=== PATIENT | female | born 1965 | race Caucasian/White ===

== ENCOUNTER 2016-02-29 18:03 | Emergency (ER) | payer BC, OTHER ==
[~2016-02-29] VITALS: Ht 157.5 cm; Wt 91.1 kg
[~2016-02-29 18:03] MED LIST: CARI350T27 PO; HYDR-5688 PO; KLN1X PO
[2016-02-29 18:17] VITALS: Ht 157.5 cm; Wt 91.1 kg
[2016-02-29] MEDS ORDERED: ONDANSETRON INJ 2 MG/ML 2 ML VIAL IV STA (19:45)
[2016-02-29] MEDS ORDERED: SODIUM CHLORIDE 0.9% 1000ML 1,000 ML IV STA (19:45)
[2016-02-29] MEDS ORDERED: KETOROLAC TROMETHAMINE 30 MG/ML VIAL IV STA (19:45)
[2016-02-29] MEDS ORDERED: HYDROmorphone INJ 0.5 MG/0.5 ML SYR IV STA ×2 (20:04→21:24)
[2016-02-29 20:30] LABS: BASO % 0.1 %; BASO ABS # 0.01 K/uL (0-0.2); COMPLETE YES; EOS % 3.1 %; HEMATOCRIT 35.4 % (37-47); IG% 0.1 %; LYMPH % 25.8 %; LYMPH ABS # 1.76 K/uL (1.2-3.4); MEAN CELL VOLUME 92.7 fL (80-100); MEAN CORPUSCULAR HEMOGLOBIN 32.2 pg (25-34); MEAN CORPUSCULAR HGB CONC 34.7 g/dl (32-36); MEAN PLATELET VOLUME 8.7 fL (7.4-10.4); MONO % 4.4 %; NEUT % 66.5 %; PLATELET COUNT 310 K/uL (130-400); RED BLOOD COUNT 3.82 M/uL (4.2-5.4); WHITE BLOOD COUNT 6.83 K/uL (4.8-10.8)
[2016-02-29 20:34] LABS: URINE APPEARANCE CLEAR (CLEAR); URINE BILIRUBIN NEG (NEG); URINE COLOR YELLOW; URINE EPITHELIAL CELL AUTO 20-30 /lpf (0-5); URINE NITRITE NEG (NEG); URINE PH 5.5 (4.5-7.5); URINE SPECIFIC GRAVITY 1.017 (1.000-1.030); UROBILINOGEN NEG (NEG); ZZUR CULT IF INDIC CLEAN CATCH NO
[2016-02-29 20:44] LABS: MANUAL MICROSCOPIC REQUIRED? NO; REVIEW REQ? NO
[2016-02-29 20:50] LABS: BUN/CREATININE RATIO 16.5 (10-20); CREATININE 1.2 mg/dl (0.60-1.20); POTASSIUM 3.8 mmol/L (3.5-5.1)
--- NOTE | 2016-02-29 21:17 | DIAGNOSTIC IMAGING REPORT ---
CT OF THE ABDOMEN AND PELVIS WITHOUT CONTRAST, STONE PROTOCOL CLINICAL HISTORY: Costovertebral angle tenderness. History of kidney stones. COMPARISON STUDY: CT of the abdomen and pelvis April 14, 2015 and renal ultrasound May 14, 2015. TECHNIQUE: Helical axial images of the abdomen and pelvis were obtained without IV or oral contrast according to renal stone protocol. FINDINGS: Lung bases are clear. There is a small hiatal hernia. A 4 mm left renal calculus is noted as well as a 2 mm right renal calculus. There are no ureteral calculi. There is no hydronephrosis. There is no perinephric infiltration. Evaluation of the remainder of the abdomen and pelvis is suboptimal on this unenhanced exam. The liver, spleen, adrenal glands and pancreas are normal. There is no evidence for a bowel obstruction. The appendix is partially obscured but visualized portions are normal. IMPRESSION: 1. Bilateral nephrolithiasis. No ureteral calculi or hydronephrosis. 2. No acute process within the abdomen or pelvis on unenhanced exam. Electronically signed by: Anjel Meza M.D. 02/29/2016 9:16 PM Dictated Date/Time: 02/29/2016 9:06 PM
--- NOTE | 2016-02-29 22:34 | DIAGNOSTIC IMAGING REPORT ---
HEAD CT NONCONTRAST CT DOSE: 691.05 mGy.cm HISTORY: Headache TECHNIQUE: Multiaxial CT images of the head were performed without the use of intravenous contrast. Automated exposure control was utilized for this study. Comparison: Head CT 12/08/2015. Findings: The paranasal sinuses and mastoid air cells are clear. The calvarium and skull base are intact. The ventricles and sulci are within normal limits. There is no mass, hematoma, midline shift, or acute infarct. Impression: No acute intracranial abnormality. Electronically signed by: Dwain Gaspar M.D. 02/29/2016 10:33 PM Dictated Date/Time: 02/29/2016 10:29 PM
--- NOTE | 2016-03-01 00:01 | Medical Consult ---
Consultation Date of Consultation: Feb 29, 2016. Attending Physician: Reason for Consultation: Migraine History of Present Illness 50 y/o F w/Hx HTN, hypothyroid and chronic HAs - combination of cervical and migranous. Pt states that she has approximately 2 headaches weekly. Today she developed a DALLAS that was not responding to her meds and presented to the ER as a result. She states she has an upset stomach but has not had vomited and has been able to tolerate her medications. She describes her pain as tracking from the back of her neck over her head to behind her eye, throbbing in nature and leading to difficulty focusing her vision on the R. She had accompanying b/l back lower back pain without dysuria or hematuria. She has not had a fever or vision loss. A CTH in the ER was WNL. She responded to IV narcotics and as she is tolerating PO can likely be D/Cd with an oral equivalent. Past Medical/Surgical History Medical Problems: (1) Closed head injury Status: Acute (2) Dysuria Status: Acute (3) Flank pain Status: Acute (4) Flank pain Status: Acute (5) Headache Status: Acute (6) Headache Status: Acute (7) Headache Status: Acute Family History Diabetes mellitus Heart disease Hypertension Social History Smoking Status: Never Smoker Drug Use: none Marital Status: Housing Status: lives with family Occupation Status: employed Allergies Coded Allergies: Paroxetine (Verified Allergy, Intermediate, nauseous, 11/28/15) Butorphanol (Verified Allergy, Unknown, nauseous, 11/28/15) Cortisone (Verified Allergy, Unknown, HIVES,facial swelling, 11/28/15) Sulfa Drugs (Verified Allergy, Unknown, 11/28/15) Morphine (Verified Adverse Reaction, Mild, nauesous, 11/28/15) Iodine (Verified Adverse Reaction, Unknown, itch, 11/28/15) Review of Systems Constitutional: No chills, No fever, No sweats Eyes: + eye pain, + worsening of vision ENT: No hearing loss, No nasal symptoms, No unusual epistaxis Respiratory: No cough, No sputum, No wheezing Cardiovascular: No PND, No chest pain, No orthopnea Abdomen: + nausea, + pain, No vomiting Musculoskeletal: No joint pain, No muscle pain Genitourinary - Female: No dysuria, No urinary frequency Neurologic: No memory loss, No paralysis, No weakness Psychiatric: No depression symptoms Endocrine: No excessive thirst, No fatigue Hematologic / Lymphatic: No abnormal bleeding/bruising Integumentary: No rash Allergic / Immunologic: No environmental allergies, No pet sensitivities, No seasonal allergies Physical Exam Date Time Temp Pulse Resp B/P Pulse Ox O2 Delivery O2 Flow Rate FiO2 02/29/16 23:03 86 18 138/85 95 Room Air 02/29/16 21:07 87 18 144/80 97 Room Air 02/29/16 18:17 37.4 111 18 151/87 96 Room Air General Appearance: WD/WN, no apparent distress Head: normocephalic, atraumatic Eyes: normal inspection, PERRL, EOMI ENT: normal ENT inspection, pharynx normal Neck: supple, no JVD Respiratory/Chest: chest non-tender, lungs clear, normal breath sounds, no respiratory distress, no accessory muscle use Cardiovascular: regular rate, rhythm, no edema, no gallop, no JVD, no murmur, normal peripheral pulses Abdomen/GI: normal bowel sounds, non tender, soft Back: normal inspection, no CVA tenderness, no muscle spasm, normal range of motion Extremities/Musculoskelatal: normal inspection, no calf tenderness, normal capillary refill, no pedal edema, normal range of motion 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, no motor/sensory deficits, alert, normal mood/affect, normal reflexes, oriented x 3 Skin: normal color, warm/dry, no rash Laboratory Results Last 24 Hours Test 02/29/16 20:00 02/29/16 20:10 Urine Color YELLOW Urine Appearance CLEAR Urine pH 5.5 Urine Specific [place] 1.017 Urine Protein NEG Urine Glucose (UA) NEG Urine Ketones TRACE Urine Occult Blood NEG Urine Nitrite NEG Urine Bilirubin NEG Urine Urobilinogen NEG Urine Leukocyte Esterase TRACE Urine WBC (Auto) 1-5 /hpf Urine RBC (Auto) 0-4 /hpf Urine Hyaline Casts (Auto) 1-5 /lpf Urine Epithelial Cells (Auto) 20-30 /lpf Urine Bacteria (Auto) NEG White Blood Count 6.83 K/uL Red Blood Count 3.82 M/uL Hemoglobin 12.3 g/dL Hematocrit 35.4 % Mean Corpuscular Volume 92.7 fL Mean Corpuscular Hemoglobin 32.2 pg Mean Corpuscular Hemoglobin Concent 34.7 g/dl Platelet Count 310 K/uL Mean Platelet Volume 8.7 fL Neutrophils (%) (Auto) 66.5 % Lymphocytes (%) (Auto) 25.8 % Monocytes (%) (Auto) 4.4 % Eosinophils (%) (Auto) 3.1 % Basophils (%) (Auto) 0.1 % Neutrophils # (Auto) 4.54 K/uL Lymphocytes # (Auto) 1.76 K/uL Monocytes # (Auto) 0.30 K/uL Eosinophils # (Auto) 0.21 K/uL Basophils # (Auto) 0.01 K/uL RDW Standard Deviation 43.7 fL RDW Coefficient of Variation 12.8 % Immature Granulocyte % (Auto) 0.1 % Immature Granulocyte # (Auto) 0.01 K/uL Sodium Level 141 mmol/L Potassium Level 3.8 mmol/L Chloride Level 104 mmol/L Carbon Dioxide Level 25 mmol/L Anion Gap 12.0 mmol/L Blood Urea Nitrogen 20 mg/dl Creatinine 1.20 mg/dl Est Creatinine Clear Calc Drug Dose 58.9 ml/min Estimated GFR () 61.0 Estimated GFR (Non- 52.7 BUN/Creatinine Ratio 16.5 Random Glucose 87 mg/dl Calcium Level 9.0 mg/dl Magnesium Level 2.2 mg/dl Total Bilirubin 0.4 mg/dl Aspartate Amino Transf (AST/SGOT) 12 U/L Alanine Aminotransferase (ALT/SGPT) 16 U/L Alkaline Phosphatase 119 U/L Total Protein 8.0 gm/dl Albumin 4.0 gm/dl Globulin 4.0 gm/dl Albumin/Globulin Ratio 1.0 Assessment & Plan 50 y/o F w/Hx HTN, hypothyroid and chronic HAs - combination of cervical and migranous. Pt states that she has approximately 2 headaches weekly. Today she developed a DALLAS that was not responding to her meds and presented to the ER as a result. She states she has an upset stomach but has not had vomited and has been able to tolerate her medications. She describes her pain as tracking from the back of her neck over her head to behind her eye, throbbing in nature and leading to difficulty focusing her vision on the R. She had accompanying b/l lower back pain without dysuria or hematuria. She has not had a fever or vision loss. She responded to IV narcotics and as she is tolerating PO can likely be D /Cd with an oral equivalent. 1) DALLAS - Pt responded to Dilaudid - discussed with ER attending and we will recommend a taper for home - she does not tolerate steroids - she will continue her propranolol and SL Zofran and has been told to make an appt with her neurologist at the earliest possible time. 2) Back ache - no obstruction on CT - no pyelo/hydro - pain is acute on chronic - f/u with primary and neurologist 3) Hypothyroid - cont Synthroid 4) HTN - takes Propranolol to double as migraine prophylaxis Total time for this consult including review of labs, records, imaging - discussion w/pt and ER attending - 28 min
[2016-03-01] MEDS ORDERED: ONDANSETRON 4MG OD TAB PO STA (00:02)
[2016-03-01] MEDS ORDERED: ONDANSETRON HOME PACK 4MG OD TAB PO STA (00:07)
[2016-03-01] MEDS ORDERED: OXYCODONE HCL IR 5 MG TAB (IMMEDIATE RELEASE) PO STA (00:07)
[2016-03-01] MEDS ORDERED: OXYCODONE IR HOME PACK PO STA (00:07)
[2016-03-01] MEDS ORDERED: ONDA4TAB10 SL (00:22)
[2016-03-01] MEDS ORDERED: OXYC1TAB3 PO (00:22)
--- NOTE | 2016-03-01 00:25 | EMERGENCY ROOM VISIT NOTE ---
History First contact with patient: 19:20 Chief Complaint: HEADACHE Stated Complaint: MIGRAINE,DIZZY,BACK PAIN History of Present Illness The patient is a 50 year old female who presents to the Emergency Room via private vehicle with complaints of "migraine, dizzy, back pain". Patient states that she usually gets migraines once a week and takes Elavil nightly for prevention. She states that yesterday around 3 PM she began with a gradual onset, headache behind the right eye rated as a 7/10. She states she took 4 mg of Zofran around 1 PM and then at 7 AM with minimal relief. There has been an associated dizziness with movement as well as lightheadedness upon standing. There was also back pain feels like kidney stones according to the patient. There is a history of kidney stones within the left kidney. Patient also states that she feels she may have infection in her mouth as she had her teeth pulled 3 weeks ago and has been experiencing drainage that is foul in nature. She denies any vomiting, urinary symptoms, abdominal pain, lower extremity weakness, bowel or bladder incontinence, numbness or tingling in her genital region, chest pain, shortness of breath, tobacco use, control use. She states her typical regimen is Zofran, Toradol and Dilaudid. The low back pain is rated as a 6/10 in the lumbar region to the sides. Review of Systems A complete 10-point Review of Systems was discussed with the patient, with pertinent positives and negatives listed in the History of Present Illness. All remaining Review of Systems questions can be considered negative unless otherwise specified. Past Medical/Surgical History Medical Problems: (1) HTN (hypertension) (2) Migraine Family History Diabetes mellitus Heart disease Hypertension Social History Smoking Status: Never Smoker Drug Use: none Marital Status: Housing Status: lives with family Occupation Status: employed Current/Historical Medications Scheduled Amitriptyline Hcl (Elavil), 75 MG PO HS Carisoprodol (Soma), 350 MG PO QID Escitalopram Oxalate (Escitalopram Oxalate), 10 MG PO DAILY Levothyroxine Sodium (Levothyroxine Sodium), 175 MCG PO DAILY Loperamide Hcl (Imodium), 2 MG PO PRN UD Ondasetron Odt (Zofran Odt), 4 MG SL Q6H Propranolol Hcl (Propranolol Hcl Er), 160 MG PO QAM Scheduled PRN Oxycodone Ir (Roxicodone Ir), 1-2 TAB PO Q4H PRN for Pain Allergies Coded Allergies: Paroxetine (Verified Allergy, Intermediate, nauseous, 11/28/15) Butorphanol (Verified Allergy, Unknown, nauseous, 11/28/15) Cortisone (Verified Allergy, Unknown, HIVES,facial swelling, 11/28/15) Sulfa Drugs (Verified Allergy, Unknown, 11/28/15) Morphine (Verified Adverse Reaction, Mild, nauesous, 11/28/15) Iodine (Verified Adverse Reaction, Unknown, itch, 11/28/15) Physical Exam Vital Signs Date Time Temp Pulse Resp B/P Pulse Ox O2 Delivery O2 Flow Rate FiO2 03/01/16 01:55 37.4 78 16 128/66 98 03/01/16 00:53 81 16 152/95 97 Room Air 02/29/16 23:03 86 18 138/85 95 Room Air 02/29/16 21:07 87 18 144/80 97 Room Air 02/29/16 18:17 37.4 111 18 151/87 96 Room Air Physical Exam VITAL SIGNS - Vital signs and nursing notes were reviewed. Patient is afebrile , hypertensive at 151/87, tachycardic at a rate of 111 bpm and is saturating well on room air at 96%. GENERAL -50-year-old female appearing her stated age who is in no acute distress. Communicates well with provider and answers questions appropriately. SKIN - Without rashes. HEAD - NC/AT. EYES - PERRL with EOMI bilaterally. Sclera anicteric. Palpebral conjunctiva pink and moist with no injection noted. EARS - No deformities of external structures noted on gross examination bilaterally. No pain elicited with palpation of the tragus bilaterally. External auditory canals without discharge or otorrhea. Tympanic membranes pearly jay without retraction or bulging. No fluid or purulent material visualized behind the TM. Handle of malleus, umbo, cone of light, pars tensa/ flaccid all easily visualized. NOSE - Midline and without cyanosis. No epistaxis or purulent drainage noted. Septum midline without deviation or septal hematoma noted. MOUTH/OROPHARYNX - Without perioral cyanosis. Buccal mucosa pink and moist and without leukoplakia. Tongue midline with equal elevation of palate bilaterally. No tonsillar hypertrophy, erythema, or exudates noted. No dentition noted. There is evidence of slight retained food in some of the cavities created by the extracted teeth. I do not appreciate any signs of infection or abscess. No Bryce angina signs or symptoms. NECK - Neck with FROM. Supple to palpation. No lymphadenopathy noted. No nuchal rigidity. LUNGS - Chest wall symmetric without accessory muscle use, intercostals retractions, or central cyanosis. Normal vesicular breath sounds CTA B/L. No wheezes, rales, or rhonchi appreciated. CARDIAC - RRR with S1/S2. No murmur, rubs, or gallops appreciated. ABDOMEN - Abdominal contour without pulsations or visible masses. BS normoactive all four quadrants. No tenderness, palpable masses, hepatosplenomegaly, or ascites noted. MUSCULOSKELETAL: There is tenderness to palpation overlying the paraspinous musculature of the lumbar spine. There is positive CVA tenderness. EXTREMITIES - No clubbing or peripheral cyanosis. No pretibial edema present. +3 /5 radial, posterior tibial, and dorsalis pedis pulses palpated throughout. +5/ 5 strength noted in UE/LE bilaterally. NEUROLOGIC - Cranial nerves II through XII grossly intact. Sensory intact to light touch throughout. Patellar reflexes +2/4. PSYCH - A&Ox3 and cooperates fully with examiner. Pt is very pleasant and interacts well with examiner. Medical Decision & Procedures ER Provider Diagnostic Interpretation: HEAD CT NONCONTRAST CT DOSE: 691.05 mGy.cm HISTORY: Headache TECHNIQUE: Multiaxial CT images of the head were performed without the use of intravenous contrast. Automated exposure control was utilized for this study. Comparison: Head CT 12/08/2015. Findings: The paranasal sinuses and mastoid air cells are clear. The calvarium and skull base are intact. The ventricles and sulci are within normal limits. There is no mass, hematoma, midline shift, or acute infarct. Impression: No acute intracranial abnormality. Electronically signed by: Dwain Gaspar M.D. 02/29/2016 10:33 PM Dictated Date/Time: 02/29/2016 10:[address] OF THE ABDOMEN AND PELVIS WITHOUT CONTRAST, STONE PROTOCOL CLINICAL HISTORY: Costovertebral angle tenderness. History of kidney stones. COMPARISON STUDY: CT of the abdomen and pelvis April 14, 2015 and renal ultrasound May 14, 2015. TECHNIQUE: Helical axial images of the abdomen and pelvis were obtained without IV or oral contrast according to renal stone protocol. FINDINGS: Lung bases are clear. There is a small hiatal hernia. A 4 mm left renal calculus is noted as well as a 2 mm right renal calculus. There are no ureteral calculi. There is no hydronephrosis. There is no perinephric infiltration. Evaluation of the remainder of the abdomen and pelvis is suboptimal on this unenhanced exam. The liver, spleen, adrenal glands and pancreas are normal. There is no evidence for a bowel obstruction. The appendix is partially obscured but visualized portions are normal. IMPRESSION: 1. Bilateral nephrolithiasis. No ureteral calculi or hydronephrosis. 2. No acute process within the abdomen or pelvis on unenhanced exam. Electronically signed by: Anjel Meza M.D. 02/29/2016 9:16 PM Dictated Date/Time: 02/29/2016 9:06 PM Laboratory Results 02/29/16 20:10 Red Blood Count 3.82, Mean Corpuscular Volume 92.7, Mean Corpuscular Hemoglobin 32.2, Mean Corpuscular Hemoglobin Concent 34.7, Mean Platelet Volume 8.7, Neutrophils (%) (Auto) 66.5, Lymphocytes (%) (Auto) 25.8, Monocytes (%) (Auto) 4.4, Eosinophils (%) (Auto) 3.1, Basophils (%) (Auto) 0.1, Neutrophils # (Auto) 4.54, Lymphocytes # (Auto) 1.76, Monocytes # (Auto) 0.30, Eosinophils # (Auto) 0.21, Basophils # (Auto) 0.01 02/29/16 20:10 Test 02/29/16 20:00 02/29/16 20:10 Urine Color YELLOW Urine Appearance CLEAR (CLEAR) Urine pH 5.5 (4.5-7.5) Urine Specific Fithian 1.017 (1.000-1.030) Urine Protein NEG (NEG) Urine Glucose (UA) NEG (NEG) Urine Ketones TRACE (NEG) Urine Occult Blood NEG (NEG) Urine Nitrite NEG (NEG) Urine Bilirubin NEG (NEG) Urine Urobilinogen NEG (NEG) Urine Leukocyte Esterase TRACE (NEG) Urine WBC (Auto) 1-5 /hpf (0-5) Urine RBC (Auto) 0-4 /hpf (0-4) Urine Hyaline Casts (Auto) 1-5 /lpf (0-5) Urine Epithelial Cells (Auto) 20-30 /lpf (0-5) Urine Bacteria (Auto) NEG (NEG) White Blood Count 6.83 K/uL (4.8-10.8) Red Blood Count 3.82 M/uL (4.2-5.4) Hemoglobin 12.3 g/dL (12.0-16.0) Hematocrit 35.4 % (37-47) Mean Corpuscular Volume 92.7 fL (80-100) Mean Corpuscular Hemoglobin 32.2 pg (25-34) Mean Corpuscular Hemoglobin Concent 34.7 g/dl (32-36) Platelet Count 310 K/uL (130-400) Mean Platelet Volume 8.7 fL (7.4-10.4) Neutrophils (%) (Auto) 66.5 % Lymphocytes (%) (Auto) 25.8 % Monocytes (%) (Auto) 4.4 % Eosinophils (%) (Auto) 3.1 % Basophils (%) (Auto) 0.1 % Neutrophils # (Auto) 4.54 K/uL (1.4-6.5) Lymphocytes # (Auto) 1.76 K/uL (1.2-3.4) Monocytes # (Auto) 0.30 K/uL (0.11-0.59) Eosinophils # (Auto) 0.21 K/uL (0-0.5) Basophils # (Auto) 0.01 K/uL (0-0.2) RDW Standard Deviation 43.7 fL (36.4-46.3) RDW Coefficient of Variation 12.8 % (11.5-14.5) Immature Granulocyte % (Auto) 0.1 % Immature Granulocyte # (Auto) 0.01 K/uL (0.00-0.02) Anion Gap 12.0 mmol/L (3-11) Est Creatinine Clear Calc Drug Dose 58.9 ml/min Estimated GFR () 61.0 Estimated GFR (Non- 52.7 BUN/Creatinine Ratio 16.5 (10-20) Calcium Level 9.0 mg/dl (8.5-10.1) Magnesium Level 2.2 mg/dl (1.8-2.4) Total Bilirubin 0.4 mg/dl (0.2-1) Aspartate Amino Transf (AST/SGOT) 12 U/L (15-37) Alanine Aminotransferase (ALT/SGPT) 16 U/L (12-78) Alkaline Phosphatase 119 U/L (45-117) Total Protein 8.0 gm/dl (6.4-8.2) Albumin 4.0 gm/dl (3.4-5.0) Globulin 4.0 gm/dl (2.5-4.0) Albumin/Globulin Ratio 1.0 (0.9-2) Medications Administered Medications (Trade) Dose Ordered Sig/Sandra Route Start Time Stop Time Status Last Admin Dose Admin Ondansetron HCl (Zofran Inj) 4 mg NOW STAT IV 02/29/16 19:45 02/29/16 19:51 DC 02/29/16 20:27 4 MG Ketorolac Tromethamine 30 mg 30 mg NOW STAT IV 02/29/16 19:45 02/29/16 19:51 DC 02/29/16 20:27 30 MG Sodium Chloride (Nss 1000ml) 1,000 ml @ 999 mls/hr Q1H1M STAT IV 02/29/16 19:45 02/29/16 20:45 DC 02/29/16 20:27 999 MLS/HR Hydromorphone HCl (Dilaudid Inj) 0.5 mg NOW STAT IV 02/29/16 20:04 02/29/16 20:05 DC 02/29/16 20:27 0.5 MG Hydromorphone HCl (Dilaudid Inj) 0.5 mg NOW STAT IV 02/29/16 21:24 02/29/16 21:25 DC 02/29/16 21:31 0.5 MG Ondansetron HCl (Zofran Odt) 4 mg NOW STAT PO 03/01/16 00:02 03/01/16 00:03 DC 03/01/16 00:15 4 MG Oxycodone HCl (Roxicodone Immediate Rel 5MG Home Pack) 1 homepack UD STAT PO 03/01/16 00:07 03/01/16 00:11 DC 03/01/16 01:55 1 HOMEPACK Ondansetron HCl (ZOFRAN ODT 4MG Home Pack) 1 homepack UD STAT PO 03/01/16 00:07 03/01/16 00:11 DC 03/01/16 01:55 1 HOMEPACK Oxycodone HCl (Roxicodone Immediate Rel Tab) 5 mg NOW STAT PO 03/01/16 00:07 03/01/16 00:11 DC 03/01/16 00:15 5 MG Prochlorperazine Edisylate (Compazine Inj) 10 mg NOW STAT IV 03/01/16 00:37 03/01/16 00:39 DC 03/01/16 00:46 10 MG Diphenhydramine HCl (Benadryl Inj) 25 mg NOW STAT IV 03/01/16 00:37 03/01/16 00:39 DC 03/01/16 00:46 25 MG Medical Decision Patient was seen and evaluated as above. After obtaining a thorough history and physical examination it was evident the patient was experiencing symptoms beyond her typical migraine to include the back pain and dizziness. IV access was established and a CBC, CMP, CT scan of the abdomen and pelvis without contrast for stone, UA clean catch culture if indicated secondary to subjective and objective examination findings. She was given Zofran via IV as well as Toradol for her pain in addition to a liter of normal saline. 0.5 mg of Dilaudid was also ordered. She was reassessed and noted to be feeling slightly better but was still experiencing pain therefore 0.5 more milligrams of Dilaudid was ordered. In addition magnesium was ordered as the patient noted that this was typically abnormal for her. In review of the patient's lab work CBC revealed no leukocytosis but slight anemia and the CMP revealed a slightly higher BUN and borderline abnormal creatinine with low AST and elevated alkaline phosphatase. These were discussed with the patient and she was instructed to follow-up regarding these. Urine revealed trace ketones, trace leukocyte esterase and likely evidence of a contaminated sample with 20-30 epithelial cells. Without the patient being febrile, and no evidence of contaminated urine, no leukocytosis, or findings on CT scan I do believe that pyelonephritis is less likely in this case and believe that the CVA tenderness may be secondary musculoskeletal pain in the muscles in the lumbar spine. Because the patient did not have great relief with the morphine I did feel that admission may be warranted. A CT of the head was ordered as the patient's headache had increased with results as above which was within normal limits. CT of the abdomen was also ordered with results as above which revealed renal calculi but no acute process. I discussed this with the patient who verbalized she would like this therefore spoke with the hospitalist, Dr. Avila, who personally evaluated the patient. I then spoke with him and the decision was then made to send the patient home. I talked with the patient about this and she was a bit confused as to the plan was as spoke with her about benefits versus risk stay in the hospital. It was decided that she could go home and I was able to provide her a medication as well as antinausea medication. A trial of by mouth pain meds were tried here and failed. 12.5 mg of Phenergan was ordered but then I talked with the patient who stated she was experiencing worsening of her headache after that subsided therefore 10 mg of Compazine and 25 mg of Benadryl was ordered with great relief of her pain. The 5 mg of OxyIR and 4 mg of Zofran ODT were the trial meds. When she was reassessed and noted be feeling much better she was given a home pack for Zofran and OxyIR after verifying no red flags in the system for drug monitoring. She was calling her to come pick her up to drive her home. She is to follow up with her family doctor regarding today's visit and have repeat labs. She verbalizes understanding. She had questions answered prior to discharge and was discharged home in good condition. I believe the patient's pain is likely secondary to her typical migraines with potential superimposed muscle skeletal back pain. I again do not suspect pyelonephritis as there is no leukocytosis, evidence of urinary infection, no fever or any other to suggest. She is to follow up with family doctor in case visit. She had questions answered prior to discharge and was discharged home in good condition. In the evaluation and treatment of this patient, the following differential diagnoses were considered: Migraine Headache, Intracranial Hemorrhage, Subdural Hematoma, Subarachnoid Hemorrhage, Cerebral Aneurysm, Temporal/Giant Cell Arteritis, Tension Headache, Meningitis, Encephalitis, pyelonephritis, muscle skeletal strain, among others or Hydrocephalus. [place] Drug Monitoring Program Search Results: patient reviewed within database, no issues identified Impression Primary Impression: Headache Additional Impressions: Low back pain Anemia Departure Information Dispostion Home / Self-Care Condition GOOD Prescriptions Ondasetron Odt (ZOFRAN ODT) 4 Mg Tab 4 MG SL Q6H for Nausea, #15 TAB Prov: Bamat, Errol W., PA-C 03/01/16 Oxycodone Ir (Roxicodone Ir) 5 Mg Tab 1-2 TAB PO Q4H Y for Pain, #15 TAB For Initial Treatment Prov: Errol Kebede PA-C 03/01/16 Referrals Sangeeta Tejeda M.D. (PCP) Patient Instructions My [facility] Additional Instructions You have been treated in the Emergency Department for a Headache and Back Pain.You have received pain medicine in the emergency department which impairs your ability to operate a vehicle. It is illegal for you to drive after receiving these medicines. Your BUN and Creatinine were both elevated here today. The Creatinine was at our high limit of normal (1.20) please have these repeated with your family doctor. You were also slightly anemia and your ALK PHOS was also elevated. These are non emergent but should be follow up by your family doctor as soon as possible. You have been prescribed Oxy IR to be used for pain control. This is a narcotic medication. You cannot drive or consume alcohol while on this medicine. This medicine should only be used for pain that cannot be controlled with over-the- counter pain medicines. Please consider taking this with a stool softener. You've been prescribed Zofran for her nausea. Please be careful as this can cause an abnormality with the left rhythm of your heart and taken with your lexapro. Please continue your prescribed medications and only take the zofran as needed. For pain control, you can use the following [id number] medicines (if >12 yo): - Regular strength (325mg/tab) Tylenol (acetaminophen) 2 tabs every 4-6 hours as needed. Do not exceed 12 tablets in a 24 hour period. Avoid taking more than 4 grams (4000 mg) of Tylenol per day. This includes any other sources of acetaminophen you may take on a regular basis. - Regular strength (200 mg/tab) Advil (ibuprofen) 1-2 tabs every 4-6 hours as needed. Do not exceed a dose of 3200 mg per day. You should relax in a quiet, dark place for the rest of the day. Avoid any possible triggers including: cigarette smoke, caffeine, nicotine, chocolate, wine, beer, loud noises or music, or bright lights. You should schedule a follow-up appointment with your Primary Care Provider for further evaluation and treatment of your Headache and back pain. Return to the Emergency Department if your current symptoms worsen despite treatment course outlined above, or if you develop any of the following symptoms : intractable pain despite aforementioned treatment course, visual disturbances , loss of vision, unilateral weakness or facial drooping, slurring of speech, loss of coordination, or loss of consciousness. Please return to emergency department with any new/concerning symptoms. Problem Qualifiers Primary Impression: Headache Headache type: unspecified Headache chronicity pattern: acute headache Intractability: not intractable Qualified Codes: R51 - Headache Additional Impressions: Low back pain Chronicity: acute Back pain laterality: bilateral Sciatica presence: without sciatica Qualified Codes: M54.5 - Low back pain
[2016-03-01] MEDS ORDERED: PROMETHAZINE HCL INJ 12.5 MG in SODIUM CHLORIDE 0.9% 50ML 50 ML IV STA (00:30)
[2016-03-01] MEDS ORDERED: DiphenhydrAMINE HCL 50 MG/ML VIAL IV STA (00:37)
[2016-03-01] MEDS ORDERED: PROCHLORPERAZINE 5 MG/ML 2 ML VIAL IV STA (00:37)
[2016-03-01 01:55] VITALS: BP 128/66; PULSE 78; TEMP 37.4; O2SAT 98
[2016-05-03] MEDS ORDERED: LXP10 PO (16:26)
== END 2016-03-01 01:56 | disposition home or self-care (01) ==
LOC: C.EDB 18:04
DX: R51 Headache (principal); M54.5 Low back pain; D64.9 Anemia, unspecified; I10 Essential (primary) hypertension; Z79.899 Other long term (current) drug therapy

== ENCOUNTER 2016-03-23 18:01 | Emergency (ER) | payer BC, OTHER ==
[~2016-03-23] VITALS: Ht 157.5 cm; Wt 92.4 kg
[~2016-03-23 18:01] MED LIST changes: -HYDR-5688 PO; -KLN1X PO; +ONDA4TAB10 SL; +OXYC1TAB3 PO
[2016-03-23 18:04] VITALS: TEMP 36.9; Ht 157.5 cm; Wt 92.4 kg
[2016-03-23] MEDS ORDERED: SODIUM CHLORIDE 0.9% 1000ML 1,000 ML IV STA (18:18)
[2016-03-23] MEDS ORDERED: KETOROLAC TROMETHAMINE 30 MG/ML VIAL IV STA (18:18)
[2016-03-23] MEDS ORDERED: DiphenhydrAMINE HCL 50 MG/ML VIAL IV STA (18:18)
[2016-03-23] MEDS ORDERED: HYDROmorphone INJ 0.5 MG/0.5 ML SYR IV STA (18:18)
[2016-03-23] MEDS ORDERED: PROCHLORPERAZINE 5 MG/ML 2 ML VIAL IV STA (18:18)
--- NOTE | 2016-03-23 18:23 | EMERGENCY ROOM VISIT NOTE ---
History Report prepared by Paula: Luca Roberts Under the Supervision of: Dr. Rachael Thomas M.D. First contact with patient: 18:10 Chief Complaint: HEADACHE Stated Complaint: MIGRAINE History of Present Illness The patient is a 50 year old female who presents to the Emergency Room with complaints of a worsening migraine headache that started this morning. She says this is a classic migraine for her and the pain is up there with her worst headache ever, with a rating of 8 out of 10 in severity. The patient says the pain is behind her left eye, and she notes that her stomach is very nauseous. She states that she felt feverish the past couple days but she did not take her temperature. The patient denies any vomiting or visual changes. She says that Toradol, Dilaudid, and Zofran typically work for her. The patient notes that she had a tooth pulled on her left side recently and she does not know if it perhaps triggered her migraine today. Source of History: patient Onset: This morning Position: head Symptom Intensity: 8 out of 10 in severity Quality: other (classic migraine) Timing: worsening Associated Symptoms: + nausea, No vomiting Note: Associated symptoms: Denies visual changes. Review of Systems See HPI for pertinent positives & negatives. A total of 10 systems reviewed and were otherwise negative. Past Medical & Surgical Medical Problems: (1) HTN (hypertension) (2) Migraine Family History Diabetes mellitus Heart disease Hypertension Social History Smoking Status: Never Smoker Drug Use: none Marital Status: Housing Status: lives with family Occupation Status: employed Current/Historical Medications Scheduled Amitriptyline Hcl (Elavil), 75 MG PO HS Carisoprodol (Soma), 350 MG PO QID Escitalopram Oxalate (Escitalopram Oxalate), 10 MG PO DAILY Levothyroxine Sodium (Levothyroxine Sodium), 175 MCG PO DAILY Loperamide Hcl (Imodium), 2 MG PO PRN UD Ondasetron Odt (Zofran Odt), 4 MG SL Q6H Propranolol Hcl (Propranolol Hcl Er), 160 MG PO QAM Allergies Coded Allergies: Paroxetine (Verified Allergy, Intermediate, nauseous, 03/23/16) Butorphanol (Verified Allergy, Unknown, nauseous, 03/23/16) Cortisone (Verified Allergy, Unknown, HIVES,facial swelling, 03/23/16) Sulfa Drugs (Verified Allergy, Unknown, 03/23/16) Morphine (Verified Adverse Reaction, Mild, nauesous, 03/23/16) Iodine (Verified Adverse Reaction, Unknown, itch, 03/23/16) Physical Exam Vital Signs Date Time Temp Pulse Resp B/P Pulse Ox O2 Delivery O2 Flow Rate FiO2 03/23/16 19:28 80 20 152/94 97 Room Air 03/23/16 18:58 86 16 133/77 97 Room Air 03/23/16 18:04 36.9 90 18 121/78 98 Room Air Physical Exam Vital signs reviewed. General: Well-appearing 50 year old female, in no significant distress. HEENT: No scleral icterus, PERRLA, neck supple. Atraumatic. Cardiovascular: Regular rate and rhythm, no extra sounds. Pulmonary: Clear to auscultation bilaterally, normal work of breathing. Abdomen: Soft, nontender, nondistended, positive bowel sounds. Musculoskeletal: Atraumatic, no peripheral edema. Neurologic: Patient awake alert and oriented x 3, full strength in all 4 extremities. Cranial nerves 2 through 12 grossly intact. No meningeal signs. Skin: Warm, dry, no rash Medical Decision & Procedures Laboratory Results 03/23/16 18:40 Red Blood Count 3.58, Mean Corpuscular Volume 93.3, Mean Corpuscular Hemoglobin 31.8, Mean Corpuscular Hemoglobin Concent 34.1, Mean Platelet Volume 9.0, Neutrophils (%) (Auto) 61.5, Lymphocytes (%) (Auto) 28.9, Monocytes (%) (Auto) 6.3, Eosinophils (%) (Auto) 2.9, Basophils (%) (Auto) 0.3, Neutrophils # (Auto) 4.20, Lymphocytes # (Auto) 1.98, Monocytes # (Auto) 0.43, Eosinophils # (Auto) 0.20, Basophils # (Auto) 0.02 03/23/16 18:40 Test 03/23/16 18:40 White Blood Count 6.84 K/uL (4.8-10.8) Red Blood Count 3.58 M/uL (4.2-5.4) Hemoglobin 11.4 g/dL (12.0-16.0) Hematocrit 33.4 % (37-47) Mean Corpuscular Volume 93.3 fL (80-100) Mean Corpuscular Hemoglobin 31.8 pg (25-34) Mean Corpuscular Hemoglobin Concent 34.1 g/dl (32-36) Platelet Count 274 K/uL (130-400) Mean Platelet Volume 9.0 fL (7.4-10.4) Neutrophils (%) (Auto) 61.5 % Lymphocytes (%) (Auto) 28.9 % Monocytes (%) (Auto) 6.3 % Eosinophils (%) (Auto) 2.9 % Basophils (%) (Auto) 0.3 % Neutrophils # (Auto) 4.20 K/uL (1.4-6.5) Lymphocytes # (Auto) 1.98 K/uL (1.2-3.4) Monocytes # (Auto) 0.43 K/uL (0.11-0.59) Eosinophils # (Auto) 0.20 K/uL (0-0.5) Basophils # (Auto) 0.02 K/uL (0-0.2) RDW Standard Deviation 43.0 fL (36.4-46.3) RDW Coefficient of Variation 12.6 % (11.5-14.5) Immature Granulocyte % (Auto) 0.1 % Immature Granulocyte # (Auto) 0.01 K/uL (0.00-0.02) Anion Gap 10.0 mmol/L (3-11) Est Creatinine Clear Calc Drug Dose 75.0 ml/min Estimated GFR () 80.9 Estimated GFR (Non- 69.8 BUN/Creatinine Ratio 18.8 (10-20) Calcium Level 8.6 mg/dl (8.5-10.1) Total Bilirubin 0.3 mg/dl (0.2-1) Direct Bilirubin < 0.1 mg/dl (0-0.2) Aspartate Amino Transf (AST/SGOT) 17 U/L (15-37) Alanine Aminotransferase (ALT/SGPT) 20 U/L (12-78) Alkaline Phosphatase 125 U/L (45-117) Total Protein 7.7 gm/dl (6.4-8.2) Albumin 3.9 gm/dl (3.4-5.0) Laboratory results per my review. Medications Administered Medications (Trade) Dose Ordered Sig/Sandra Route Start Time Stop Time Status Last Admin Dose Admin Prochlorperazine Edisylate (Compazine Inj) 10 mg NOW STAT IV 03/23/16 18:18 03/23/16 18:21 DC 03/23/16 18:52 10 MG Diphenhydramine HCl (Benadryl Inj) 25 mg NOW STAT IV 03/23/16 18:18 03/23/16 18:21 DC 03/23/16 18:46 25 MG Hydromorphone HCl 0.5 mg 0.5 mg NOW STAT IV 03/23/16 18:18 03/23/16 18:21 DC 03/23/16 18:46 0.5 MG Sodium Chloride (Nss 1000ml) 1,000 ml @ 999 mls/hr Q1H1M STAT IV 03/23/16 18:18 03/23/16 19:18 DC 03/23/16 18:45 999 MLS/HR Ketorolac Tromethamine (Toradol Inj) 30 mg NOW STAT IV 03/23/16 18:18 03/23/16 18:21 DC 03/23/16 18:54 30 MG ED Course 1812: Past medical records reviewed. The patient was evaluated in room C6 . A complete history and physical examination was performed. 1817: Ordered Toradol Inj 30 mg IV, NSS 1000 ml @ 999 mls/hr IV, Dilaudid Inj 0.5 mg IV, Benadryl Inj 25 mg IV, Compazine Inj 10 mg IV. 1924: I reevaluated the patient and she is resting comfortably. The patient verbally expressed understanding and agreement of the treatment plan. The patient will be discharged. Medical Decision Differential diagnoses include: Intracranial hemorrhage, intracranial mass, migraine headache, tension headache, sinusitis, meningitis This pt was evaluated and appeared to be in no distress. IV access was obtained and lab work was drawn. 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 She was medicated with IV compazine, benadryl, dilaudid and toradol. She was hydrated with NSS. Pt was feeling much improved on my reevaluation and was d/c to care of her . She will f/u with neurology this week for reevaluation. She will return to the ED for worsening of symptoms or any medical concerns. Impression Primary Impression: Migraine headache Scribe Attestation The scribe's documentation has been prepared under my direction and personally reviewed by me in its entirety. I confirm that the note above accurately reflects all work, treatment, procedures, and medical decision making performed by me. Departure Information Dispostion Home / Self-Care Referrals Sangeeta Tejeda M.D. (PCP) Forms HOME CARE DOCUMENTATION FORM, IMPORTANT VISIT INFORMATION Patient Instructions My [facility] Additional Instructions Diagnosis: Migraine headache Drink plenty of clear fluids. Follow-up with your physician this week for reevaluation if symptoms persist. Return to the ER for worsening of symptoms or any medical concerns. Problem Qualifiers Primary Impression: Migraine headache Migraine type: without aura Status migrainosus presence: without status migrainosus Intractability: intractable Qualified Codes: G43.019 - Migraine without aura, intractable, without status migrainosus
[2016-03-23 18:57] LABS: BASO % 0.3 %; BASO ABS # 0.02 K/uL (0-0.2); COMPLETE YES; EOS % 2.9 %; HEMATOCRIT 33.4 % (37-47); IG% 0.1 %; LYMPH % 28.9 %; LYMPH ABS # 1.98 K/uL (1.2-3.4); MEAN CELL VOLUME 93.3 fL (80-100); MEAN CORPUSCULAR HEMOGLOBIN 31.8 pg (25-34); MEAN CORPUSCULAR HGB CONC 34.1 g/dl (32-36); MONO % 6.3 %; NEUT % 61.5 %; PLATELET COUNT 274 K/uL (130-400); RED BLOOD COUNT 3.58 M/uL (4.2-5.4); WHITE BLOOD COUNT 6.84 K/uL (4.8-10.8)
[2016-03-23 19:06] LABS: ALT/SGPT 20 U/L (12-78); BLOOD UREA NITROGEN 18 mg/dl (7-18); BUN/CREATININE RATIO 18.8 (10-20); CALCIUM 8.6 mg/dl (8.5-10.1); CARBON DIOXIDE 23 mmol/L (21-32); CHLORIDE 108 mmol/L (98-107); CREATININE 0.95 mg/dl (0.60-1.20); GLUCOSE 88 mg/dl (70-99); POTASSIUM 3.9 mmol/L (3.5-5.1); SODIUM 141 mmol/L (136-145)
[2016-03-23 19:09] LABS: ALKALINE PHOSPHATASE 125 U/L (45-117); AST/SGOT 17 U/L (15-37)
[2016-03-23 19:28] VITALS: BP 152/94; PULSE 80; O2SAT 97
[2016-05-03] MEDS ORDERED: LXP10 PO (16:26)
== END 2016-03-23 19:48 | disposition home or self-care (01) ==
LOC: C.EDB 18:01 → C.EDC 19:48
DX: G43.019 Migraine without aura, intractable, without status migrainosus (principal); I10 Essential (primary) hypertension; Z79.899 Other long term (current) drug therapy

== ENCOUNTER 2016-04-20 17:47 | Emergency (ER) | payer BC, OTHER ==
[~2016-04-20] VITALS: Ht 157.5 cm; Wt 94.1 kg
[~2016-04-20 17:47] MED LIST changes: -OXYC1TAB3 PO
[2016-04-20 17:52] VITALS: TEMP 36.8; Ht 157.5 cm; Wt 94.1 kg
[2016-04-20] MEDS ORDERED: HYDROmorphone INJ 0.5 MG/0.5 ML SYR IV STA (18:00)
[2016-04-20] MEDS ORDERED: KETOROLAC TROMETHAMINE 30 MG/ML VIAL IV STA (18:00)
[2016-04-20] MEDS ORDERED: SODIUM CHLORIDE 0.9% 1000ML 1,000 ML IV STA (18:00)
[2016-04-20] MEDS ORDERED: ONDANSETRON INJ 2 MG/ML 2 ML VIAL IV STA (18:00)
--- NOTE | 2016-04-20 18:07 | EMERGENCY ROOM VISIT NOTE ---
History First contact with patient: 17:54 Chief Complaint: HEADACHE Stated Complaint: MIGRAINE History of Present Illness The patient is a 50 year old female who presents to the Emergency Room with complaints of migraine. The patient states her migraine started approximately 6 PM last night. She also states she feels nauseous. The patient has a long- standing history of migraines. She states this feels very typical of her headaches. She had recent imaging of her brain which was normal. She has seen many neurologists. She tried Soma with no relief. She rates her discomfort an 8/10. She denies any fevers, chills, earache, sore throat, cough. She denies any numbness, tingling, weakness. Review of Systems A 10 system review of systems was completed with positives and pertinent negatives listed in the HPI. Past Medical/Surgical History Medical Problems: (1) HTN (hypertension) (2) Migraine Family History Diabetes mellitus Heart disease Hypertension Social History Smoking Status: Never Smoker Drug Use: none Marital Status: Housing Status: lives with family Occupation Status: employed Current/Historical Medications Scheduled Amitriptyline Hcl (Elavil), 75 MG PO HS Carisoprodol (Carisoprodol), 1 CAP PO QID Escitalopram Oxalate (Escitalopram Oxalate), 10 MG PO DAILY Levothyroxine Sodium (Levothyroxine Sodium), 175 MCG PO DAILY Loperamide Hcl (Imodium), 2 MG PO PRN UD Ondasetron Odt (Zofran Odt), 4 MG SL Q6H Propranolol Hcl (Propranolol Hcl Er), 160 MG PO QAM Allergies Coded Allergies: Paroxetine (Verified Allergy, Intermediate, nauseous, 04/20/16) Butorphanol (Verified Allergy, Unknown, nauseous, 04/20/16) Cortisone (Verified Allergy, Unknown, HIVES,facial swelling, 04/20/16) Sulfa Drugs (Verified Allergy, Unknown, 04/20/16) Morphine (Verified Adverse Reaction, Mild, nauesous, 04/20/16) Iodine (Verified Adverse Reaction, Unknown, itch, 04/20/16) Physical Exam Vital Signs Date Time Temp Pulse Resp B/P Pulse Ox O2 Delivery O2 Flow Rate FiO2 04/20/16 20:05 71 18 143/75 98 04/20/16 19:23 73 18 159/92 100 Room Air 04/20/16 17:52 36.8 89 18 158/91 94 Room Air Physical Exam VITALS: Vitals are noted on the nurse's note and reviewed by myself. Vital signs stable. The patient is afebrile. GENERAL: This is a 50-year-old female, in no acute distress, nondiaphoretic, well-developed well-nourished. SKIN: The skin was without rashes, erythema, edema, or bruising. There is no tenting of the skin. Capillary reflex less than 2 seconds. HEAD: Normocephalic atraumatic. EARS: The external ears are normal in appearance. EYES: Pupils equal round and reactive to light and accommodation. Conjunctivae without injection, sclerae without icterus. Extraocular movements intact. NOSE: Patent, turbinates without inflammation or discharge. MOUTH: Mucous membranes moist. Tonsils are not enlarged. Pharynx without erythema or exudate. Uvula midline. Airway patent. Tongue does not deviate. NECK: Supple without nuchal rigidity. No lymphadenopathy. No thyromegaly. Cervical spine is nontender. No JVD. HEART: Regular rate and rhythm without murmurs gallops or rubs. LUNGS: Clear to auscultation bilaterally without wheezes, rales or rhonchi. No retractions or accessory muscle use. MUSCULOSKELETAL: No muscle atrophy, erythema, or edema noted. Full range of motion in all extremities. Normal gait. Strength 5/5 throughout. NEURO: Patient was alert and oriented to person place and time. No focal neurological deficits. Medical Decision & Procedures Medications Administered Medications (Trade) Dose Ordered Sig/Sandra Route Start Time Stop Time Status Last Admin Dose Admin Sodium Chloride (Nss 1000ml) 1,000 ml @ 999 mls/hr Q1H1M STAT IV 04/20/16 18:00 04/20/16 19:00 DC 04/20/16 18:33 999 MLS/HR Ketorolac Tromethamine (Toradol Inj) 30 mg NOW STAT IV 04/20/16 18:00 04/20/16 18:02 DC 04/20/16 18:34 30 MG Ondansetron HCl (Zofran Inj) 4 mg NOW STAT IV 04/20/16 18:00 04/20/16 18:02 DC 04/20/16 18:34 4 MG Hydromorphone HCl (Dilaudid Inj) 0.5 mg NOW STAT IV 04/20/16 18:00 04/20/16 18:02 DC 04/20/16 18:34 0.5 MG Diphenhydramine HCl (Benadryl Inj) 25 mg NOW STAT IV 04/20/16 19:15 04/20/16 19:16 DC 04/20/16 19:23 25 MG Prochlorperazine Edisylate (Compazine Inj) 10 mg NOW STAT IV 04/20/16 19:15 04/20/16 19:16 DC 04/20/16 19:23 10 MG ED Course The patient was seen and examined. Previous reviewed. The patient does not have a fever and is nontoxic in appearance. The patient was hydrated with normal saline She was initially given 30 mg IV Toradol, 4 mg IV Zofran and 0.5 mg IV Dilaudid with moderate improvement in her symptoms She was then given 25 mg IV Benadryl and 10 mg IV Compazine with significant improvement in her symptoms The patient has a long-standing history of migraines and she states this feels very typical of her headaches. She has a neurologist. She is on chronic medications. She has had recent normal imaging. She states this is no different than her typical headache. She does not have a fever and is nontoxic in appearance. She was treated as above and felt better and was discharged home. Medical Decision The differential diagnosis includes: head or neck trauma, cerebrovascular disorders, intracranial lesions, infection,transient ischemic attack (TIA), CVA , seizure, syncope, intracranial mass, intracranial bleeding and vestibular disorders, among others Impression Primary Impression: Migraine Departure Information Dispostion Home / Self-Care Condition GOOD Referrals Sangeeta Tejeda M.D. (PCP) Patient Instructions ED Headache Migraine, My [facility] Additional Instructions Follow-up with your neurologist for further evaluation and management Return with any worsening symptoms Problem Qualifiers Primary Impression: Migraine
[2016-04-20] MEDS ORDERED: [UNRECOGNIZED DRUG - OTHER] PO (18:18)
[2016-04-20] MEDS ORDERED: PROCHLORPERAZINE 5 MG/ML 2 ML VIAL IV STA (19:15)
[2016-04-20] MEDS ORDERED: DiphenhydrAMINE HCL 50 MG/ML VIAL IV STA (19:15)
[2016-04-20 20:05] VITALS: BP 143/75; PULSE 71; O2SAT 98
[2016-05-03] MEDS ORDERED: LXP10 PO (16:26)
== END 2016-04-20 20:08 | disposition home or self-care (01) ==
LOC: C.EDB 17:48 → C.EDA 20:08
DX: G43.909 Migraine, unspecified, not intractable, without status migrainosus (principal); I10 Essential (primary) hypertension; Z79.899 Other long term (current) drug therapy; Z88.2 Allergy status to sulfonamides; Z88.5 Allergy status to narcotic agent; Z88.8 Allergy status to other drugs, medicaments and biological substances; Z91.09 Other allergy status, other than to drugs and biological substances; Z83.3 Family history of diabetes mellitus; Z82.49 Family history of ischemic heart disease and other diseases of the circulatory system

== ENCOUNTER 2016-05-03 17:34 | Emergency (ER) | payer BC, OTHER ==
[~2016-05-03] VITALS: Ht 157.5 cm; Wt 93.9 kg
[~2016-05-03 17:34] MED LIST changes: -CARI350T27 PO; +LXP10 PO; +[UNRECOGNIZED DRUG - OTHER] PO
[2016-05-03 17:47] VITALS: Ht 157.5 cm; Wt 93.9 kg
[2016-05-03] MEDS ORDERED: SODIUM CHLORIDE 0.9% 1000ML 1,000 ML IV STA (19:20)
[2016-05-03] MEDS ORDERED: PROCHLORPERAZINE 5 MG/ML 2 ML VIAL IV STA (19:20)
[2016-05-03] MEDS ORDERED: DiphenhydrAMINE HCL 50 MG/ML VIAL IV STA (19:20)
[2016-05-03] MEDS ORDERED: KETOROLAC TROMETHAMINE 30 MG/ML VIAL IV STA (19:20)
[2016-05-03] MEDS ORDERED: CARI350T PO (19:45)
[2016-05-03] MEDS ORDERED: IMD/2 PO (20:04)
[2016-05-03 20:43] VITALS: BP 138/87; PULSE 77; TEMP 36.9; O2SAT 99
[2016-05-03] MEDS ORDERED: PROP160C PO (21:35)
[2016-05-03] MEDS ORDERED: AMIT75TA2 PO (23:36)
[2016-05-03] MEDS ORDERED: LEVO175T3 PO (23:36)
--- NOTE | 2016-05-04 01:31 | EMERGENCY ROOM VISIT NOTE ---
History Report prepared by Paula: Osmel Chowdhury Under the Supervision of: Dr. Maksim Bhatti D.O. First contact with patient: 19:10 Chief Complaint: HEADACHE Stated Complaint: MIGRAINE History of Present Illness The patient is a 50 year old female who presents to the Emergency Room with complaints of a worsening left sided headache beginning this morning. She has a history of migraines and states that her current symptoms feel similar. She states that she typically has a migraines every 3 or 4 days. The patient also complains of nausea, runny nose, and a non-productive cough. She estimates that her runny nose has persisted for about a week. She notes the migraine is unchanged in anyway from her typical migraines. Headache came on gradually and progressively worsened. She declines any weakness or numbness in any extremities. Pt denies change in vision, fevers, chest pain, shortness of breath, vomiting, diarrhea, sore-throat, abnormal vaginal discharge, pain with urination, and melena. Source of History: patient Onset: This morning Position: head Timing: worsening Associated Symptoms: + cough, + nausea, No SOB, No chest pain, No diarrhea, No fevers, No melena, No numbness, No sorethroat, No vomiting, No weakness Note: The patient denies any changes in vision or abnormal vaginal discharge. She also complains of a runny nose. Review of Systems See HPI for pertinent positives & negatives. A total of 10 systems reviewed and were otherwise negative. Past Medical & Surgical Medical Problems: (1) HTN (hypertension) (2) Migraine Family History Diabetes mellitus Heart disease Hypertension Social History Smoking Status: Never Smoker Drug Use: none Marital Status: Housing Status: lives with family Occupation Status: employed Current/Historical Medications Scheduled Amitriptyline Hcl (Elavil), 75 MG PO HS Carisoprodol (Soma), 350 MG PO QID Escitalopram Oxalate (Escitalopram Oxalate), 10 MG PO DAILY Levothyroxine Sodium (Levothyroxine Sodium), 175 MCG PO DAILY Propranolol Hcl (Propranolol Hcl Er), 160 MG PO QAM Scheduled PRN Loperamide Hcl (Imodium), 2 MG PO UD PRN for Diarrhea Allergies Coded Allergies: Paroxetine (Verified Allergy, Intermediate, nauseous, 04/20/16) Butorphanol (Verified Allergy, Unknown, nauseous, 04/20/16) Cortisone (Verified Allergy, Unknown, HIVES,facial swelling, 04/20/16) Sulfa Drugs (Verified Allergy, Unknown, 04/20/16) Morphine (Verified Adverse Reaction, Mild, nauesous, 04/20/16) Iodine (Verified Adverse Reaction, Unknown, itch, 04/20/16) Physical Exam Vital Signs Date Time Temp Pulse Resp B/P Pulse Ox O2 Delivery O2 Flow Rate FiO2 05/03/16 20:43 36.9 77 18 138/87 99 05/03/16 20:04 75 19 121/73 99 Room Air 05/03/16 17:47 36.9 85 18 145/77 100 Room Air Physical Exam GENERAL: Ambulating around the room, alert, well appearing, well nourished, no distress, non-toxic EYE EXAM: normal conjunctiva, PERRL and EOM's intact OROPHARYNX: no exudate, no erythema, lips, buccal mucosa, and tongue normal and mucous membranes are moist NECK: supple, no nuchal rigidity, no adenopathy, non-tender LUNGS: Clear to auscultation. Normal chest wall mechanics HEART: no murmurs, S1 normal and S2 normal ABDOMEN: abdomen soft, non-tender, normo-active bowel sounds, no masses, no rebound or guarding. BACK: Back is symmetrical on inspection and there is no deformity, no midline tenderness, no CVA tenderness. SKIN: no rashes and no bruising UPPER EXTREMITIES: upper extremities are grossly normal. LOWER EXTREMITIES: No pitting edema. NEURO EXAM: Normal sensorium, cranial nerves II-XII intact, normal speech, no weakness of arms, no weakness of legs. No drift. Finger to nose intact. Gross sensation intact. Medical Decision & Procedures Medications Administered Medications (Trade) Dose Ordered Sig/Sandra Route Start Time Stop Time Status Last Admin Dose Admin Prochlorperazine Edisylate (Compazine Inj) 10 mg NOW STAT IV 05/03/16 19:20 05/03/16 19:22 DC 05/03/16 19:40 10 MG Diphenhydramine HCl (Benadryl Inj) 50 mg NOW STAT IV 05/03/16 19:20 05/03/16 19:22 DC 05/03/16 19:40 50 MG Ketorolac Tromethamine 30 mg 30 mg NOW STAT IV 05/03/16 19:20 05/03/16 19:22 DC 05/03/16 19:40 30 MG Sodium Chloride (Nss 1000ml) 1,000 ml @ 999 mls/hr Q1H1M STAT IV 05/03/16 19:20 05/03/16 20:20 DC 05/03/16 19:20 999 MLS/HR ED Course ED COURSE: Vital signs were reviewed and appeared normal. The patients medical record was reviewed The above diagnostic studies were performed and reviewed. ED treatments and interventions as stated above. 1911: The patient was evaluated in room A11. A complete history and physical examination was performed. 1919: Ordered Sodium Chloride 1000 ml @ 999 mls/hr IV, Toradol Inj 30 mg IV, Benadryl Inj 50 mg IV, Compazine Inj 10 mg IV. 2012: Upon reevaluation, the patient is resting comfortably. Her symptoms have improved significantly. I discussed my findings with the patient and she understands and agrees with the treatment plan. Based on the patients age, coexisting illnesses, exam and lab findings the decision to treat as an outpatient was made. I instructed her not drive or operate heavy machinery for the next 12 hours. The patient remained stable while under my care. The patient appeared well at the time of discharge. Medical Decision Differential Diagnosis includes but is not limited to headache, tension headache , cluster headache, migraine, subarachnoid hemorrhage, meningitis, mass, central venous thrombus, concussion, trauma and epidural/subdural hemorrhage. Patient is a 50-year-old female who presents the ER for a headache. She notes that this is consistent with her previous migraines. It is unchanged in anyway she performed from her typical migraine. No weakness or numbness in her arms or legs. No change in vision. No fevers. No stiff neck. On exam no signs of meningitis or encephalitis. Vitals are unremarkable. She is completely neurologically intact. She was given IV Toradol, Compazine, Benadryl and fluids. She has significant improvement of her symptoms. She was discharged to follow-up with her primary care doctor and instructed not to drive tonight. Discussed with Pt concerning signs and symptoms to watch out for. Pt was instructed to follow up with their PCP and discussed with the patient their option to return to the ED at anytime for persistent or worsening symptoms. The appropriate anticipatory guidance and out-patient management, including indications for return to the emergency department, were explained at length to the patient and understood. Impression Primary Impression: Cephalgia Scribe Attestation The scribe's documentation has been prepared under my direction and personally reviewed by me in its entirety. I confirm that the note above accurately reflects all work, treatment, procedures, and medical decision making performed by me. Departure Information Dispostion Home / Self-Care Referrals Sangeeta Tejeda M.D. (PCP) Forms HOME CARE DOCUMENTATION FORM, IMPORTANT VISIT INFORMATION Patient Instructions Headache Pain, My [facility] Additional Instructions Please follow up with your primary care doctor with in the next 24 hours. Any worsening of your symptoms, please return to the ED immediately. This includes fevers greater than 100.3, weakness or numbness in your arms or legs, passing out, worsening headache, change in vision, or any other concerning signs or symptoms from your standpoint. Please do not drink alcohol, drive, operate heavy machinery for the next 12 hours. Problem Qualifiers Primary Impression: Cephalgia Headache type: unspecified Headache chronicity pattern: acute headache Intractability: not intractable Qualified Codes: R51 - Headache
== END 2016-05-03 20:45 | disposition home or self-care (01) ==
LOC: C.EDB 17:36 → C.EDA 20:45
DX: R51 Headache (principal); I10 Essential (primary) hypertension; Z88.2 Allergy status to sulfonamides; Z88.5 Allergy status to narcotic agent; Z91.041 Radiographic dye allergy status; Z83.3 Family history of diabetes mellitus; Z82.49 Family history of ischemic heart disease and other diseases of the circulatory system

== ENCOUNTER 2016-06-07 16:17 | Emergency (ER) | payer BC, OTHER ==
[~2016-06-07] VITALS: Ht 157.5 cm; Wt 93.0 kg
[~2016-06-07 16:17] MED LIST changes: +AMIT75TA2 PO; +CARI350T PO; +IMD/2 PO; +LEVO175T3 PO; -ONDA4TAB10 SL; +PROP160C PO; -[UNRECOGNIZED DRUG - OTHER] PO
[2016-06-07 16:29] VITALS: TEMP 36.4; Ht 157.5 cm; Wt 93.0 kg
[2016-06-07] MEDS ORDERED: KETOROLAC TROMETHAMINE 30 MG/ML VIAL IV STA (16:49)
[2016-06-07] MEDS ORDERED: DiphenhydrAMINE HCL 50 MG/ML VIAL IV STA (16:49)
[2016-06-07] MEDS ORDERED: PROMETHAZINE HCL INJ 25 MG in SODIUM CHLORIDE 0.9% 50ML 50 ML IV STA (16:49)
[2016-06-07] MEDS ORDERED: SODIUM CHLORIDE 0.9% 1000ML 1,000 ML IV STA (16:49)
--- NOTE | 2016-06-07 16:51 | EMERGENCY ROOM VISIT NOTE ---
History Report prepared by Paula: Jewell Martinez Under the Supervision of: Dr. Patel Fleming M.D. First contact with patient: 16:34 Chief Complaint: HEADACHE Stated Complaint: MIGRAINE AND RASH ON NECK History of Present Illness The patient is a 50 year old female who presents to the Emergency Room with complaints of a persistent headache starting 3 days ago. She has a history of migraines, but her current headache is present in the right back side of her head unlike her migraines which present behind her eyes. She took soma at 1100 this morning to no significant relief. She reports nausea. She also has a rash which mahmood on the sides of her neck and her left arm. She applied cortisone to the rash to no relief. She also took Benadryl last night which did not help. She denies any changes in detergents or new backpacks or purses. She does not wear necklaces. She denies any history of diabetes. She notes that she has an allergy to compazine which causes her terrible dreams and IM medications do not work for her. Source of History: patient Onset: 3 days ago Position: head Quality: ache Timing: other (persistent) Associated Symptoms: + nausea, + rash Review of Systems See HPI for pertinent positives & negatives. A total of 10 systems reviewed and were otherwise negative. Past Medical & Surgical Medical Problems: (1) HTN (hypertension) (2) Migraine Family History Diabetes mellitus Heart disease Hypertension Social History Smoking Status: Never Smoker Drug Use: none Marital Status: Housing Status: lives with family Occupation Status: employed Current/Historical Medications Scheduled Amitriptyline Hcl (Elavil), 75 MG PO HS Carisoprodol (Soma), 350 MG PO QID Escitalopram Oxalate (Lexapro), 20 MG PO QAM Levothyroxine Sodium (Levothyroxine Sodium), 175 MCG PO DAILY Propranolol Hcl (Propranolol Hcl Er), 160 MG PO QAM Scheduled PRN Clonazepam (Klonopin), 1 MG PO BID PRN for Anxiety/Agitation Loperamide Hcl (Imodium), 2 MG PO UD PRN for Diarrhea Allergies Coded Allergies: Paroxetine (Verified Allergy, Intermediate, nauseous, 06/07/16) Butorphanol (Verified Allergy, Unknown, nauseous, 06/07/16) Cortisone (Verified Allergy, Unknown, HIVES,facial swelling, 06/07/16) Sulfa Drugs (Verified Allergy, Unknown, 06/07/16) Morphine (Verified Adverse Reaction, Mild, nauesous, 06/07/16) Iodine (Verified Adverse Reaction, Unknown, itch, 06/07/16) Physical Exam Vital Signs Date Time Temp Pulse Resp B/P Pulse Ox O2 Delivery O2 Flow Rate FiO2 06/07/16 19:22 88 18 154/88 100 06/07/16 18:27 81 18 149/82 98 Room Air 06/07/16 16:29 36.4 87 16 152/86 95 Room Air Physical Exam GENERAL: Patient is well appearing and in mild distress. HEAD: No acute trauma, normocephalic atraumatic ENT: Mucous membranes moist, no nasal congestion. EYES: Equal/Reactive Bilaterally, No scleral icterus, Normal ROM NECK: No nuchal rigidity, no meningismus, trachea is midline, full ROM LUNGS: No dyspnea. Clear to auscultation and equal bilaterally. No wheeze, no rhonchi. HEART: Regular rate and rhythm. No murmurs, rubs, gallops appreciated. ABDOMEN: Soft, nontender, bowel sounds positive, no masses appreciated, no peritonitis. BACK: No midline tenderness, no CVA tenderness EXTREMITIES: Normal motion all extremities, no cyanosis, no edema. NEUROLOGIC: Awake, Alert, Oriented, no acute motor or sensory deficits, no focal weakness, cranial nerves grossly intact. SKIN: Dry skin bilateral base of neck, no jaundice, no diaphoresis. Medical Decision & Procedures Medications Administered Medications (Trade) Dose Ordered Sig/Sandra Route Start Time Stop Time Status Last Admin Dose Admin Sodium Chloride (Nss 1000ml) 1,000 ml @ 999 mls/hr Q1H1M STAT IV 06/07/16 16:49 06/07/16 17:49 DC 06/07/16 17:00 999 MLS/HR Ketorolac Tromethamine (Toradol Inj) 30 mg NOW STAT IV 06/07/16 16:49 06/07/16 16:50 DC 06/07/16 17:00 30 MG Diphenhydramine HCl 50 mg 50 mg NOW STAT IV 06/07/16 16:49 06/07/16 16:50 DC 06/07/16 16:59 50 MG Promethazine HCl/ Sodium Chloride (Phenergan Inj/ Nss 50ml) 51 ml @ 204 mls/hr NOW STAT IV 06/07/16 16:49 06/07/16 17:03 DC 06/07/16 17:07 204 MLS/HR Lorazepam (Ativan Inj) 1 mg NOW STAT IV 06/07/16 18:03 06/07/16 18:04 DC 06/07/16 18:25 1 MG Fentanyl Citrate (Fentanyl Inj) 50 mcg NOW STAT IV 06/07/16 18:40 06/07/16 18:41 DC 06/07/16 18:55 50 MCG ECG Indication: palpitations Rate (beats per minute): 84 Rhythm: normal sinus Findings: no acute ischemic change, no ectopy ED Course 163: The patient was evaluated in room A3. A complete history and physical exam was performed. 164: Promethazine HCl 25 mg/Sodium Chloride 51 ml @ 204 mls/hr IV, Benadryl Inj 50 mg IV, Toradol Inj 30 mg IV, NSS 1000 ml @ 999 mls/hr IV. 180: I reevaluated the patient. Her headache is improving. She is now having heart palpitations and feel anxious. 180: Lorazepam 1 mg IV. 1837: I reevaluated the patient. She is frustrated that I will not give her Dilaudid. 1839: Fentanyl Inj 50 mcg IV. 1909: I reevaluated the patient. I discussed results and discharge instructions : she verbalized understanding and agreement. The patient is ready for discharge. 1912: I have asked case management to talk to pain management for the patient and talk to her PCP. Medical Decision Differential: Headache, Migraine, Cluster Headache, Seizure, Meningitis, Sinusitis, CO exposure, ICH/SAH, Infectious, Tumor, Sinus Thrombosis, Arterial Dissection, amongst other pathologies entertained. 50 yr old female with headache consistent with her typical migraine though this is more stress type headache for her. Ongoing x 3 days. No evidence meningitis and no symptoms of dissection. She was given above though still stating headache thus given small dose fentanyl. I do not feel that continuing Dilaudid IV every time she arrives is advisable in this patient given how aggressively she is requesting it. I do want to treat her pain but I do not feel long acting narcotics are the solution, and even the small dose of fentanyl I am not feeling is advisable per Neurology guidelines. She admits she has left practice of at least 7 neurologists and does not have one. She states her PCP says she should come to ED for treatment with pain medications. She refuses compazine which seems to have worked last time. She has nonspecific dermatitis of lower lateral neck and left elbow without any clear findings and is not cellulitis, zoster, etc. Advised PCP follow up about all of this. Requests Case management contact PCP to discuss pain control management. Impression Primary Impression: Headache Additional Impression: Dermatitis Scribe Attestation The scribe's documentation has been prepared under my direction and personally reviewed by me in its entirety. I confirm that the note above accurately reflects all work, treatment, procedures, and medical decision making performed by me. Departure Information Dispostion Home / Self-Care Referrals Sangeeta Tejeda M.D. (PCP) Patient Instructions ED Headache Migraine, [facility] Problem Qualifiers Primary Impression: Headache Headache type: unspecified Headache chronicity pattern: acute headache Intractability: not intractable Qualified Codes: R51 - Headache
[2016-06-07] MEDS ORDERED: CLON1TAB3 PO (17:08)
[2016-06-07] MEDS ORDERED: ESCI1TAB10 PO (17:08)
[2016-06-07] MEDS ORDERED: LORAZEPAM 2 MG/ML 1 ML VIAL IV STA (18:03)
[2016-06-07] MEDS ORDERED: FENTANYL CITRATE INJ 50 MCG/1 ML 2 ML VIAL IV STA (18:40)
[2016-06-07 19:22] VITALS: BP 154/88; PULSE 88; O2SAT 100
== END 2016-06-07 19:23 | disposition home or self-care (01) ==
LOC: C.EDB 16:18 → C.EDA 19:23
DX: R51 Headache (principal); L30.9 Dermatitis, unspecified; I10 Essential (primary) hypertension; Z83.3 Family history of diabetes mellitus; Z82.49 Family history of ischemic heart disease and other diseases of the circulatory system

== ENCOUNTER 2016-07-18 12:08 | Emergency (ER) | payer BC ==
[~2016-07-18] VITALS: Ht 157.5 cm; Wt 94.9 kg
[~2016-07-18 12:08] MED LIST changes: +CLON1TAB3 PO; +ESCI1TAB10 PO; -LXP10 PO
[2016-07-18 12:12] VITALS: TEMP 37; Ht 157.5 cm; Wt 94.9 kg
[2016-07-18] MEDS ORDERED: DiphenhydrAMINE HCL 50 MG/ML VIAL IV STA (12:33)
[2016-07-18] MEDS ORDERED: KETOROLAC TROMETHAMINE 30 MG/ML VIAL IV STA (12:33)
[2016-07-18] MEDS ORDERED: SODIUM CHLORIDE 0.9% 1000ML 2,000 ML IV STA (12:33)
[2016-07-18] MEDS ORDERED: PROCHLORPERAZINE 5 MG/ML 2 ML VIAL IV STA (12:33)
[2016-07-18 14:30] VITALS: BP 150/82; PULSE 93; O2SAT 100
--- NOTE | 2016-07-18 20:03 | EMERGENCY ROOM VISIT NOTE ---
History Report prepared by Paula: Daisy Reynolds Under the Supervision of: Dr. Maksim Bhatti D.O. First contact with patient: 12:18 Chief Complaint: HEADACHE Stated Complaint: MIGRAINE, DIZZY History of Present Illness The patient is a 50 year old female who presents to the Emergency Room with complaints of a constant headache that started 2 days ago. The headache starts behind her right eye and radiates around her head. The patient states that the headache has been unchanged since it started 2 days ago. The patient has a history of migraines and the headache that she is experiencing currently is mostly consistent with her typical migraines. She states that her migraines are typically behind one or both of her eyes and does not radiate around her head. The patient is also experiencing lightheadedness that is more severe with this headache than it usually is with her migraines. She states that the room is not spinning. She is also experiencing nausea. The patient is also experiencing ringing in her ears that is louder whenever she has a migraine. She states that the ringing is unchanged from what she experiences normally. The patient denies fevers greater than 100.4, ear pain, neck stiffness, vomiting, weakness or numbness of her arms or legs. The patient adds that they recommended seeing pain management when she was seen in the ED last time for a migraine. The patient adds that her left eye is twitching, but denies any changes in vision. Source of History: patient Onset: 2 days ago Position: head Quality: other (headache) Timing: constant Associated Symptoms: + nausea, No fevers, No vomiting, No weakness, No numbness Note: lightheadedness, twitching of left eye, no visual changes, no ear pain, no neck stiffness Review of Systems See HPI for pertinent positives & negatives. A total of 10 systems reviewed and were otherwise negative. Past Medical & Surgical Medical Problems: (1) HTN (hypertension) (2) Migraine Family History Diabetes mellitus Heart disease Hypertension Social History Smoking Status: Never Smoker Drug Use: none Marital Status: Housing Status: lives with family Occupation Status: employed Current/Historical Medications Scheduled Amitriptyline Hcl (Elavil), 75 MG PO HS Carisoprodol (Soma), 350 MG PO QID Escitalopram Oxalate (Lexapro), 20 MG PO QAM Levothyroxine Sodium (Levothyroxine Sodium), 175 MCG PO DAILY Propranolol Hcl (Propranolol Hcl Er), 160 MG PO QAM Scheduled PRN Clonazepam (Klonopin), 1 MG PO BID PRN for Anxiety/Agitation Loperamide Hcl (Imodium), 2 MG PO UD PRN for Diarrhea Allergies Coded Allergies: Paroxetine (Verified Allergy, Intermediate, nauseous, 07/18/16) Butorphanol (Verified Allergy, Unknown, nauseous, 07/18/16) Cortisone (Verified Allergy, Unknown, HIVES,facial swelling, 07/18/16) Sulfa Drugs (Verified Allergy, Unknown, 07/18/16) Morphine (Verified Adverse Reaction, Mild, nauesous, 07/18/16) Iodine (Verified Adverse Reaction, Unknown, itch, 07/18/16) Physical Exam Vital Signs Date Time Temp Pulse Resp B/P (MAP) Pulse Ox O2 Delivery O2 Flow Rate FiO2 07/18/16 14:30 93 18 150/82 100 07/18/16 13:11 95 20 160/86 98 Room Air 07/18/16 12:12 37.0 96 20 164/86 96 Room Air Physical Exam GENERAL: alert, sitting up in bed, well appearing, well nourished, no distress, non-toxic EYE EXAM: normal conjunctiva, PERRL and EOM's intact OROPHARYNX: no exudate, no erythema, lips, buccal mucosa, and tongue normal and mucous membranes are moist NECK: supple, no nuchal rigidity, no adenopathy, non-tender LUNGS: Clear to auscultation. Normal chest wall mechanics HEART: no murmurs, S1 normal and S2 normal ABDOMEN: abdomen soft, non-tender, normo-active bowel sounds, no masses, no rebound or guarding. BACK: Back is symmetrical on inspection and there is no deformity, no midline tenderness, no CVA tenderness. SKIN: no rashes and no bruising UPPER EXTREMITIES: upper extremities are grossly normal. LOWER EXTREMITIES: No pitting edema. NEURO EXAM: Normal sensorium, cranial nerves II-XII intact, normal speech, no weakness of arms, no weakness of legs. No drift. Finger to nose intact. Gross sensation intact. Rapid alternating movements of the upper extremities intact bilaterally. Medical Decision & Procedures Medications Administered Medications (Trade) Dose Ordered Sig/Sandra Route Start Time Stop Time Status Last Admin Dose Admin Sodium Chloride 2,000 ml @ 999 mls/hr Q2H1M STAT IV 07/18/16 12:33 07/18/16 14:33 DC 07/18/16 13:03 999 MLS/HR Diphenhydramine HCl (Benadryl Inj) 50 mg NOW STAT IV 07/18/16 12:33 07/18/16 12:34 DC 07/18/16 13:03 50 MG Ketorolac Tromethamine (Toradol Inj) 30 mg NOW STAT IV 07/18/16 12:33 07/18/16 12:34 DC 07/18/16 13:03 30 MG Prochlorperazine Edisylate (Compazine Inj) 10 mg NOW STAT IV 07/18/16 12:33 07/18/16 12:34 DC 07/18/16 13:03 10 MG ED Course ED COURSE: Vital signs were reviewed and showed hypertension. The patients medical record was reviewed The above diagnostic studies were performed and reviewed. ED treatments and interventions as stated above. 1225: The patient was evaluated in room C3. A complete history and physical examination was performed. 1233: Ordered Compazine Inj 10 mg IV, Toradol Inj 30 mg IV, Benadryl Inj 50 mg IV, Sodium Chloride 2000 ml @ 999 mls/hr IV 1358: Upon reevaluation, the patient is doing well. She ambulated without experiencing any lightheadedness. I discussed my findings with the patient and she understands and agrees with the treatment plan. Based on the patients age, coexisting illnesses, exam and lab findings the decision to treat as an outpatient was made. The patient remained stable while under my care. The patient appeared well at the time of discharge. Medical Decision Differential Diagnosis includes but is not limited to headache, tension headache , cluster headache, migraine, subarachnoid hemorrhage, meningitis, mass, central venous thrombus, concussion, trauma and epidural/subdural hemorrhage. Medication Reconciliation: I attest that I have personally reviewed the patient' s current medication list. Blood pressure screening: Patient was found to have an elevated blood pressure and was referred to their primary doctor for recheck and further treatment. Patient is a 50-year-old female who presents the ER for a headache which started Monday and came on gradually. No fevers. No signs of meningitis or encephalitis on exam. It is behind her right eye. She does have nausea. She notes that she does feel lightheaded. This is very consistent with her previous headaches/migraines. Her neurologic exam is completely intact. She is given IV fluids, Benadryl, Toradol and Compazine. She had significant improvement of her symptoms per she is discharged follow-up with her primary care doctor. Discussed with Pt concerning signs and symptoms to watch out for. Pt was instructed to follow up with their PCP and discussed with the patient their option to return to the ED at anytime for persistent or worsening symptoms. The appropriate anticipatory guidance and out-patient management, including indications for return to the emergency department, were explained at length to the patient and understood. Impression Primary Impression: Cephalgia Scribe Attestation The scribe's documentation has been prepared under my direction and personally reviewed by me in its entirety. I confirm that the note above accurately reflects all work, treatment, procedures, and medical decision making performed by me. Departure Information Dispostion Home / Self-Care Referrals Sangeeta Tejeda M.D. (PCP) Forms HOME CARE DOCUMENTATION FORM, IMPORTANT VISIT INFORMATION Patient Instructions Headache Pain, [facility] Additional Instructions Please follow up with your primary care doctor with in the next 24 hours. Any worsening of your symptoms, please return to the ED immediately. This includes any weakness or numbness in arms legs, change in vision, worsening headache, fevers, stiff neck, or any other concerning signs or symptoms from your standpoint. Please do not drive, work, operate heavy machinery for the next 12 hours. Problem Qualifiers Primary Impression: Cephalgia Headache type: unspecified Headache chronicity pattern: acute headache Intractability: not intractable Qualified Codes: R51 - Headache
== END 2016-07-18 14:30 | disposition home or self-care (01) ==
LOC: C.EDB 12:10 → C.EDC 14:30
DX: R51 Headache (principal); I10 Essential (primary) hypertension; Z83.3 Family history of diabetes mellitus; Z82.49 Family history of ischemic heart disease and other diseases of the circulatory system

== ENCOUNTER 2016-12-26 13:02 | Emergency (ER) | payer BC ==
[~2016-12-26] VITALS: Ht 157.5 cm; Wt 88.5 kg
[2016-12-26 13:05] VITALS: Ht 157.5 cm; Wt 88.5 kg
[2016-12-26] MEDS ORDERED: KETOROLAC TROMETHAMINE 30 MG/ML VIAL IV STA (13:19)
[2016-12-26] MEDS ORDERED: DiphenhydrAMINE HCL 50 MG/ML VIAL IV STA (13:19)
[2016-12-26] MEDS ORDERED: PROCHLORPERAZINE 5 MG/ML 2 ML VIAL IV STA (13:19)
[2016-12-26 13:45] LABS: BASO % 0.2 %; BASO ABS # 0.01 K/uL (0-0.2); COMPLETE YES; EOS % 1.5 %; HEMATOCRIT 37.6 % (37-47); IG% 0.2 %; LYMPH % 33.7 %; LYMPH ABS # 1.81 K/uL (1.2-3.4); MEAN CELL VOLUME 91.7 fL (80-100); MEAN CORPUSCULAR HEMOGLOBIN 32.4 pg (25-34); MEAN CORPUSCULAR HGB CONC 35.4 g/dl (32-36); MEAN PLATELET VOLUME 9.1 fL (7.4-10.4); NEUT % 56.4 %; PLATELET COUNT 292 K/uL (130-400); WHITE BLOOD COUNT 5.37 K/uL (4.8-10.8)
--- NOTE | 2016-12-26 13:53 | EMERGENCY ROOM VISIT NOTE ---
History First contact with patient: 13:08 Chief Complaint: HEADACHE Stated Complaint: MIGRAINE, FEELS LIKE GOING TO PASS OUT History of Present Illness The patient is a 51 year old female who presents to the Emergency Room with complaints of a migraine headache. The patient states that she has a history of migraines. She has had a headache which started 3 days ago. Headache is located behind her eyes and radiates into the back of her head and neck. She states she has had dizziness since yesterday which she describes as the room spinning. She has been nauseous but denies any vomiting. She reports the fingers of both of her hands have been tingling. She states that the headache is similar to her typical migraines except for the dizziness and the tingling in her fingers. She rates her discomfort a 10/10. She took Fioricet and Flexeril without relief. She currently does not have a neurologist and sees pain management for her migraines. She denies any recent illness, fevers, blurred vision, slurred speech, numbness/weakness or confusion. Review of Systems A complete 10 point review of systems was reviewed with the patient with pertinent positives and negatives as per history of present illness. All else were negative. Past Medical/Surgical History Medical Problems: (1) HTN (hypertension) (2) Migraine Family History Diabetes mellitus Heart disease Hypertension Social History Smoking Status: Never Smoker Drug Use: none Marital Status: Housing Status: lives with family Occupation Status: employed Current/Historical Medications Scheduled Amitriptyline Hcl (Elavil), 75 MG PO HS Cyclobenzaprine Hcl (Flexeril), 5 MG PO BID Diclofenac Sod (Voltaren), 50 MG PO BID Escitalopram Oxalate (Lexapro), 20 MG PO QAM Levothyroxine Sodium (Levothyroxine Sodium), 175 MCG PO DAILY Propranolol Hcl (Propranolol Hcl Er), 160 MG PO QAM Scheduled PRN Acetamin/Butalbital/Caffeine (Fioricet), 1 TAB PO DIRECTED PRN for Headache Physical Exam Vital Signs Date Time Temp Pulse Resp B/P (MAP) Pulse Ox O2 Delivery O2 Flow Rate FiO2 12/26/16 15:46 74 16 137/79 100 12/26/16 14:10 68 12/26/16 14:08 36.5 68 16 162/94 96 Room Air 12/26/16 13:05 Room Air Physical Exam VITALS: Vitals are noted on the nurse's note and reviewed by myself. Vital signs stable. GENERAL: This is a 51-year-old female, in no acute distress, nondiaphoretic, well-developed well-nourished. HEAD: Normocephalic atraumatic. EARS: External auditory canals clear, tympanic membranes pearly jay without erythema or effusion bilaterally. EYES: Pupils equal round and reactive to light and accommodation. Extraocular movements intact. MOUTH: Mucous membranes moist. NECK: Supple without nuchal rigidity. No lymphadenopathy. No meningismus. HEART: Regular rate and rhythm without murmurs gallops or rubs. LUNGS: Clear to auscultation bilaterally without wheezes, rales or rhonchi. MUSCULOSKELETAL: Full range of motion throughout. Strength 5/5 throughout. NEURO: Patient was alert and oriented to person place and time. Normal sensation to light and sharp touch. No focal neurological deficits. Negative Romberg and pronator drift. Normal finger to nose testing. Medical Decision & Procedures ER Provider Diagnostic Interpretation: CT HEAD WITHOUT CONTRAST (CT) FINDINGS: No intra or extra-axial mass lesions are visualized. There is no CT evidence of acute cortical infarction. There is no evidence of midline shift. There is no acute hemorrhage. No calvarial fractures are visualized. There are minimal white matter hypodensities likely on a small vessel basis. There is no evidence of pathologic ventricular dilatation. There is no evidence of acute sinusitis IMPRESSION: No acute intracranial findings Laboratory Results 12/26/16 13:35 Red Blood Count 4.10, Mean Corpuscular Volume 91.7, Mean Corpuscular Hemoglobin 32.4, Mean Corpuscular Hemoglobin Concent 35.4, Mean Platelet Volume 9.1, Neutrophils (%) (Auto) 56.4, Lymphocytes (%) (Auto) 33.7, Monocytes (%) (Auto) 8.0, Eosinophils (%) (Auto) 1.5, Basophils (%) (Auto) 0.2, Neutrophils # (Auto) 3.03, Lymphocytes # (Auto) 1.81, Monocytes # (Auto) 0.43, Eosinophils # (Auto) 0.08, Basophils # (Auto) 0.01 12/26/16 13:35 Test 12/26/16 13:35 White Blood Count 5.37 K/uL (4.8-10.8) Red Blood Count 4.10 M/uL (4.2-5.4) Hemoglobin 13.3 g/dL (12.0-16.0) Hematocrit 37.6 % (37-47) Mean Corpuscular Volume 91.7 fL (80-100) Mean Corpuscular Hemoglobin 32.4 pg (25-34) Mean Corpuscular Hemoglobin Concent 35.4 g/dl (32-36) Platelet Count 292 K/uL (130-400) Mean Platelet Volume 9.1 fL (7.4-10.4) Neutrophils (%) (Auto) 56.4 % Lymphocytes (%) (Auto) 33.7 % Monocytes (%) (Auto) 8.0 % Eosinophils (%) (Auto) 1.5 % Basophils (%) (Auto) 0.2 % Neutrophils # (Auto) 3.03 K/uL (1.4-6.5) Lymphocytes # (Auto) 1.81 K/uL (1.2-3.4) Monocytes # (Auto) 0.43 K/uL (0.11-0.59) Eosinophils # (Auto) 0.08 K/uL (0-0.5) Basophils # (Auto) 0.01 K/uL (0-0.2) RDW Standard Deviation 40.9 fL (36.4-46.3) RDW Coefficient of Variation 12.1 % (11.5-14.5) Immature Granulocyte % (Auto) 0.2 % Immature Granulocyte # (Auto) 0.01 K/uL (0.00-0.02) Anion Gap 10.0 mmol/L (3-11) Est Creatinine Clear Calc Drug Dose 82.9 ml/min Estimated GFR () 94.6 Estimated GFR (Non- 81.6 BUN/Creatinine Ratio 12.2 (10-20) Calcium Level 9.8 mg/dl (8.5-10.1) Magnesium Level 2.3 mg/dl (1.8-2.4) Total Bilirubin 0.4 mg/dl (0.2-1) Aspartate Amino Transf (AST/SGOT) 28 U/L (15-37) Alanine Aminotransferase (ALT/SGPT) 31 U/L (12-78) Alkaline Phosphatase 162 U/L (45-117) Troponin I < 0.015 ng/ml (0-0.045) Total Protein 8.5 gm/dl (6.4-8.2) Albumin 4.2 gm/dl (3.4-5.0) Globulin 4.3 gm/dl (2.5-4.0) Albumin/Globulin Ratio 1.0 (0.9-2) Thyroid Stimulating Hormone (TSH) 2.890 uIu/ml (0.300-4.500) Medications Administered Medications (Trade) Dose Ordered Sig/Sandra Route Start Time Stop Time Status Last Admin Dose Admin Prochlorperazine Edisylate (Compazine Inj) 10 mg NOW STAT IV 12/26/16 13:19 12/26/16 13:21 DC 12/26/16 13:33 10 MG Diphenhydramine HCl (Benadryl Inj) 25 mg NOW STAT IV 12/26/16 13:19 12/26/16 13:21 DC 12/26/16 13:33 25 MG Ketorolac Tromethamine (Toradol Inj) 30 mg NOW STAT IV 12/26/16 13:19 12/26/16 13:21 DC 12/26/16 13:34 30 MG Lorazepam (Ativan Inj) 1 mg NOW STAT IV 12/26/16 14:25 12/26/16 14:27 DC 12/26/16 14:31 1 MG ED Course The patient was evaluated as above. Labs were drawn and IV access was obtained. Patient was medicated with Toradol, Compazine and Benadryl. Patient was reevaluated and reported some relief. She still has some residual headache and dizziness. Patient was treated with 1 mg Ativan IV. Patient was reevaluated and was sleeping when I entered the room. She states she feels much better and is ready for discharge. Discharge instructions were reviewed with the patient. The patient verbalized understanding of my assessment and treatment plan and was discharged home in good condition. Medical Decision The differential diagnosis includes acute intracranial bleed, meningitis, encephalitis, mass or mass effect, sinusitis, infection, tumor, headache, temporal arteritis and carbon monoxide exposure, and migraine. The patient is a 51-year-old female who presents today complaining of migraine headache. The above workup was performed as the patient stated that this was different in nature from her previous headaches. CT was unremarkable. Labs were unremarkable. Patient had resolution of her symptoms with the above treatment. I favor this is likely an atypical migraine. Neurological exam was intact. Patient was encouraged to follow-up with her primary care provider and to find a neurologist to follow up with regarding her migraines. The patient's case was reviewed with Dr. Jones, ED attending physician, who agreed with my assessment and treatment plan. Based on the patient's presentation and work up, I feel the patient is stable for outpatient treatment. The patient was educated to return to the emergency department for any worsening of their current condition or new/concerning symptoms. She will follow up with her PCP. Medication Reconcilliation Current Medication List: was personally reviewed by me Blood Pressure Screening Patient's blood pressure: Normal blood pressure Impression Primary Impression: Atypical migraine Departure Information Dispostion Home / Self-Care Condition GOOD Referrals Sangeeta Tejeda M.D. (PCP) Patient Instructions My [facility] Additional Instructions You have been treated in the Emergency Department for a Headache. You have received pain medicine in the emergency department which impairs your ability to operate a vehicle. It is illegal for you to drive after receiving these medicines. Continue your typical headache medications at home as needed. You should relax in a quiet, dark place for the rest of the day. Avoid any possible triggers including: cigarette smoke, caffeine, nicotine, chocolate, wine, beer, loud noises or music, or bright lights. You should schedule a follow-up appointment in 2-3 days with your Primary Care Provider or established Neurologist for further evaluation and treatment of your Headache. Return to the Emergency Department if your current symptoms worsen despite treatment course outlined above, or if you develop any of the following symptoms : intractable pain despite aforementioned treatment course, visual disturbances , loss of vision, unilateral weakness or facial drooping, slurring of speech, loss of coordination, or loss of consciousness.
[2016-12-26 14:02] LABS: ALT/SGPT 31 U/L (12-78); BLOOD UREA NITROGEN 10 mg/dl (7-18); BUN/CREATININE RATIO 12.2 (10-20); CALCIUM 9.8 mg/dl (8.5-10.1); CARBON DIOXIDE 26 mmol/L (21-32); CHLORIDE 102 mmol/L (98-107); CREATININE 0.83 mg/dl (0.60-1.20); GLUCOSE 93 mg/dl (70-99); MAGNESIUM 2.3 mg/dl (1.8-2.4); POTASSIUM 4.4 mmol/L (3.5-5.1); SODIUM 138 mmol/L (136-145)
--- NOTE | 2016-12-26 14:03 | DIAGNOSTIC IMAGING REPORT ---
CT HEAD WITHOUT CONTRAST (CT) CLINICAL HISTORY: headache, new onset dizziness COMPARISON STUDY: 02/29/2016 TECHNIQUE: Axial CT of the brain is performed from the vertex to the skull base. IV contrast was not administered for this examination. A dose lowering technique was utilized adhering to the principles of ALARA. CT DOSE: 638.56 mGycm FINDINGS: No intra or extra-axial mass lesions are visualized. There is no CT evidence of acute cortical infarction. There is no evidence of midline shift. There is no acute hemorrhage. No calvarial fractures are visualized. There are minimal white matter hypodensities likely on a small vessel basis. There is no evidence of pathologic ventricular dilatation. There is no evidence of acute sinusitis IMPRESSION: No acute intracranial findings Electronically signed by: Brenton Prieto M.D. 12/26/2016 2:02 PM Dictated Date/Time: 12/26/2016 2:01 PM
[2016-12-26 14:08] VITALS: TEMP 36.5
[2016-12-26 14:13] LABS: ALKALINE PHOSPHATASE 162 U/L (45-117); AST/SGOT 28 U/L (15-37)
[2016-12-26] MEDS ORDERED: LORAZEPAM 2 MG/ML 1 ML VIAL IV STA (14:25)
[2016-12-26] MEDS ORDERED: VLT/50 PO (14:54)
[2016-12-26] MEDS ORDERED: CYCL5TAB PO (14:54)
[2016-12-26] MEDS ORDERED: FRCT/ PO (14:55)
[2016-12-26 15:46] VITALS: BP 137/79; PULSE 74; O2SAT 100
== END 2016-12-26 15:47 | disposition home or self-care (01) ==
LOC: C.EDB 13:03 → C.EDC 15:47
DX: G43.809 Other migraine, not intractable, without status migrainosus (principal); I10 Essential (primary) hypertension; Z83.3 Family history of diabetes mellitus; Z82.49 Family history of ischemic heart disease and other diseases of the circulatory system; Z79.899 Other long term (current) drug therapy

== ENCOUNTER 2017-03-08 19:23 | Emergency (ER) | payer BC ==
[~2017-03-08] VITALS: Ht 157.5 cm; Wt 88.7 kg
[~2017-03-08 19:23] MED LIST changes: -AMIT75TA2 PO; -CARI350T PO; -CLON1TAB3 PO; +CYCL5TAB PO; +FRCT/ PO; -IMD/2 PO; -LEVO175T3 PO; -PROP160C PO; +VLT/50 PO
[2017-03-08 19:34] VITALS: TEMP 36.9; Ht 157.5 cm; Wt 88.7 kg
[2017-03-08] MEDS ORDERED: DiphenhydrAMINE HCL 50 MG/ML VIAL IV STA (21:26)
[2017-03-08] MEDS ORDERED: METOCLOPRAMIDE HCL INJ 5 MG/ML 2 ML VIAL IV STA (21:26)
[2017-03-08] MEDS ORDERED: KETOROLAC TROMETHAMINE 30 MG/ML VIAL IV STA (21:26)
[2017-03-08] MEDS ORDERED: ACETAMINOPHEN 500 MG TAB PO STA (21:26)
[2017-03-08 21:30] VITALS: O2SAT 100
[2017-03-08] MEDS ORDERED: DIPH25CA65 PO (21:31)
[2017-03-08] MEDS ORDERED: ZNF/4 PO (21:31)
[2017-03-08] MEDS ORDERED: BUTA1CAP18 PO (21:31)
[2017-03-08] MEDS ORDERED: RBX500 PO (21:31)
[2017-03-08] MEDS ORDERED: ATV/1 PO (21:31)
[2017-03-08] MEDS ORDERED: PROC1TAB5 PO (21:31)
--- NOTE | 2017-03-08 21:33 | EMERGENCY ROOM VISIT NOTE ---
History Report prepared by Paula: May Dutton Under the Supervision of: Dr. Baljeet Aparicio M.D. First contact with patient: 20:42 Chief Complaint: CHEST PAIN Stated Complaint: CHEST PAIN, DIZZINESS, MIGRAINE Nursing Triage Summary: atient with migraine for three days but also has chest pain with dizziness. states she aways has migraines and that her chest has been hurting since 1300 today discribed as a tightening that goes under the left breast and up into the jaw. she denies vomiting but nausea has been to the migraine. Patient states she has dizziness also that is worse with standing or lying flat it gets worse. in a sitting position it is best// she states she has some rining in the ears as well when standing History of Present Illness The patient is a 51 year old white female with a past medical history of migraines and HTN who presents to the ED with a cc of a constant headache for the past 3 days. The patient has a history of migraine headaches and states that this feels like her typical migraine. She tried taking her usual medications without any relief of her symptoms. She rates her current pain as a 7/10 in severity. Her pain is located on the left side of her head and into her left eye. She describes her pain as stabbing. She does note that she hit her head a couple of days ago on a cupboard. She denies LOC. The patient also started experiencing left sided chest pains earlier this afternoon. Her pain radiates into her left arm and into her right shoulder. She describes this pain as an ache. Pt denies any modifying factors. Positive nausea, hot flashes, and dizziness worse with changing positions. Negative shortness of breath, breast tenderness or discharge. No hx of blood clots. She denies any family history of NE under the age of 55. Pt denies recent prolonged travel. Pt does not take any blood thinners or oral contraceptives. Source of History: patient Onset: 3 days ago Position: head Symptom Intensity: 7/10 Quality: ache, stabbing Timing: constant Associated Symptoms: + chest pain, + nausea, No SOB Note: Pt notes hot flashes and dizziness worse with changing positions. Denies breast tenderness or discharge. Review of Systems See HPI for pertinent positives and negatives. A total of ten systems were reviewed and were otherwise negative. Past Medical & Surgical Medical Problems: (1) HTN (hypertension) (2) Migraine Family History Diabetes mellitus Heart disease Hypertension Social History Smoking Status: Never Smoker Smokeless Tobacco Use: No Alcohol Use: none Drug Use: none Marital Status: Housing Status: lives with family Occupation Status: employed Current/Historical Medications Scheduled Amitriptyline Hcl (Elavil), 75 MG PO HS Diclofenac Sod (Voltaren), 50 MG PO TID Escitalopram Oxalate (Lexapro), 20 MG PO QAM Levothyroxine Sodium (Levothyroxine Sodium), 175 MCG PO DAILY Lorazepam (Ativan), 1 MG PO UD Propranolol Hcl (Propranolol Hcl Er), 160 MG PO QAM Tizanidine (Tizanidine HCl), 4 MG PO TID Scheduled PRN Acetamin/Butalbital/Caffeine (Fioricet), 1 TAB PO DIRECTED PRN for Headache Veaxkorocw-Yusemzjsxcuxi-Fpnzb (Fioricet/Codeine), 1 CAP PO Q6 PRN for Migraine Diphenhydramine Hcl (Benadryl Allergy), 1-2 CAP PO Q6 PRN for Headache Methocarbamol (Methocarbamol), 500 MG PO BID PRN for DALLAS/NECK PAIN Prochlorperazine Maleate (Compazine), 10 MG PO Q6H PRN for Nausea or Vomiting Allergies Coded Allergies: Paroxetine (Verified Allergy, Intermediate, nauseous, 12/26/16) Butorphanol (Verified Allergy, Unknown, nauseous, 12/26/16) Cortisone (Verified Allergy, Unknown, HIVES,facial swelling, 12/26/16) Sulfa Drugs (Verified Allergy, Unknown, 12/26/16) Morphine (Verified Adverse Reaction, Mild, nauesous, 12/26/16) Iodine (Verified Adverse Reaction, Unknown, itch, 12/26/16) Physical Exam Vital Signs Date Time Temp Pulse Resp B/P (MAP) Pulse Ox O2 Delivery O2 Flow Rate FiO2 03/09/17 00:02 79 20 155/90 100 03/08/17 21:30 82 03/08/17 21:30 100 Room Air 03/08/17 21:14 79 20 167/99 100 Room Air 03/08/17 19:42 100 Room Air 03/08/17 19:34 36.9 85 20 184/96 100 Room Air Physical Exam GENERAL: Awake, alert, well-appearing, NAD HENT: Normocephalic, atraumatic. EYES: Normal conjunctiva. Sclera non-icteric. NECK: Supple. No nuchal rigidity. FROM. RESPIRATORY: CTAB, no rhonchi, wheezing, crackles CARDIAC: RRR, no MRG ABDOMEN: Soft, NTND, BS+ MSK: No reproducible chest wall TTP, no LE edema NEURO: CN 2-12 intact, 5/5 upper and lower extremity strength, no dysmetria, no drift, good finger to nose, no sensory deficits. SKIN: No rash or jaundice noted. Medical Decision & Procedures ER Provider Diagnostic Interpretation: Radiology results as stated below per my review and radiologist interpretation: SINGLE VIEW CHEST CLINICAL HISTORY: Atypical chest pain. FINDINGS: An AP, portable, upright chest radiograph is compared to study dated 05/26/2015 and correlated with chest CT dated 04/02/2014. The heart is top normal for projection. The mediastinal contour is within normal limits. The lungs and pleural spaces are clear. No pneumothorax is seen. The bony thorax is grossly intact. IMPRESSION: No active disease in the chest. Electronically signed by: Eran Kim M.D. 03/08/2017 9:51 PM Dictated Date/Time: 03/08/2017 9:50 PM Laboratory Results 03/08/17 21:38 Red Blood Count 3.90, Mean Corpuscular Volume 95.1, Mean Corpuscular Hemoglobin 32.8, Mean Corpuscular Hemoglobin Concent 34.5, Mean Platelet Volume 8.9, Neutrophils (%) (Auto) 50.2, Lymphocytes (%) (Auto) 40.8, Monocytes (%) (Auto) 5.9, Eosinophils (%) (Auto) 2.5, Basophils (%) (Auto) 0.3, Neutrophils # (Auto) 3.07, Lymphocytes # (Auto) 2.49, Monocytes # (Auto) 0.36, Eosinophils # (Auto) 0.15, Basophils # (Auto) 0.02 03/08/17 21:38 Test 03/08/17 00:00 03/08/17 21:38 Urine Color YELLOW Urine Appearance CLEAR (CLEAR) Urine pH 5.0 (4.5-7.5) Urine Specific Grass Range 1.020 (1.000-1.030) Urine Protein NEG (NEG) Urine Glucose (UA) NEG (NEG) Urine Ketones NEG (NEG) Urine Occult Blood NEG (NEG) Urine Nitrite NEG (NEG) Urine Bilirubin NEG (NEG) Urine Urobilinogen NEG (NEG) Urine Leukocyte Esterase MODERATE (NEG) Urine WBC (Auto) 10-30 /hpf (0-5) Urine RBC (Auto) 0-4 /hpf (0-4) Urine Hyaline Casts (Auto) 1-5 /lpf (0-5) Urine Epithelial Cells (Auto) >30 /lpf (0-5) Urine Bacteria (Auto) NEG (NEG) Urine Test NEG (NEG) White Blood Count 6.11 K/uL (4.8-10.8) Red Blood Count 3.90 M/uL (4.2-5.4) Hemoglobin 12.8 g/dL (12.0-16.0) Hematocrit 37.1 % (37-47) Mean Corpuscular Volume 95.1 fL (80-100) Mean Corpuscular Hemoglobin 32.8 pg (25-34) Mean Corpuscular Hemoglobin Concent 34.5 g/dl (32-36) Platelet Count 287 K/uL (130-400) Mean Platelet Volume 8.9 fL (7.4-10.4) Neutrophils (%) (Auto) 50.2 % Lymphocytes (%) (Auto) 40.8 % Monocytes (%) (Auto) 5.9 % Eosinophils (%) (Auto) 2.5 % Basophils (%) (Auto) 0.3 % Neutrophils # (Auto) 3.07 K/uL (1.4-6.5) Lymphocytes # (Auto) 2.49 K/uL (1.2-3.4) Monocytes # (Auto) 0.36 K/uL (0.11-0.59) Eosinophils # (Auto) 0.15 K/uL (0-0.5) Basophils # (Auto) 0.02 K/uL (0-0.2) RDW Standard Deviation 43.9 fL (36.4-46.3) RDW Coefficient of Variation 12.8 % (11.5-14.5) Immature Granulocyte % (Auto) 0.3 % Immature Granulocyte # (Auto) 0.02 K/uL (0.00-0.02) Prothrombin Time 9.9 SECONDS (9.0-12.0) Prothromb Time International Ratio 0.9 (0.9-1.1) Activated Partial Thromboplast Time 26.4 SECONDS (21.0-31.0) Partial Thromboplastin Ratio 1.0 Anion Gap 7.0 mmol/L (3-11) Est Creatinine Clear Calc Drug Dose 69.6 ml/min Estimated GFR () 76.5 Estimated GFR (Non- 66.0 BUN/Creatinine Ratio 16.3 (10-20) Calcium Level 9.6 mg/dl (8.5-10.1) Troponin I < 0.015 ng/ml (0-0.045) Laboratory results reviewed by me. Medications Administered Medications (Trade) Dose Ordered Sig/Sandra Route Start Time Stop Time Status Last Admin Dose Admin Metoclopramide HCl (Reglan Inj) 10 mg NOW STAT IV 03/08/17 21:26 03/08/17 21:28 DC 03/08/17 22:00 10 MG Ketorolac Tromethamine (Toradol Inj) 30 mg NOW STAT IV 03/08/17 21:26 03/08/17 21:28 DC 03/08/17 21:59 30 MG Acetaminophen (Tylenol Tab) 1,000 mg NOW STAT PO 03/08/17 21:26 03/08/17 21:28 DC 03/08/17 21:59 1,000 MG Diphenhydramine HCl (Benadryl Inj) 50 mg NOW STAT IV 03/08/17 21:26 03/08/17 21:28 DC 03/08/17 22:00 50 MG Sodium Chloride 250 ml @ 999 mls/hr Q16M STAT IV 03/08/17 22:29 03/08/17 22:44 DC 03/08/17 22:29 999 MLS/HR ECG Indication: chest pain Rate (beats per minute): 85 Rhythm: normal sinus Findings: T-wave inversion (AVL), other (normal intervals; normal axis) Change: Patient's electrocardiogram interpreted by me. ED Course 2116: The patient was evaluated in room B5. A complete history and physical exam was performed. 2226: Upon reevaluation the patient is still feeling slightly dizzy. 2: I reassessed the patient at this time. She is feeling better and resting comfortably. I discussed the results and treatment plan with the patient. I answered all pertaining questions that she had. She expressed understanding and verbalized agreement. The patient will be discharged home. Medical Decision Differential diagnosis: Etiologies such as migraine headache, meningitis, sinusitis, CO exposure, ICH, SAH, infection, tumor, headache, sinus thrombosis, arterial dissection, cardiac ischemia, aortic dissection, pulmonary embolism, pneumonia, pneumothorax, musculoskeletal, infections, pericarditis, myocarditis, esophageal rupture, gastrointestinal, as well as others were entertained. The patient is a 51 year old white female with a past medical history of migraines and HTN who presents to the ED with a cc of a constant headache for the past 3 days. Patient seen and evaluated at bedside. Patient w/ complaints of DALLAS described as typical migraine. Non-focal neuro exam. Patient w/ some L sided chest discomfort that did not radiate to arm but was associated w/ L arm pain. Not reproducible. Blood work, EKG and medications for migraine. Patient upon reassessment DALLAS resolved. Feels slightly dizzy, lightheaded. Given IVF. EKG non- ischemic and trop neg. CXR clear. Patient HEART score < 4, less likely ACS. No CT brain given normal neuro exam and typical migraine. PERC 1 given age and WELLs of 0, less likely PE. Patient feeling well and able to go home. Do not believe she needs further care in the hospital and can be safely d/c'ed to home. Patient informed of all findings. Agreeable w/ plan of care. Patient given f/u, d/c, and return instructions and d/c'ed to home. Medication Reconcilliation Current Medication List: was personally reviewed by me Blood Pressure Screening Patient's blood pressure: Elevated blood pressure Blood pressure disposition: Referred to PCP Impression Primary Impression: Migraine Additional Impression: Chest pain Scribe Attestation The scribe's documentation has been prepared under my direction and personally reviewed by me in its entirety. I confirm that the note above accurately reflects all work, treatment, procedures, and medical decision making performed by me. Departure Information Dispostion Home / Self-Care Referrals Sangeeta Tejeda M.D. (PCP) Patient Instructions Chest Pain - [facility], ED Headache Migraine, My [facility] Additional Instructions Please return to the emergency department if you have worsening or recurrent symptoms not amenable to at-home treatment. Please call for a follow-up appointment with her primary care physician. Please take your medications as prescribed. If you have other concerns and/or complaints please feel free to also call your primary care physician's office or return the ED for further evaluation, management, and treatment. You may take 600 mg Ibuprofen every 6 hours as needed for pain with food for no more than 2 consecutive days. You may take tylenol 1000 mg every 6 hours as needed for pain. You may take motrin and tylenol separately or at the same time. Take your medications as prescribed. You have been examined and treated today on an emergency basis only. This is not a substitute for, or an effort to provide, complete comprehensive medical care. It is impossible to recognize and treat all injuries or illnesses in a single emergency department visit. It is therefore important that you follow up closely with [facility], your PCP, and/or your specialist(s). Call as soon as possible for an appointment. Thank you for your time and consideration. I look forward to speaking with you again soon. Please don't hesitate to call us if you have any questions. Problem Qualifiers Primary Impression: Migraine Migraine type: unspecified Status migrainosus presence: without status migrainosus Intractability: not intractable Qualified Codes: G43.909 - Migraine, unspecified, not intractable, without status migrainosus Additional Impression: Chest pain Chest pain type: unspecified Qualified Codes: R07.9 - Chest pain, unspecified
[2017-03-08] MEDS ORDERED: PROP160C PO (21:35)
--- NOTE | 2017-03-08 21:53 | DIAGNOSTIC IMAGING REPORT ---
SINGLE VIEW CHEST CLINICAL HISTORY: Atypical chest pain. FINDINGS: An AP, portable, upright chest radiograph is compared to study dated 05/26/2015 and correlated with chest CT dated 04/02/2014. The heart is top normal for projection. The mediastinal contour is within normal limits. The lungs and pleural spaces are clear. No pneumothorax is seen. The bony thorax is grossly intact. IMPRESSION: No active disease in the chest. Electronically signed by: Eran Kim M.D. 03/08/2017 9:51 PM Dictated Date/Time: 03/08/2017 9:50 PM
[2017-03-08 22:05] LABS: BASO % 0.3 %; BASO ABS # 0.02 K/uL (0-0.2); EOS % 2.5 %; EOS ABS # 0.15 K/uL (0-0.5); HEMATOCRIT 37.1 % (37-47); HEMOGLOBIN 12.8 g/dL (12.0-16.0); IG# 0.02 K/uL (0.00-0.02); LYMPH % 40.8 %; LYMPH ABS # 2.49 K/uL (1.2-3.4); MEAN CELL VOLUME 95.1 fL (80-100); MEAN CORPUSCULAR HEMOGLOBIN 32.8 pg (25-34); MEAN CORPUSCULAR HGB CONC 34.5 g/dl (32-36); MEAN PLATELET VOLUME 8.9 fL (7.4-10.4); MONO % 5.9 %; MONO ABS # 0.36 K/uL (0.11-0.59); NEUT % 50.2 %; NEUT ABS # 3.07 K/uL (1.4-6.5); PLATELET COUNT 287 K/uL (130-400); RED CELL DISTRIBUTION WIDTH CV 12.8 % (11.5-14.5); RED CELL DISTRIBUTION WIDTH SD 43.9 fL (36.4-46.3); WHITE BLOOD COUNT 6.11 K/uL (4.8-10.8)
[2017-03-08 22:24] LABS: INR 0.9 (0.9-1.1); PTT PATIENT 26.4 SECONDS (21.0-31.0)
[2017-03-08 22:27] LABS: CALCIUM 9.6 mg/dl (8.5-10.1); CREATININE 0.99 mg/dl (0.60-1.20); POTASSIUM 3.6 mmol/L (3.5-5.1)
[2017-03-08] MEDS ORDERED: SODIUM CHLORIDE 0.9% 250ML 250 ML IV STA (22:29)
[2017-03-08] MEDS ORDERED: LEVO175T3 PO (23:36)
[2017-03-08] MEDS ORDERED: AMIT75TA2 PO (23:36)
[2017-03-09 00:02] VITALS: BP 155/90; PULSE 79; O2SAT 100
== END 2017-03-09 00:03 | disposition home or self-care (01) ==
LOC: C.EDB 19:24
DX: G43.909 Migraine, unspecified, not intractable, without status migrainosus (principal); R07.9 Chest pain, unspecified; I10 Essential (primary) hypertension; Z83.3 Family history of diabetes mellitus; Z82.49 Family history of ischemic heart disease and other diseases of the circulatory system

== ENCOUNTER 2017-06-05 11:51 | Emergency (ER) | payer BC ==
[~2017-06-05] VITALS: Ht 157.5 cm; Wt 98.1 kg
[~2017-06-05 11:51] MED LIST changes: +AMIT75TA2 PO; +ATV/1 PO; +BUTA1CAP18 PO; -CYCL5TAB PO; +DIPH25CA65 PO; +LEVO175T3 PO; +PROC1TAB5 PO; +PROP160C PO; +RBX500 PO; +ZNF/4 PO
[2017-06-05 11:56] VITALS: TEMP 37.2; Ht 157.5 cm; Wt 98.1 kg
[2017-06-05] MEDS ORDERED: PROP1TAB PO (12:08)
[2017-06-05] MEDS ORDERED: INDSR/60 PO (12:09)
[2017-06-05] MEDS ORDERED: SODIUM CHLORIDE 0.9% 1000ML 1,000 ML IV STA (12:29)
[2017-06-05] MEDS ORDERED: DiphenhydrAMINE HCL 50 MG/ML VIAL IV STA (12:29)
[2017-06-05] MEDS ORDERED: PROCHLORPERAZINE 5 MG/ML 2 ML VIAL IV STA (12:29)
[2017-06-05 12:40] LABS: BASO % 0.2 %; BASO ABS # 0.01 K/uL (0-0.2); EOS % 2.2 %; EOS ABS # 0.11 K/uL (0-0.5); HEMATOCRIT 34.3 % (37-47); HEMOGLOBIN 12.1 g/dL (12.0-16.0); IG# 0.01 K/uL (0.00-0.02); LYMPH % 22.7 %; LYMPH ABS # 1.16 K/uL (1.2-3.4); MEAN CORPUSCULAR HEMOGLOBIN 32.1 pg (25-34); MEAN CORPUSCULAR HGB CONC 35.3 g/dl (32-36); MEAN PLATELET VOLUME 8.6 fL (7.4-10.4); MONO % 5.5 %; MONO ABS # 0.28 K/uL (0.11-0.59); NEUT % 69.2 %; NEUT ABS # 3.54 K/uL (1.4-6.5); PLATELET COUNT 274 K/uL (130-400); RED CELL DISTRIBUTION WIDTH CV 11.6 % (11.5-14.5); RED CELL DISTRIBUTION WIDTH SD 38.5 fL (36.4-46.3); WHITE BLOOD COUNT 5.11 K/uL (4.8-10.8)
[2017-06-05 12:45] LABS: PTT PATIENT 25.8 SECONDS (21.0-31.0)
[2017-06-05 12:46] LABS: CREATININE 0.84 mg/dl (0.60-1.20); POTASSIUM 3.6 mmol/L (3.5-5.1)
[2017-06-05 13:31] VITALS: PULSE 81; O2SAT 99
[2017-06-05] MEDS ORDERED: BUTALBITAL/ACETAMIN/CAFFEINE TAB PO STA (13:36)
[2017-06-05] MEDS ORDERED: KETOROLAC TROMETHAMINE 30 MG/ML VIAL IV STA (13:36)
[2017-06-05 14:19] VITALS: BP 167/83
--- NOTE | 2017-06-05 14:34 | EMERGENCY ROOM VISIT NOTE ---
History Report prepared by Paula: Rachid Vyas Under the Supervision of: Dr. Arden Marcus M.D. First contact with patient: 12:16 Chief Complaint: HYPERTENSION Stated Complaint: HYPERTENSION/HEADACHE History of Present Illness The patient is a 51 year old female who presents to the Emergency Room with complaints of constant hypertension starting this morning. The patient states that she was at the pain clinic this morning for her frequent migraines, and they noticed that her blood pressure was high. She additionally notes that she has a headache this morning which feels like her normal migraines. The patient states that she usually feels her heart pounding in her head, and today she is feeling that as well, however, today she feels like her face feels numb on both sides. She denies numbness anywhere else. The patient additionally denies any chest pain, shortness of breath, vomiting, diarrhea, fever, difficulty walking, trouble with her vision, difficulty swallowing, or weakness on one side of her body. She notes that she has been feeling palpitations and extra heart beats this morning, and she states that she is having some ringing in her ears which she also gets with her migraines, but is louder than usual. The patient states that she usually takes Fioricet and a muscle relaxer for the pain, though she did not take them this morning. She states that she took her blood pressure medication, her thyroid medication, and Lexapro this morning. Source of History: patient Onset: this morning Position: other (global) Quality: other (hypertension) Timing: constant Associated Symptoms: + numbness, No fevers, No chest pain, No SOB, No vomiting, No diarrhea Review of Systems See HPI for pertinent positives & negatives. A total of 10 systems reviewed and were otherwise negative. Past Medical & Surgical Medical Problems: (1) HTN (hypertension) (2) Migraine Family History Diabetes mellitus Heart disease Hypertension Social History Smoking Status: Never Smoker Alcohol Use: none Drug Use: none Marital Status: Housing Status: lives with family Occupation Status: employed Current/Historical Medications Scheduled Amitriptyline Hcl (Elavil), 75 MG PO HS Escitalopram Oxalate (Lexapro), 20 MG PO QAM Levothyroxine Sodium (Levothyroxine Sodium), 175 MCG PO DAILY Lorazepam (Ativan), 1 MG PO UD Propranolol Hcl (Propranolol Hcl Er), 160 MG PO QAM Propranolol Hcl (Propranolol ER), 60 MG PO QAM Scheduled PRN Zilgaxgolr-Ubuavysntbwhl-Ildfu (Fioricet/Codeine), 1 CAP PO Q6 PRN for Migraine Diphenhydramine Hcl (Benadryl Allergy), 1-2 CAP PO Q6 PRN for Headache Prochlorperazine Maleate (Compazine), 10 MG PO Q6H PRN for Nausea or Vomiting Allergies Coded Allergies: Paroxetine (Verified Allergy, Intermediate, nauseous, 06/05/17) Butorphanol (Verified Allergy, Unknown, nauseous, 06/05/17) Cortisone (Verified Allergy, Unknown, HIVES,facial swelling, 06/05/17) Sulfa Drugs (Verified Allergy, Unknown, 06/05/17) Morphine (Verified Adverse Reaction, Mild, nauesous, 06/05/17) Iodine (Verified Adverse Reaction, Unknown, itch, 06/05/17) Physical Exam Vital Signs Date Time Temp Pulse Resp B/P (MAP) Pulse Ox O2 Delivery O2 Flow Rate FiO2 06/05/17 14:19 167/83 06/05/17 13:31 81 17 167/92 99 Room Air 06/05/17 12:39 77 16 192/105 98 Room Air 06/05/17 11:58 91 06/05/17 11:56 37.2 90 20 190/104 99 Room Air Physical Exam Constitutional: Vital signs reviewed. Eyes: Pupils are equal round reactive to light. Conjunctiva are noninjected. No papilledema. ENT: Pharynx is clear without erythema or exudate. Mucous membranes are moist. Neck supple without meningeal signs. Respiratory: Clear to auscultation bilaterally. Breath sounds are equal bilaterally. Cardiovascular: Regular rate and rhythm. No rubs or gallops. GI: Soft, nondistended and nontender. Bowel sounds are present. Musculoskeletal: No peripheral edema. No lower extremity tenderness. Integumentary: No cyanosis. Neurological: The patient is awake and alert. Cranial nerves II-XII are intact. Motor is 5 out of 5 all extremities. Sensation is intact to light touch all extremities. Normal speech. No pronator drift. Psychiatric: Normal affect. Medical Decision & Procedures Laboratory Results 06/05/17 11:30 Red Blood Count 3.77, Mean Corpuscular Volume 91.0, Mean Corpuscular Hemoglobin 32.1, Mean Corpuscular Hemoglobin Concent 35.3, Mean Platelet Volume 8.6, Neutrophils (%) (Auto) 69.2, Lymphocytes (%) (Auto) 22.7, Monocytes (%) (Auto) 5.5, Eosinophils (%) (Auto) 2.2, Basophils (%) (Auto) 0.2, Neutrophils # (Auto) 3.54, Lymphocytes # (Auto) 1.16, Monocytes # (Auto) 0.28, Eosinophils # (Auto) 0.11, Basophils # (Auto) 0.01 06/05/17 11:30 Test 06/05/17 11:30 06/05/17 12:37 White Blood Count 5.11 K/uL (4.8-10.8) Red Blood Count 3.77 M/uL (4.2-5.4) Hemoglobin 12.1 g/dL (12.0-16.0) Hematocrit 34.3 % (37-47) Mean Corpuscular Volume 91.0 fL (80-100) Mean Corpuscular Hemoglobin 32.1 pg (25-34) Mean Corpuscular Hemoglobin Concent 35.3 g/dl (32-36) Platelet Count 274 K/uL (130-400) Mean Platelet Volume 8.6 fL (7.4-10.4) Neutrophils (%) (Auto) 69.2 % Lymphocytes (%) (Auto) 22.7 % Monocytes (%) (Auto) 5.5 % Eosinophils (%) (Auto) 2.2 % Basophils (%) (Auto) 0.2 % Neutrophils # (Auto) 3.54 K/uL (1.4-6.5) Lymphocytes # (Auto) 1.16 K/uL (1.2-3.4) Monocytes # (Auto) 0.28 K/uL (0.11-0.59) Eosinophils # (Auto) 0.11 K/uL (0-0.5) Basophils # (Auto) 0.01 K/uL (0-0.2) RDW Standard Deviation 38.5 fL (36.4-46.3) RDW Coefficient of Variation 11.6 % (11.5-14.5) Immature Granulocyte % (Auto) 0.2 % Immature Granulocyte # (Auto) 0.01 K/uL (0.00-0.02) Prothrombin Time 10.1 SECONDS (9.0-12.0) Prothromb Time International Ratio 1.0 (0.9-1.1) Activated Partial Thromboplast Time 25.8 SECONDS (21.0-31.0) Partial Thromboplastin Ratio 1.0 Anion Gap 7.0 mmol/L (3-11) Est Creatinine Clear Calc Drug Dose 86.7 ml/min Estimated GFR () 93.3 Estimated GFR (Non- 80.5 BUN/Creatinine Ratio 16.5 (10-20) Calcium Level 9.0 mg/dl (8.5-10.1) Thyroid Stimulating Hormone (TSH) 0.934 uIu/ml (0.300-4.500) Free Thyroxine 1.39 ng/dl (0.80-1.60) Bedside Troponin I < 0.030 ng/ml (0-0.045) Laboratory results as reviewed by me. Medications Administered Medications (Trade) Dose Ordered Sig/Sandra Route Start Time Stop Time Status Last Admin Dose Admin Sodium Chloride 1,000 ml @ 999 mls/hr Q1H1M STAT IV 06/05/17 12:29 06/05/17 13:29 DC 06/05/17 12:39 999 MLS/HR Prochlorperazine Edisylate (Compazine Inj) 10 mg NOW STAT IV 06/05/17 12:29 06/05/17 12:31 DC 06/05/17 12:38 10 MG Diphenhydramine HCl (Benadryl Inj) 50 mg NOW STAT IV 06/05/17 12:29 06/05/17 12:31 DC 06/05/17 12:38 50 MG Acetaminophen/ Butalbital/ Caffeine (Fioricet Tab) 1 tab NOW STAT PO 06/05/17 13:36 06/05/17 13:37 DC 06/05/17 13:58 1 TAB Ketorolac Tromethamine (Toradol Inj) 10 mg NOW STAT IV 06/05/17 13:36 06/05/17 13:37 DC 06/05/17 13:59 10 MG ECG Per My Interpretation Indication: other (high blood pressure) Rate (beats per minute): 86 Rhythm: normal sinus Findings: other (No ST elevation. No PVC.) ED Course 1216: The patient was evaluated in room A10. A complete history and physical exam was performed. 1229: Benadryl 50mg IV, Compazine 10mg IV, Sodium Chloride 1000 ml @ 999 mls/hr IV 1333: The patient states that she still has a headache, and her blood pressure was 167/92 1336: Toradol 10mg IV, Fioricet 1 Tab PO 1409: I reevaluated the patient, and she feels better and is ready to to go home. She has an appointment in a week or two to see a doctor. She will be discharged home. Medical Decision This is a 51-year-old female presents with a headache and high blood pressure. Differential diagnosis includes migraine headache, tension headache, intracranial hemorrhage, medication noncompliance, metabolic derangement. I did perform a limited focused review of portions of the patient's old chart on the electronic medical record. The patient has been here frequently for migraines. She was last seen here for a migraine in February. She had a normal head CT in December. Her blood pressures have been traditionally high when she visits. I did evaluate the patient as noted above. Patient is presenting with a headache today. She was at the pain clinic to follow-up. She normally is given Fioricet for headaches. She states the headache today feels like her prior migraines but she does have an additional symptom which she describes as numbness to both cheeks. On my examination she is neurologically intact. She has no sensory or motor deficit. She has no papilledema to suggest increased intracranial pressure. Her blood pressure is elevated, but this may be a consequence of her migraine. She has been compliant with her medications. IV access was established. The patient was placed on a continuous secured entrance monitor. I did order and personally review the patient's 12-lead EKG as described above. I did order and review the patient's blood work as noted in the electronic medical record. Troponin, electrolytes and thyroid function tests are unremarkable. I did treat patient with IV normal saline, Compazine IV and Benadryl IV. I did reassess the patient. She still has headaches I did give her Toradol IV and Fioricet orally. On reassessment her blood pressure is improved and she feels better. I did have the ED pharmacist talked her about her high blood pressure medications. She stated that the patient, if necessary , could increase her propanolol. I did recommend that she keep a diary of her blood pressures and follow-up with her primary care physician to see if this is necessary. She was discharged in good condition. Medication Reconcilliation Current Medication List: was personally reviewed by me Blood Pressure Screening Patient's blood pressure: Elevated blood pressure Blood pressure disposition: Referred to PCP Impression Primary Impression: Acute headache Additional Impressions: Poorly-controlled hypertension Palpitations Scribe Attestation The scribe's documentation has been prepared under my direct and personally reviewed by me in its entirety. I confirm that the note above accurately reflects all work, treatment, procedures, and medical decision making performed by me. Departure Information Dispostion Home / Self-Care Referrals Sangeeta Tejeda M.D. (PCP) Forms HOME CARE DOCUMENTATION FORM, IMPORTANT VISIT INFORMATION, WORK / SCHOOL INSTRUCTIONS Patient Instructions ED Hypertension Conf Out Of Control, Headaches Migraine and Tension, My [facility] Additional Instructions You have been examined and treated today on an emergency basis only. This is not a substitute for, or an effort to provide, complete comprehensive medical care. It is impossible to recognize and treat all injuries or illnesses in a single emergency department visit. It is therefore important that you follow up closely with your physician. Call as soon as possible for an appointment. Return for worsening symptoms or if you develop fever, numbness or weakness on one side of your body, difficulties with your speech or walking, or any other concerning symptoms. Problem Qualifiers Primary Impression: Acute headache Headache type: unspecified Intractability: not intractable Qualified Codes : R51 - Headache
== END 2017-06-05 14:21 | disposition home or self-care (01) ==
LOC: C.EDA 11:51 → EDBD 11:51 → C.EDA 14:21
DX: R51 Headache (principal); I10 Essential (primary) hypertension; R00.2 Palpitations; Z88.5 Allergy status to narcotic agent; Z88.8 Allergy status to other drugs, medicaments and biological substances; Z88.2 Allergy status to sulfonamides

== ENCOUNTER 2018-02-09 13:10 | Inpatient (IN) ==
[2018-02-09] MEDS ORDERED: ONDANSETRON INJ 2 MG/ML 2 ML VIAL IV STA (13:36)
[2018-02-09] MEDS ORDERED: KETOROLAC TROMETHAMINE 15 MG/ML VIAL IV STA (13:36)
--- NOTE | 2018-02-09 13:41 | Emergency Department Note ---
History of Present Illness General Chief complaint: Flank Pain Stated complaint: FLANK PAIN Source: patient Mode of arrival: ambulatory Limitations: no limitations History of Present Illness This patient is a 52-year-old female who presents to the emergency department complaining of left flank pain. The patient reports that her pain started suddenly this morning when she woke up, approximately 8 hours prior to arrival. She reports the pain is in her left flank and radiates slightly into her abdomen. She has felt chills today but has not taken her temperature. She took a Fioricet with codeine early this morning with no relief. She has been nauseous but has not vomited. She reports that her urine is cloudy and has a foul odor, but denies any other urinary symptoms. She does report a history of kidney stones as well as an episode of pyelonephritis a few months ago. She does not have a urologist. She rates her overall discomfort an 8/10 and states the pain is sharp. She denies recent changes in bowel movements. Home Medications Home Medications Medication Instructions Recorded Confirmed Type amitriptyline 75 mg PO HS 12/13/17 02/09/18 History [id number] 1 cap PO Q6H PRN 12/13/17 02/09/18 History cyclobenzaprine 5 - 10 mg PO Q12H PRN 12/13/17 02/09/18 History escitalopram oxalate 20 mg PO QAM 12/13/17 02/09/18 History levothyroxine 175 mcg PO QAM 12/13/17 02/09/18 History losartan 50 mg PO HS 12/13/17 02/09/18 History propranolol 160 mg PO QAM 12/13/17 02/09/18 History diclofenac sodium 50 mg PO TID PRN 02/09/18 02/09/18 History tizanidine 4 mg PO TID 02/09/18 02/09/18 History Allergies Allergy/AdvReac Type Severity Reaction Status Date / Time paroxetine Allergy Intermediate nauseous Verified 02/09/18 14:00 butorphanol Allergy Unknown nauseous Verified 02/09/18 14:00 cortisone Allergy Unknown HIVES,facial Verified 02/09/18 14:00 swelling Sulfa (Sulfonamide Allergy Unknown Unknown Verified 02/09/18 14:00 Antibiotics) morphine AdvReac Mild nauesous Verified 02/09/18 14:00 iodine AdvReac Unknown itch Verified 02/09/18 14:00 Past Med/Surg History Medical History UTI (urinary tract infection) Obesity (BMI 30-39.9) Left nephrolithiasis Benign essential HTN History of kidney stones Injury of right lower arm (Acute) Hip injury (Acute) Head injury (Acute) Fall (Acute) Migraine (Acute) HTN (hypertension) (Chronic) Acute kidney injury (Acute 04/03/14) Acute pyelonephritis (Acute 04/03/14) Atypical migraine (Acute) Cephalgia (Acute) Concussion (Acute) Contusion of multiple sites (Acute) Headache (Acute) Hypokalemia (Acute) Intractable headache (Acute) Positive D dimer (Acute) Renal insufficiency (Acute) Kidney stones Surgical History H/O lithotripsy Social History marital status: Current Living Situation: Spouse Other Information That Helps Us Care for You: No Feels Safe at Home: Yes Safety Concerns: Feels Safe At This Time Smoking Status: Never smoker Do You Dip or Chew Tobacco: No Second Hand Exposure: No Tobacco Cessation Education Requested by Patient: No Hx Alcohol Use: Yes Alcohol type: hard liquor Alcohol Intake Frequency: holidays/special occasions only Hx Substance Use: No Beliefs That Will Affect Care: None Preferred Language: Setswana Communication Ability: Effective Pollution Control Engineer Required: No Review of Systems A total of 10 systems reviewed and were otherwise negative Physical Exam Vital Signs Vital Signs - 24 hr 02/09/18 13:17 02/09/18 13:33 02/09/18 15:10 Temperature 38 C H 37.2 C Temperature Source Oral Oral Sepsis Recent Fever Within 48 Hours No Sepsis Action Taken by Nursing No Action Required Pulse Rate 84 Pulse Rate [Finger] 83 Pulse Rhythm Regular Pulse Strength Normal Respiratory Rate 20 20 Respiratory Effort / Characteristics Non-Labored Spontaneous Respiratory Depth Normal Respiratory Pattern Regular Blood Pressure 141/85 H Blood Pressure [Right Arm] 154/72 H Blood Pressure Mean 103 Blood Pressure Mean [Right Arm] 99 Blood Pressure Position Sitting Pulse Oximetry 96 99 Oxygen Delivery Method Room Air Room Air 02/09/18 17:00 02/09/18 18:19 02/09/18 18:33 Temperature 37.6 C H 36.7 C Temperature Source Oral Oral Sepsis Recent Fever Within 48 Hours Sepsis Action Taken by Nursing Pulse Rate 85 Pulse Rate [Finger] 88 105 H Pulse Rhythm Pulse Strength Respiratory Rate 20 20 18 Respiratory Effort / Characteristics Non-Labored Spontaneous Respiratory Depth Normal Respiratory Pattern Regular Blood Pressure 128/70 Blood Pressure [Right Arm] 130/88 147/81 H Blood Pressure Mean Blood Pressure Mean [Right Arm] 102 103 Blood Pressure Position Pulse Oximetry 100 99 97 Oxygen Delivery Method Room Air Room Air Room Air VITALS: Vitals are noted on the nurse's note and reviewed by myself. Vital signs stable. GENERAL: This is a 52-year-old female, in no acute distress, nondiaphoretic, well-developed well-nourished. SKIN: The skin was without rashes. EARS: External auditory canals clear, tympanic membranes pearly jay without erythema or effusion bilaterally. EYES: Pupils equal round and reactive to light and accommodation. MOUTH: Mucous membranes moist. Tonsils are not enlarged. Pharynx without erythema or exudate. NECK: Supple without nuchal rigidity. No lymphadenopathy. HEART: Regular rate and rhythm without murmurs gallops or rubs. LUNGS: Clear to auscultation bilaterally without wheezes, rales or rhonchi. ABDOMEN: Positive bowel sounds x 4. Soft, nontender to palpation. No guarding or rebound tenderness. Positive left CVA tenderness. MUSCULOSKELETAL: No tenderness of the thoracic or lumbar spine or paraspinous muscles. NEURO: Patient was alert and oriented to person place and time. Course Consultations Consultation #1: Dr. Chance - urology Consultation #2: Reina Christianson - [facility] – [place] hospitalist Administered Medications Amitriptyline HCl (Elavil) 50 mg PO HS QUENTIN Stop: 03/11/18 20:59 Last Admin: 02/09/18 20:42 Dose: 50 mg Diphenhydramine HCl (Benadryl) 25 mg IV Q6H PRN PRN Reason: Migraine Headache Stop: 03/11/18 19:00 Last Admin: 02/09/18 20:44 Dose: 25 mg Sodium Chloride (Nss 1000ml) 1,000 mls @ 125 mls/hr IV .Q8H QUENTIN Stop: 03/11/18 18:28 Last Infusion: 02/09/18 21:53 Dose: 125 mls/hr Admin: 02/09/18 20:22 Dose: 125 mls/hr Ketorolac Tromethamine (Toradol) 15 mg IV Q6H PRN PRN Reason: Pain Stop: 02/14/18 19:00 Last Admin: 02/09/18 20:43 Dose: 15 mg Losartan Potassium (Cozaar) 50 mg PO HS QUENTIN Stop: 03/11/18 20:59 Last Admin: 02/09/18 20:42 Dose: 50 mg Metoclopramide HCl (Reglan) 10 mg IV Q6H PRN PRN Reason: Migraine Headache Stop: 03/11/18 19:00 Last Admin: 02/09/18 20:43 Dose: 10 mg Tamsulosin HCl (Flomax) 0.4 mg PO HS QUENTIN Stop: 03/11/18 20:59 Last Admin: 02/09/18 20:42 Dose: 0.4 mg Discontinued Medications Hydromorphone HCl (Dilaudid) 0.5 mg IV NOW STA Stop: 02/09/18 16:43 Last Admin: 02/09/18 17:02 Dose: 0.5 mg Hydromorphone HCl (Dilaudid) 1 mg IV NOW STA Stop: 02/09/18 17:44 Last Admin: 02/09/18 17:59 Dose: 1 mg Sodium Chloride (Nss 1000ml) 1,000 mls @ 999 mls/hr IV .Q1H1M QUENTIN Stop: 02/09/18 14:45 Last Infusion: 02/09/18 15:15 Dose: 0 mls/hr Admin: 02/09/18 14:21 Dose: 999 mls/hr Ceftriaxone Sodium (Rocephin) 1,000 mg in 50 mls @ 100 mls/hr IV NOW STA Stop: 02/09/18 17:11 Last Infusion: 02/09/18 17:40 Dose: 0 mls/hr Admin: 02/09/18 17:02 Dose: 100 mls/hr Ketorolac Tromethamine (Toradol) 15 mg IV NOW STA Stop: 02/09/18 13:37 Last Admin: 02/09/18 14:21 Dose: 15 mg Ondansetron HCl (Zofran) 4 mg IV NOW STA Stop: 02/09/18 13:37 Last Admin: 02/09/18 14:21 Dose: 4 mg Medical Decision Making Differential Diagnosis Differential diagnosis includes pyelonephritis, obstructing kidney stone, UTI, musculoskeletal pain, herpes zoster, among others. Medical Records Attestation: I reviewed the patient's medical records. Home Medications Current Medication List: was personally reviewed by me Laboratory Data Attestation: I reviewed the patient's lab results. Result diagrams: 02/09/18 14:10 02/09/18 14:10 Lab Results 02/09/18 02/09/18 02/09/18 Range/Units 14:10 14:10 14:15 WBC 9.72 (4.8-10.8) K/uL RBC 3.74 L (4.2-5.4) M/uL Hgb 12.1 (12.0-16.0) g/dL Hct 34.6 L (37-47) % MCV 92.5 (80-100) fL MCH 32.4 (25-34) pg MCHC 35.0 (32-36) g/dL RDW Std Deviation 45.0 (36.4-46.3) fL RDW Coeff of [place] 13.2 (11.5-14.5) % Plt Count 216 (130-400) K/uL MPV 8.5 (7.4-10.4) fL Immature Gran % (Auto) 0.2 % Neut % (Auto) 88.2 % Lymph % (Auto) 7.0 % [place] % (Auto) 3.9 % Eos % (Auto) 0.6 % Baso % (Auto) 0.1 % Immature Gran # (Auto) 0.02 (0.00-0.02) K/uL Neut # (Auto) 8.57 H (1.4-6.5) K/uL Lymph # (Auto) 0.68 L (1.2-3.4) K/uL [place] # (Auto) 0.38 (0.11-0.59) K/uL Eos # (Auto) 0.06 (0-0.5) K/uL Baso # (Auto) 0.01 (0-0.2) K/uL Sodium 136 (136-145) mmol/L Potassium 3.8 (3.5-5.1) mmol/L Chloride 102 (98-107) mmol/L Carbon Dioxide 26 (21-32) mmol/L Anion Gap 8.0 (3-11) BUN 17 (7-18) mg/dl Creatinine 1.03 (0.6-1.2) mg/dl Est Cr Clr Drug Dosing 65.8 ml/min Est GFR ( Amer) 72.4 Est GFR (Non-Af Amer) 62.5 BUN/Creatinine Ratio 16.3 (10-20) Glucose 111 H (70-99) mg/dl Calcium 9.5 (8.5-10.1) mg/dl Total Bilirubin 0.5 (0.1-1) mg/dl AST 15 (15-37) U/L ALT 24 (12-78) U/L Alkaline Phosphatase 130 H (45-117) U/L Total Protein 8.6 H (6.4-8.2) gm/dl Albumin 4.4 (3.4-5.0) gm/dl Globulin 4.2 H (2.5-4.0) gm/dl Albumin/Globulin Ratio 1.1 (0.9-2) Urine Color Yellow Urine Appearance Cloudy H (Clear) Urine pH 5.5 (4.5-7.5) Ur Specific [place] 1.025 (1.000-1.030) Urine Protein 1+ H (Negative) Urine Glucose (UA) Negative (Negative) Urine Ketones Negative (Negative) Urine Blood 3+ H (Negative) Urine Nitrite Positive H (Negative) Urine Bilirubin Negative (Negative) Urine Urobilinogen Negative (Negative) Ur Leukocyte Esterase 2+ H (Negative) Urine RBC 10-30 H (0-4) /hpf Urine WBC >30 H (0-5) /hpf Ur Epithelial Cells 0-5 (0-5) /lpf Urine Bacteria 4+ H (Negative) Imaging Data Attestation: I personally reviewed and interpreted this imaging study as follows : Radiologist's Impression: RENAL ULTRASOUND FINDINGS: Right kidney: 10.4 cm. No hydronephrosis. Normal corticomedullary differentiation and cortical thickness. Left kidney: 12.1 cm. Mild hydronephrosis. Normal corticomedullary differentiation and cortical thickness. Bladder: No bladder wall thickening. The bilateral ureteral jets were not identified. IMPRESSION: 1. Mild left hydronephrosis. 2. Normal right kidney. ABDOMEN AND PELVIS CT WITHOUT CONTRAST FINDINGS: Lung bases are generally clear. No pneumatosis or pneumoperitoneum. Imaged inferior cardiac chambers are unremarkable. Mildly distended gallbladder. Liver is unremarkable. Spleen, pancreas and adrenal glands are unremarkable. Right kidney appears normal. Mild to moderate left-sided hydroureteronephrosis with associated perinephric and periureteral inflammatory stranding secondary to a 5 x 4 x 6 cm calculus of the mid left ureter at the level of the L4-L5 intervertebral disc space. Additionally, punctate nonobstructing calculus of the interpolar left kidney is noted. Urinary bladder, uterus and adnexa are unremarkable. Aorta and IVC are within normal limits. No adenopathy. Small sliding-type hiatal hernia with mild wall thickening about the distal esophagus. No small bowel obstruction. Colonic diverticulosis without acute diverticulitis. There is a nondistention noted about the colon. Equivocal inflammatory stranding noted about the splenic flexure on image 103 series 3. Moderate formed stool about the cecum, ascending and transverse colon. Appendix appears normal. Soft tissues are within normal limits. Bones appear intact. IMPRESSION: 1. Mild to moderate left-sided hydroureteronephrosis secondary to a 5 x 4 x 6 mm calculus of the mid left ureter at the level of the L4-L5 disc space. 2. Punctate nonobstructing calculus of the interpolar left kidney. 3. Small sliding-type hiatal hernia with mild wall thickening of the distal esophagus. 4. Colonic diverticulosis. 5. Additional findings as above. Blood Pressure Blood Pressure Findings: Elevated blood pressure Blood Pressure Disposition: further management by hospitalist MDM Narrative The patient is a 52-year-old female who presents today complaining of left flank pain. Labs revealed no leukocytosis, anemia or concerning electrolyte abnormalities. Urinalysis was suggestive of infection, with the presence of nitrites, leukocyte esterase, greater than 30 white blood cells and 4+ bacteria. Ultrasound was initially performed which showed mild hydronephrosis. CT was then performed which did show a ureteral stone. Urology was consulted and recommended admission to the hospital and will consult tomorrow. Patient was given a dose of IV Rocephin. Case was discussed with the [facility] hospitalist for further management. Impression & Plan Left ureteral calculus, Urinary tract infection Discharge Plan Visit Data *Final* Discharge Date/Time: 02/09/18 18:19 Chief Complaint: Flank Pain Stated Complaint: FLANK PAIN ED Provider: Baljeet Aparicio ED Midlevel Provider: Argenis Alas Discharge Problem: Left ureteral calculus, Urinary tract infection Patient Disposition: Admitted As Inpatient Condition: Good Discharge Instructions Interventions: ED Discharge Assessment Last Done: 02/09/18 18:19
[2018-02-09] MEDS ORDERED: SODIUM CHLORIDE 0.9% 1000ML 1,000 ML IV SCH (13:45)
[2018-02-09 14:28] LABS: Basophils # (auto) 0.01 K/uL (0-0.2); Basophils % (auto) 0.1 %; Eosinophils # (auto) 0.06 K/uL (0-0.5); Eosinophils % (auto) 0.6 %; Hematocrit (blood only) 34.6 % (37-47); Hemoglobin 12.1 g/dL (12.0-16.0); Immature Granulocytes # (auto) 0.02 K/uL (0.00-0.02); Immature Granulocytes % (auto) 0.2 %; Lymphocytes # (auto) 0.68 K/uL (1.2-3.4); Mean Corpuscular Volume 92.5 fL (80-100); Mean Platelet Volume 8.5 fL (7.4-10.4); Monocytes # (auto) 0.38 K/uL (0.11-0.59); Monocytes % (auto) 3.9 %; Neutrophils # (auto) 8.57 K/uL (1.4-6.5); Neutrophils % (auto) 88.2 %; Platelet Count 216 K/uL (130-400); RDW Coefficient of Variation 13.2 % (11.5-14.5); Red Blood Count 3.74 M/uL (4.2-5.4); White Blood Count 9.72 K/uL (4.8-10.8)
[2018-02-09 14:40] LABS: Albumin Level 4.4 gm/dl (3.4-5.0); BUN Creatinine Ratio 16.3 (10-20); Calcium 9.5 mg/dl (8.5-10.1); Creatinine Clr Calc Pharmacy 65.8 ml/min; Est GFR (African American) 72.4; Est GFR (Non-African American) 62.5; Potassium 3.8 mmol/L (3.5-5.1)
[2018-02-09 14:43] LABS: Albumin Globulin Ratio 1.1 (0.9-2); Bilirubin,Total 0.5 mg/dl (0.1-1); Globulin 4.2 gm/dl (2.5-4.0); Total Protein 8.6 gm/dl (6.4-8.2)
[2018-02-09 15:20] LABS: Appearance Urine Cloudy (Clear); Bilirubin Urine Negative (Negative); Color Urine Yellow; Glucose Urine UA Negative (Negative); Ketones Urine Negative (Negative); Leukocyte Esterase Urine 2+ (Negative); Nitrite Urine Positive (Negative); Protein Urine 1+ (Negative); Specific Gravity Urine 1.025 (1.000-1.030); Urobilinogen Urine Negative (Negative); pH Urine 5.5 (4.5-7.5)
[2018-02-09 15:47] LABS: Bacteria Urine 4+ (Negative); WBC Urine >30 /hpf (0-5)
--- NOTE | 2018-02-09 16:16 | Ultrasound Report ---
RENAL ULTRASOUND HISTORY: left flank pain, hx kidney stones/pyelo COMPARISON: Renal ultrasound 12/18/2017. FINDINGS: Right kidney: 10.4 cm. No hydronephrosis. Normal corticomedullary differentiation and cortical thickn ess. Left kidney: 12.1 cm. Mild hydronephrosis. Normal corticomedullary differentiation and cortical thick ness. Bladder: No bladder wall thickening. The bilateral ureteral jets were not identified. IMPRESSION: 1. Mild left hydronephrosis. 2. Normal right kidney. Electronically signed by: Dwain Gaspar M.D. 02/09/2018 4:15 PM
[2018-02-09] MEDS ORDERED: cefTRIAXone SODIUM 1,000 MG/50 ML BAG IV STA (16:42)
[2018-02-09] MEDS ORDERED: HYDROmorphone INJ 0.5 MG/0.5 ML SYR IV STA (16:42)
--- NOTE | 2018-02-09 17:35 | CT Scan Report ---
ABDOMEN AND PELVIS CT WITHOUT CONTRAST CT DOSE: 900.91 mGycm HISTORY: Acute left-sided flank pain with UTI. left flank pain, infected urine TECHNIQUE: Multiaxial CT images of the abdomen and pelvis were performed without contrast. A dose lo wering technique was utilized adhering to the principles of ALARA. COMPARISON STUDY: CT abdomen and pelvis 12/13/2017, renal ultrasound 02/09/2018. FINDINGS: Lung bases are generally clear. No pneumatosis or pneumoperitoneum. Imaged inferior cardiac chambers are unremarkable. Mildly distended gallbladder. Liver is unremarkable. Spleen, pancreas and adrenal glands are unremark able. Right kidney appears normal. Mild to moderate left-sided hydroureteronephrosis with associated perinephric and periureteral inflammatory stranding secondary to a 5 x 4 x 6 cm calculus of the mid l eft ureter at the level of the L4-L5 intervertebral disc space. Additionally, punctate nonobstructing calculus of the interpolar left kidney is noted. Urinary bladder, uterus and adnexa are unremarkable . Aorta and IVC are within normal limits. No adenopathy. Small sliding-type hiatal hernia with mild wal l thickening about the distal esophagus. No small bowel obstruction. Colonic diverticulosis without a cute diverticulitis. There is a nondistention noted about the colon. Equivocal inflammatory stranding noted about the splenic flexure on image 103 series 3. Moderate formed stool about the cecum, ascend ing and transverse colon. Appendix appears normal. Soft tissues are within normal limits. Bones appea r intact. IMPRESSION: 1. Mild to moderate left-sided hydroureteronephrosis secondary to a 5 x 4 x 6 mm calculus of the mid left ureter at the level of the L4-L5 disc space. 2. Punctate nonobstructing calculus of the interpolar left kidney. 3. Small sliding-type hiatal hernia with mild wall thickening of the distal esophagus. 4. Colonic diverticulosis. 5. Additional findings as above. Electronically signed by: Austyn Smart M.D. 02/09/2018 5:33 PM
[2018-02-09] MEDS ORDERED: HYDROmorphone INJ 1 MG/ML SYRINGE IV STA (17:43)
--- NOTE | 2018-02-09 18:23 | History & Physical Report ---
Date of Service February 09, 2018 Assessment & Plan (1) Left nephrolithiasis: - Admit to med surg - Consulted Dr. Fuentes as patient has not established with outpatient urology - discussed with him over the phone - NSS at 125 mL/hr for hydration -start Flomax 0.4mg po qhs - Zofran for antiemetics - Allow diet at this time, n.p.o. after midnight in case of need for procedure - Continue ceftriaxone IV, received 1 dose in the ER for likely UTI with grossly positive UA - CT ABD/pelvis showing 4 x 5 x 6 mm stone in mid left ureter with mild-mod hydronephrosis, reviewed as per imaging (2) History of kidney stones: -Patient has received lithotripsy one time in the past, early (3) UTI (urinary tract infection): - Follow UCx and sensitivities, cont ceftriaxone. (4) Migraine: -Chronic, follows with Dr. Henderson as an outpatient. -Can continue propranolol which was recently started for headaches, continue diclofenac, Fioricet, tizanidine and Flexeril in the setting of neck stiffness causing cervicogenic headaches. (5) Benign essential HTN: -Continue losartan 50 mg p.o. at bedtime, propranolol 160 mg every morning on board as above, prescribed due to headaches and BP which was not as well controlled in the outpatient setting. (6) Obesity (BMI 30-39.9): - Diet and exercise will need to be further discussed prior to discharge. (7) DVT prophylaxis: teds, scds, no chemical anticoagulation in setting of possible procedure, ambulatory History of Present Illness Primary Care Provider: Sangeeta Tejeda MD This is a 52 yo F with PMHx of nephrolithiasis, HTN, acquired hypothyroidism, and migraines who presents to the ER today with increasing worsening left-sided flank pain relatable to childbirth, nausea, dry heaves, sweats and chills times 1 day. Patient notes she was seen here about 1 month ago in the ER for similar symptoms however was treated with Cipro for at least 1 week as there were no findings of nephrolithiasis on imaging. Today CT of the abdomen/pelvis shows a left-sided hydroureteronephrosis secondary to a 5 x 4 x 6 mm calculus of the mid left ureter at the level of the L4-L5 disc space. Patient has received pain medication in the ER which has dropped her pain to a 6/10. She does report being hungry currently. Patient notes that she did have lithotripsy one time in early , but is currently not established with a urologist. No WBC, Tmax of 38, UA appears grossly positive Allergies Allergy/AdvReac Type Severity Reaction Status Date / Time paroxetine Allergy Intermediate nauseous Verified 02/09/18 14:00 butorphanol Allergy Unknown nauseous Verified 02/09/18 14:00 cortisone Allergy Unknown HIVES,facial Verified 02/09/18 14:00 swelling Sulfa (Sulfonamide Allergy Unknown Unknown Verified 02/09/18 14:00 Antibiotics) morphine AdvReac Mild nauesous Verified 02/09/18 14:00 iodine AdvReac Unknown itch Verified 02/09/18 14:00 Home Medications Home Medications Medication Instructions Recorded Confirmed Type amitriptyline 75 mg PO HS 12/13/17 02/09/18 History iadwhdevkg-sewuliuigs-jib-cod 1 cap PO Q6H PRN 12/13/17 02/09/18 History cyclobenzaprine 5 - 10 mg PO Q12H PRN 12/13/17 02/09/18 History escitalopram oxalate 20 mg PO QAM 12/13/17 02/09/18 History levothyroxine 175 mcg PO QAM 12/13/17 02/09/18 History losartan 50 mg PO HS 12/13/17 02/09/18 History propranolol 160 mg PO QAM 12/13/17 02/09/18 History diclofenac sodium 50 mg PO TID PRN 02/09/18 02/09/18 History tizanidine 4 mg PO TID 02/09/18 02/09/18 History Past Med/Surg History Medical History UTI (urinary tract infection) Obesity (BMI 30-39.9) Left nephrolithiasis Benign essential HTN History of kidney stones Injury of right lower arm (Acute) Hip injury (Acute) Head injury (Acute) Fall (Acute) Migraine (Acute) HTN (hypertension) (Chronic) Acute kidney injury (Acute 04/03/14) Acute pyelonephritis (Acute 04/03/14) Atypical migraine (Acute) Cephalgia (Acute) Concussion (Acute) Contusion of multiple sites (Acute) Headache (Acute) Hypokalemia (Acute) Intractable headache (Acute) Positive D dimer (Acute) Renal insufficiency (Acute) Kidney stones Surgical History H/O lithotripsy Social History marital status: Current Living Situation: Spouse Other Information That Helps Us Care for You: No Feels Safe at Home: Yes Safety Concerns: Feels Safe At This Time Smoking Status: Never smoker Do You Dip or Chew Tobacco: No Second Hand Exposure: No Tobacco Cessation Education Requested by Patient: No Hx Alcohol Use: Yes Alcohol type: hard liquor Alcohol Intake Frequency: holidays/special occasions only Hx Substance Use: No Beliefs That Will Affect Care: None Preferred Language: Spanish Communication Ability: Effective Rn Telemetry Required: No Review of Systems Constitutional: + fever, sweats and chills, + migraine Eyes: No diplopia, no worsening or blurred vision ENT: normal hearing, no trouble swallowing Respiratory: No cough, sputum, dyspnea at rest or on exertion Cardiovascular: No chest pain, tightness or palpitations Back: + Left-sided flank pain Abdomen: No pain, nausea, vomiting, diarrhea or constipation Musculoskeletal: No joint pain, calf pain, swelling Neurologic: No weakness, numbness/tingling, or balance problems Psychiatric: No anxiety or depression Physical Exam 2 Vital Signs (Past 24 Hours): Last Vital Signs Temp 37.6 C H 02/09/18 17:00 Pulse 85 02/09/18 18:19 Resp 20 02/09/18 18:19 BP 128/70 02/09/18 18:19 Pulse Ox 99 02/09/18 18:19 Physical Exam: General: awake, alert, no apparent distress, + obese Head: Normocephalic, atraumatic ENT: PERRL, EOMI, no pharyngeal exudate, mucous membranes moist Chest: Clear to auscultation, on room air, no adventitious breath sounds Cardiac: Regular rate and rhythm, no murmur, no JVD, normal peripheral pulses, good capillary refill Abdominal: NABS x 4 quadrants, soft, nontender to palpation, no rebound, guarding or tenderness Back: + CVA tenderness over left side Extremities: Normal inspection, no peripheral edema or erythema, calfs nontender to palpation Psych: Normal mood and affect Neuro: AAO x 3, strength intact bilaterally and related 5/5, no motor deficits, speech is clear Results & Data Laboratory Results Abnormal lab results 02/09/18 02/09/18 02/09/18 Range/Units 14:10 14:10 14:15 RBC 3.74 L (4.2-5.4) M/uL Hct 34.6 L (37-47) % Neut # (Auto) 8.57 H (1.4-6.5) K/uL Lymph # (Auto) 0.68 L (1.2-3.4) K/uL Glucose 111 H (70-99) mg/dl Alkaline Phosphatase 130 H (45-117) U/L Total Protein 8.6 H (6.4-8.2) gm/dl Globulin 4.2 H (2.5-4.0) gm/dl Urine Appearance Cloudy H (Clear) Urine Protein 1+ H (Negative) Urine Blood 3+ H (Negative) Urine Nitrite Positive H (Negative) Ur Leukocyte Esterase 2+ H (Negative) Urine RBC 10-30 H (0-4) /hpf Urine WBC >30 H (0-5) /hpf Urine Bacteria 4+ H (Negative) Diagnostic Findings RENAL ULTRASOUND HISTORY: left flank pain, hx kidney stones/pyelo COMPARISON: Renal ultrasound 12/18/2017. FINDINGS: Right kidney: 10.4 cm. No hydronephrosis. Normal corticomedullary differentiation and cortical thickness. Left kidney: 12.1 cm. Mild hydronephrosis. Normal corticomedullary differentiation and cortical thickness. Bladder: No bladder wall thickening. The bilateral ureteral jets were not identified. IMPRESSION: 1. Mild left hydronephrosis. 2. Normal right kidney. ABDOMEN AND PELVIS CT WITHOUT CONTRAST CT DOSE: 900.91 mGycm HISTORY: Acute left-sided flank pain with UTI. left flank pain, infected urine TECHNIQUE: Multiaxial CT images of the abdomen and pelvis were performed without contrast. A dose lowering technique was utilized adhering to the principles of ALARA. COMPARISON STUDY: CT abdomen and pelvis 12/13/2017, renal ultrasound 02/09/2018. FINDINGS: Lung bases are generally clear. No pneumatosis or pneumoperitoneum. Imaged inferior cardiac chambers are unremarkable. Mildly distended gallbladder. Liver is unremarkable. Spleen, pancreas and adrenal glands are unremarkable. Right kidney appears normal. Mild to moderate left-sided hydroureteronephrosis with associated perinephric and periureteral inflammatory stranding secondary to a 5 x 4 x 6 cm calculus of the mid left ureter at the level of the L4-L5 intervertebral disc space. Additionally, punctate nonobstructing calculus of the interpolar left kidney is noted. Urinary bladder, uterus and adnexa are unremarkable. Aorta and IVC are within normal limits. No adenopathy. Small sliding-type hiatal hernia with mild wall thickening about the distal esophagus. No small bowel obstruction. Colonic diverticulosis without acute diverticulitis. There is a nondistention noted about the colon. Equivocal inflammatory stranding noted about the splenic flexure on image 103 series 3. Moderate formed stool about the cecum, ascending and transverse colon. Appendix appears normal. Soft tissues are within normal limits. Bones appear intact. IMPRESSION: 1. Mild to moderate left-sided hydroureteronephrosis secondary to a 5 x 4 x 6 mm calculus of the mid left ureter at the level of the L4-L5 disc space. 2. Punctate nonobstructing calculus of the interpolar left kidney. 3. Small sliding-type hiatal hernia with mild wall thickening of the distal esophagus. 4. Colonic diverticulosis. 5. Additional findings as above. Code Status & VTE Plan Code Status Full code Supervising Physician Co-Signing Physician Notes PA Supervision Note: I personally saw and examined the patient. I verified all herring points and agree with IRENA Christianson with the following exceptions and/or additions: Pt here with acute left flank pain and fever, UTI, left ureterolithiasis found on imaging. Having some nausea nd now has one of her typical migraine headaches. Vitals reviewed NAD, EOMI, anicteric sclerae RRR no mgr CTAB no wcr ABd +BS soft NT ND, +L CVA tenderness Ext no edema 52 yo female with left ureterolithiasis and hydronephrosis, with UTI and acute pyelonephritis -Stone likely to pass on its own -Flomax, IVFs, antibiotics, f/u Ur cx result -pain meds prn
[2018-02-09] MEDS ORDERED: ONDANSETRON INJ 2 MG/ML 2 ML VIAL IV PRN (18:29)
[2018-02-09] MEDS ORDERED: MoRPHine SULFATE 4 MG/ML 1 ML CARP\\VIAL IV PRN (18:29)
[2018-02-09] MEDS ORDERED: MoRPHine SULFATE 2 MG/ML CARP IV PRN (18:29)
[2018-02-09] MEDS ORDERED: BUTALBITAL/ASA/CAFFEINE/COD 50/325/40/30 MG CAP PO PRN (18:45)
[2018-02-09] MEDS: SODIUM CHLORIDE 0.9% 1000ML 1,000 ML IV SCH (20:22)
[2018-02-09] MEDS: KETOROLAC TROMETHAMINE 15 MG/ML VIAL IV PRN (20:43)
[2018-02-09] MEDS: METOCLOPRAMIDE HCL INJ 5 MG/ML 2 ML VIAL IV PRN (20:43)
[2018-02-09] MEDS: DiphenhydrAMINE HCL 50 MG/ML VIAL IV PRN (20:44)
[2018-02-09] MEDS ORDERED: TAMSULOSIN HCL 0.4 MG CAP PO SCH (21:00)
[2018-02-09] MEDS ORDERED: AMITRIPTYLINE HCL 50 MG TAB PO SCH (21:00)
[2018-02-09] MEDS ORDERED: LOSARTAN POTASSIUM 50 MG TAB PO SCH (21:00)
--- NOTE | 2018-02-09 22:16 | Urology Consultation ---
Date of Consultation February 09, 2018 History of Present Illness Attending Physician: Gaby Razo MD 52 y/o Female with hx of kidney stones. Presented to ED this afternoon with left sided flank pain. 11/22. Compared to child . She has been feeling something like a kidney stone for the last month but today it got worse. In the ED a CT scan was performed with showed a 5mm mid ureteral stone with mild hydro. Pt also reported a fever. UA susp for infx. Pt was admitted to hospitalist service after Urology consulted. Hx of stones. Many years ago she underwent ESWL with success. Since then she has passed several stones on her own. She has not established care with a local urologist. Currently pt is resting comfortably. Her pain is much better controlled. No more nausea. Voiding with out difficulty. No hematuria. No dysuria. Allergies Allergy/AdvReac Type Severity Reaction Status Date / Time paroxetine Allergy Intermediate nauseous Verified 02/09/18 14:00 butorphanol Allergy Unknown nauseous Verified 02/09/18 14:00 cortisone Allergy Unknown HIVES,facial Verified 02/09/18 14:00 swelling Sulfa (Sulfonamide Allergy Unknown Unknown Verified 02/09/18 14:00 Antibiotics) morphine AdvReac Mild nauesous Verified 02/09/18 14:00 iodine AdvReac Unknown itch Verified 02/09/18 14:00 Home Medications Home Medications Medication Instructions Recorded Confirmed Type amitriptyline 75 mg PO HS 12/13/17 02/09/18 History qostitdbbt-audnczklsu-cho-cod 1 cap PO Q6H PRN 12/13/17 02/09/18 History cyclobenzaprine 5 - 10 mg PO Q12H PRN 12/13/17 02/09/18 History escitalopram oxalate 20 mg PO QAM 12/13/17 02/09/18 History levothyroxine 175 mcg PO QAM 12/13/17 02/09/18 History losartan 50 mg PO HS 12/13/17 02/09/18 History propranolol 160 mg PO QAM 12/13/17 02/09/18 History diclofenac sodium 50 mg PO TID PRN 02/09/18 02/09/18 History tizanidine 4 mg PO TID 02/09/18 02/09/18 History Patient History Medical History UTI (urinary tract infection) Obesity (BMI 30-39.9) Left nephrolithiasis Benign essential HTN History of kidney stones Injury of right lower arm (Acute) Hip injury (Acute) Head injury (Acute) Fall (Acute) Migraine (Acute) HTN (hypertension) (Chronic) Acute kidney injury (Acute 04/03/14) Acute pyelonephritis (Acute 04/03/14) Atypical migraine (Acute) Cephalgia (Acute) Concussion (Acute) Contusion of multiple sites (Acute) Headache (Acute) Hypokalemia (Acute) Intractable headache (Acute) Positive D dimer (Acute) Renal insufficiency (Acute) Kidney stones Surgical History H/O lithotripsy Social History marital status: Current Living Situation: Spouse Other Information That Helps Us Care for You: No Feels Safe at Home: Yes Safety Concerns: Feels Safe At This Time Smoking Status: Never smoker Do You Dip or Chew Tobacco: No Second Hand Exposure: No Tobacco Cessation Education Requested by Patient: No Hx Alcohol Use: Yes Alcohol type: hard liquor Alcohol Intake Frequency: holidays/special occasions only Hx Substance Use: No Beliefs That Will Affect Care: None Preferred Language: Japanese Communication Ability: Effective Pediatric Physical Therapy Assistant Required: No Review of Systems Constitutional: + fever and + chills Eyes: no corrective lenses Ear, Nose, Mouth, Throat: no dizziness Respiratory: no cough Cardiovascular: no chest pain Gastrointestinal: + abdominal pain Genitourinary (Female): + urinary frequency; no dysuria Musculoskeletal: + back pain Integumentary: no rash Neurologic: no numbness Psychiatric: no behavioral changes Physical Exam 2 Vital Signs (Past 24 Hours): Last Vital Signs Temp 36.7 C 02/09/18 18:33 Pulse 105 H 02/09/18 18:33 Resp 18 02/09/18 18:33 BP 147/81 H 02/09/18 18:33 Pulse Ox 97 02/09/18 18:33 Constitutional: WD/WN, vitals as above healthy appearing Neck: trachea midline Respiratory: Auscultation: lungs clear to auscultation bilaterally Cardiovascular: Heart Sounds: normal S1 and normal S2 Extremities: normal capillary refill Gastrointestinal (Abdomen): Percussion/Palpation: abdomen soft; no guarding Musculoskeletal: Head/Neck/Chest: normocephalic and neck supple Skin: no rashes Neurologic: awake Genitourinary: + CVA tenderness
[2018-02-10] MEDS: DiphenhydrAMINE HCL 50 MG/ML VIAL IV PRN (03:32)
[2018-02-10] MEDS: SODIUM CHLORIDE 0.9% 1000ML 1,000 ML IV SCH ×2 (03:33→11:38)
[2018-02-10] MEDS: METOCLOPRAMIDE HCL INJ 5 MG/ML 2 ML VIAL IV PRN (03:33)
[2018-02-10] MEDS ORDERED: cefTRIAXone SODIUM 1,000 MG/50 ML BAG IV SCH ×2 (05:00→16:00)
[2018-02-10 06:18] LABS: Hematocrit (blood only) 31.9 % (37-47); Hemoglobin 10.8 g/dL (12.0-16.0); Mean Corpuscular Hgb Conc 33.9 g/dL (32-36); Mean Corpuscular Volume 93.3 fL (80-100); Mean Platelet Volume 8.7 fL (7.4-10.4); Platelet Count 193 K/uL (130-400); RDW Coefficient of Variation 13.4 % (11.5-14.5); RDW Standard Deviation 45.3 fL (36.4-46.3); Red Blood Count 3.42 M/uL (4.2-5.4); White Blood Count 11.73 K/uL (4.8-10.8)
[2018-02-10] MEDS: KETOROLAC TROMETHAMINE 15 MG/ML VIAL IV PRN (06:18)
[2018-02-10] MEDS ORDERED: LEVOTHYROXINE SODIUM 175 MCG TABLET PO SCH (06:30)
[2018-02-10 07:07] LABS: Albumin Globulin Ratio 0.8 (0.9-2); Albumin Level 3.3 gm/dl (3.4-5.0); BUN Creatinine Ratio 16.1 (10-20); Bilirubin,Total 0.8 mg/dl (0.1-1); Calcium 8.1 mg/dl (8.5-10.1); Creatinine Clr Calc Pharmacy 69.9 ml/min; Est GFR (African American) 77.8; Est GFR (Non-African American) 67.2; Potassium 3.8 mmol/L (3.5-5.1); Total Protein 7.3 gm/dl (6.4-8.2)
[2018-02-10] MEDS ORDERED: ESCITALOPRAM OXALATE 20 MG TAB PO SCH (09:00)
[2018-02-10] MEDS ORDERED: PROPRANOLOL HCL LA 80 MG CAPCR PO SCH (09:00)
--- NOTE | 2018-02-10 10:08 | Urology Progress Note ---
Date of Service February 10, 2018 Doing well. No acute events. Pain under control. Given toradol last night which helped. Voiding normally. No nausea. Pt wished to go home and try to pass the stone on her own. Assessment & Plan (1) Left ureteral calculus: 5mm mid ureteral stone. Not completely obstructing. May be able to pass it on her own. DC home today with pain meds, zofran, and abx. F/U 1 week with KUB. (2) Urinary tract infection: Follow up cultures. Continue abx for 7-10 days after discharge. Can f/u as outpatient with repeat culture to make sure it has cleared. Subjective Constitutional: + fever and + chills Gastrointestinal: + abdominal pain Genitourinary (Female): + urinary frequency; no dysuria Musculoskeletal: + back pain Physical Exam 2 Vital Signs (Past 24 Hours): Last Vital Signs Temp 36.8 C 02/10/18 06:57 Pulse 101 H 02/10/18 06:57 Resp 17 02/10/18 06:57 BP 127/75 02/10/18 06:57 Pulse Ox 96 02/10/18 06:57 Constitutional: WD/WN, vitals as above healthy appearing Neck: trachea midline Respiratory: Auscultation: lungs clear to auscultation bilaterally Cardiovascular: Heart Sounds: normal S1 and normal S2 Extremities: normal capillary refill Gastrointestinal (Abdomen): Percussion/Palpation: abdomen soft; no guarding Musculoskeletal: Head/Neck/Chest: normocephalic and neck supple Skin: no rashes Neurologic: awake Genitourinary: + CVA tenderness _ (1) Urinary tract infection Encounter type: Hematuria presence: with hematuria Indwelling urinary catheter type: Urinary tract infection type: site unspecified Qualified Code( s): N39.0 - Urinary tract infection, site not specified; R31.9 - Hematuria, unspecified
--- NOTE | 2018-02-10 12:04 | Discharge Summary ---
Date of Service February 10, 2018 Admission HPI Per Admitting Provider This is a 52 yo F with PMHx of nephrolithiasis, HTN, acquired hypothyroidism, and migraines who presents to the ER today with increasing worsening left-sided flank pain relatable to childbirth, nausea, dry heaves, sweats and chills times 1 day. Patient notes she was seen here about 1 month ago in the ER for similar symptoms however was treated with Cipro for at least 1 week as there were no findings of nephrolithiasis on imaging. Today CT of the abdomen/pelvis shows a left-sided hydroureteronephrosis secondary to a 5 x 4 x 6 mm calculus of the mid left ureter at the level of the L4-L5 disc space. Patient has received pain medication in the ER which has dropped her pain to a 6/10. She does report being hungry currently. Patient notes that she did have lithotripsy one time in early , but is currently not established with a urologist. No WBC, Tmax of 38, UA appears grossly positive Principal Diagnosis Left ureterolithiasis, UTI Discharge Exam Constitutional WD/WN, vitals as above Eyes PERRL, conjunctivae normal, anicteric sclerae ENMT external ear and nose normal, oropharynx normal Neck trachea midline, no thyromegaly Respiratory normal respiratory effort, lungs clear to auscultation Cardiovascular RRR, no murmur, no edema Gastrointestinal (Abdomen) normal bowel sounds, soft, nontender, no hepatosplenomegaly Percussion/Palpation: + abdomen tender (+Left CVA tenderness) Musculoskeletal Extremities: extremities normal to inspection; no cyanosis and no clubbing Skin no rashes, warm and dry Neurologic moves all extremities and awake; no focal motor deficits Psychiatric A+Ox3, euthymic affect Discharge Data Allergies Allergy/AdvReac Type Severity Reaction Status Date / Time paroxetine Allergy Intermediate nauseous Verified 02/09/18 14:00 butorphanol Allergy Unknown nauseous Verified 02/09/18 14:00 cortisone Allergy Unknown HIVES,facial Verified 02/09/18 14:00 swelling Sulfa (Sulfonamide Allergy Unknown Unknown Verified 02/09/18 14:00 Antibiotics) morphine AdvReac Mild nauesous Verified 02/09/18 14:00 iodine AdvReac Unknown itch Verified 02/09/18 14:00 Consultations Urology Ordered Studies 02/09/18 13:36 US renal/blad retro comp Stat 02/09/18 16:42 CT abd pelvis wo con Stat Hospital Course (1) Left nephrolithiasis: This pt is a 52 yo female with left ureterolithiasis and hydronephrosis, with UTI and acute pyelonephritis on UA and CT abd/pel. CT ABD/pelvis showing 4 x 5 x 6 mm stone in mid left ureter with mild-mod hydronephrosis Seen by Urology here -was treated with IVFs, pain control, Flomax -Stone likely to pass on its own Was much improved as far as pain control went on the day of discharge, but still having 6/10 left flank pain that was manageable. She wants to go home to try to pass her stone. -dc to home with Flomax, encouraged plenty of IVFs,Cipro 500mg po bid x total 10 days, f/u Ur cx result can be done by PCP as outpatient -gave Rx for Percocet prn pain -should follow up with [facility] (saw Dr. Chance covering for [facility] in the hospital) with repeat KUB in 1 week (2) History of kidney stones: -Patient has received lithotripsy one time in the past, early (3) UTI (urinary tract infection): - Follow UCx and sensitivities after discharge, received one dose of ceftriaxone here and will dc on po Cipro. (4) Migraine: -follows with Dr. Henderson as an outpatient. Migraine triggered here by nausea and poor po intake, acute illness, and pain --continue Elavil for prophylaxis, prn diclofenac and Fioricet, and Flexeril in the setting of neck stiffness causing cervicogenic headaches. -was treated here with IV Reglan,Benadryl, and Toradol which gave her significant relief -give Rx for outpt po reglan, benadryl (5) Benign essential HTN: BPs controlled here -Continue losartan 50 mg p.o. at bedtime, propranolol 220 mg every morning (6) Obesity (BMI 30-39.9): - Diet and exercise for weight loss is recommended (7) Hypothyroidism: stable -continue levothyroxine (8) Fibromyalgia: recently started on Cymbalta 20mg and is actually NOT on Lexapro anymore- corrected this on home med rec prior to discharge -continue Cymbalta 20mg and titrate up for improved effect (9) DVT prophylaxis: teds, scds, no chemical anticoagulation was given in case of need for Urological procedure Dispo-stable for dc to home Total Time Total Time Spent Total Time Spent (In Minutes): >30 min Total Time Includes: Examination of the Patient, Discharge Planning and Medication Reconciliation Discharge Plan Discharge Items Patient Disposition: Home - Self-Care Reason For Visit: L NEPHROLITHIASIS Discharge Diagnosis: Left ureterolithiasis, UTI Condition: Good Discharge Goals: Decrease discomfort, Diagnostic testing and Therapeutic intervention Activity: Resume your previous activity Lifting: Gradually increase as tolerated Bathing: No limitations Exercise/Sports: Gradually increase as tolerated Driving/Machine Use Comment: No driving if taking oxycodone Non-emergency contact: Primary Care Provider and Urologist Call non-emergency contact if: you have any medication questions, your symptoms worsen, your pain is not controlled, your pain is worsening, your pain is unusual for you, your pain is concerning for you and your temperature is above 100.5 Follow-up/Referrals: Sangeeta Tejeda MD [Primary Care Provider] - (Please keep your follow up appointment as scheduled within 2 weeks) Catarina Hightower MD [Physician] - (Please call for an appointment within 1 week. You were recommended to have a repeat xray of your abdomen at that time.) Diet: Heart Healthy Addtl Provider Instructions: You were admitted with a kidney stone stuck in your left ureter (the tube connecting your kidney to your bladder). You were treated with antibiotics for your urine infection, Flomax to help the stone pass, IV fluids to flush out the stone, and pain medication. You had improvement in your symptoms, but the stone is likely still there given that you are still having pain. You can go home and try to pass the stone at home. Make sure you drink plenty of fluids (water), take the Flomax, the Cipro for the antibiotic. You can take oxycodone/APAP (Percocet) as needed for severe pain. Please follow up with the Urologist within 1 week with a repeat xray at that time. Please have your primary care doctor follow up on the results of your urine culture to make sure the antibiotic you're on is effective. Prescriptions: New diphenhydramine HCl [Benadryl Allergy] 25 mg tablet 25 mg PO Q8H PRN (Reason: migraine headache) Qty: 10 RF: 0 metoclopramide HCl 10 mg tablet 10 mg PO Q8H PRN (Reason: migraine headache) Qty: 15 RF: 0 tamsulosin 0.4 mg Capsule 0.4 mg PO HS Qty: 14 RF: 0 oxycodone-acetaminophen [Percocet] 5-325 mg tablet 1 - 2 tab PO Q6H PRN (Reason: pain) Qty: 20 RF: 0 ciprofloxacin HCl [Cipro] 500 mg tablet 500 mg PO BID Qty: 18 RF: 0 Continue losartan 50 mg tablet 50 mg PO HS RF: 0 levothyroxine 175 mcg tablet 175 mcg PO QAM RF: 0 propranolol 160 mg capsule,extended release 24 hr 160 mg PO QAM RF: 0 amitriptyline 100 mg tablet 50 mg PO HS RF: 0 cyclobenzaprine 5 mg tablet 5 - 10 mg PO Q12H PRN (Reason: Muscle Spasm) RF: 0 cfdcogrwps-jmfnbhkvyx-cba-cod [id number] mg capsule 1 cap PO Q6H PRN (Reason: Migraine Headache) RF: 0 diclofenac sodium 50 mg 50 mg PO TID PRN (Reason: Headache) RF: 0 propranolol 60 mg capsule,extended release 24 hr RF: 0 duloxetine 20 mg capsule,delayed release(DR/EC) 20 mg PO DAILY RF: 0 Visit Report Forms: [facility] Portal Stand-Alone Forms: [facility] Discharge Orders: Discharge Order (Routine); Ordered 02/10/18 Ordered By: Gaby Razo Admission Data Admit Date/Time: 02/09/18 18:02 Attending Provider: Gaby Razo Admit Provider: Gaby Razo Primary Care Provider: Sangeeta Tejeda Other Providers: Gaby Razo ; Bg Fuentes II Service: Surgical Services Other Interventions: Discharge Summary Assessment (RN) Last Done: 02/10/18 12:15 Pending Studies at Discharge: Yes Studies:: Final Urine Culture result DC Date/Time DO NOT enter until pt leaves facility: 02/10/18 14:21
== END 2018-02-10 14:21 | disposition home or self-care (01) | DRG 690 ==
LOC: ED 13:10 → 3N 18:02

== ENCOUNTER 2019-02-20 09:27 | Inpatient (IN) ==
[2019-02-20] MEDS ORDERED: SODIUM CHLORIDE 0.9% 1000ML 1,000 ML IV ONE ×2 (10:00→11:08)
[2019-02-20] MEDS ORDERED: PROCHLORPERAZINE 2 ML IV ONE (10:00)
[2019-02-20] MEDS ORDERED: ACETAMINOPHEN 1,000 MG/100 ML VIAL IV STA (10:00)
[2019-02-20] MEDS ORDERED: DEXAMETHASONE SOD PHOSPHATE 10 MG in SYRINGE 0 ML IV STA (10:00)
[2019-02-20] MEDS ORDERED: DiphenhydrAMINE HCL 50 MG/ML VIAL IV STA (10:00)
[2019-02-20] MEDS ORDERED: DEXAMETHASONE **PF** INJ 10 MG/ML VIAL ONE (10:10)
[2019-02-20 10:24] LABS: Basophils # (auto) 0.01 K/uL (0-0.2); Basophils % (auto) 0.1 %; Eosinophils # (auto) 0.06 K/uL (0-0.5); Eosinophils % (auto) 0.5 %; Hematocrit (blood only) 37.9 % (37-47); Hemoglobin 12.7 g/dL (12.0-16.0); Immature Granulocytes # (auto) 0.02 K/uL (0.00-0.02); Immature Granulocytes % (auto) 0.2 %; Lymphocytes # (auto) 0.95 K/uL (1.2-3.4); Lymphocytes % (auto) 8.3 %; Mean Corpuscular Hemoglobin 30.7 pg (25-34); Mean Corpuscular Hgb Conc 33.5 g/dL (32-36); Mean Corpuscular Volume 91.5 fL (80-100); Mean Platelet Volume 8.9 fL (7.4-10.4); Monocytes % (auto) 3.5 %; Neutrophils # (auto) 10.02 K/uL (1.4-6.5); Neutrophils % (auto) 87.4 %; Platelet Count 254 K/uL (130-400); RDW Standard Deviation 43.5 fL (36.4-46.3); Red Blood Count 4.14 M/uL (4.2-5.4); White Blood Count 11.46 K/uL (4.8-10.8)
--- NOTE | 2019-02-20 10:25 | Electrocardiogram Report ---
Test Reason : Blood Pressure : / mmHG Vent. Rate : 088 BPM Atrial Rate : 088 BPM P-R Int : 192 ms QRS Dur : 092 ms QT Int : 344 ms P-R-T Axes : 062 025 101 degrees QTc Int : 416 ms Poor data quality, interpretation may be adversely affected Normal sinus rhythm Abnormal ECG When compared with ECG of 28-MAY-2018 21:48, Non-specific change in ST segment in Lateral leads Confirmed by Laron Ibarra ([id number]) on 02/20/2019 10:25:41 AM Referred By: REFERRED SELF Confirmed By:Laron Ibarra
[2019-02-20 10:31] LABS: Appearance Urine Cloudy (Clear); Bacteria Urine Automated Negative (Negative); Bilirubin Urine Negative (Negative); Blood Urine Negative (Negative); Color Urine Yellow; Epithelial Cell Urine Auto >30 /lpf (0-5); Glucose Urine UA Negative (Negative); Ketones Urine Negative (Negative); Leukocyte Esterase Urine Negative (Negative); Nitrite Urine Negative (Negative); Protein Urine Negative (Negative); RBC Urine Automated 0-4 /hpf (0-4); Specific Gravity Urine 1.014 (1.000-1.030); Urobilinogen Urine Negative (Negative)
--- NOTE | 2019-02-20 10:44 | XRay Report ---
XR chest 1V portable CLINICAL HISTORY: Chest Pain COMPARISON STUDY: Chest radiograph May 28, 2018. FINDINGS: Lung volumes are normal. Lungs are clear. There is no pneumothorax or pleural effusion. Car diac size is normal. Mediastinal contours are normal. There is no evidence for pulmonary edema. IMPRESSION: No acute cardiopulmonary findings. ACT 112: Negative or not required by law. Electronically signed by: Anjel Meza M.D. 02/20/2019 10:42 AM
[2019-02-20 11:02] LABS: Alanine Aminotransferase 20 U/L (12-78); Albumin Level 4.4 gm/dl (3.4-5.0); Alkaline Phosphatase 137 U/L (45-117); Aspartate Aminotransferase 17 U/L (15-37); Bilirubin,Total 0.7 mg/dl (0.2-1); Blood Urea Nitrogen 18 mg/dl (7-18); Calcium 12.2 mg/dl (8.5-10.1); Carbon Dioxide 30 mmol/L (21-32); Chloride 96 mmol/L (98-107); Creatinine Clr Calc Pharmacy 51.3 ml/min; Est GFR (African American) 49.6; Est GFR (Non-African American) 42.8; Globulin 4.6 gm/dl (2.5-4.0); Glucose 98 mg/dl (70-99); Lipase 62 U/L (73-393); Magnesium 2.1 mg/dl (1.8-2.4); Phosphorus 4.4 mg/dl (2.5-4.9); Sodium 133 mmol/L (136-145); Troponin I < 0.015 ng/ml (0-0.045)
[2019-02-20 11:21] LABS: Lyme Ab IgG w/WB Rflx Negative (Negative); Lyme Ab IgM w/WB Rflx Negative (Negative)
[2019-02-20] MEDS ORDERED: OPTIRAY 320 125ml IV PRN (11:44)
--- NOTE | 2019-02-20 12:03 | CT Scan Report ---
CT angio neck with con CLINICAL HISTORY: [place], confusion, word finding difficulty POSSIBLE ACUTE STROKE COMPARISON STUDY: No previous studies for comparison. TECHNIQUE: CT angiography was performed from the aortic arch to the skull base. MIP imaging was perfo rmed. The patient was scanned in a dynamic helical fashion during intravenous administration of 120 c c of Optiray 320. A dose lowering technique was utilized adhering to the principles of ALARA. CT DOSE: Technique: CT angiogram of the carotid and vertebral arteries was obtained using intravenous contrast and 3-D reconstruction. NASCET criteria was utilized. Findings: The right carotid revealed no evidence of aneurysm and no evidence of dissection. There is no evidenc e of hemodynamic significant stenosis. The left carotid revealed no evidence of hemodynamic significant stenosis. There is no evidence of an eurysm. There is no evidence of dissection. There is no evidence of hemodynamically significant vertebral stenosis. There is no evidence of verte bral dissection. IMPRESSION: No evidence of hemodynamically significant carotid or vertebral artery stenosis. No evidence of disse ction. ACT 112: Negative or not required by law. Electronically signed by: Brenton Prieto M.D. 02/20/2019 12:01 PM
--- NOTE | 2019-02-20 12:05 | CT Scan Report ---
CT OF THE HEAD WITHOUT CONTRAST CLINICAL HISTORY: [place], confusion, word finding difficulty COMPARISON STUDY: Head CT May 28, 2018. TECHNIQUE: Helical axial images of the head were obtained without IV contrast. Automated exposure con trol was utilized for the study. A dose lowering technique was utilized adhering to the principles o f ALARA. FINDINGS: No acute intracranial hemorrhage, midline shift or mass effect is present. The ventricular system is unremarkable. The basilar cisterns are patent. No extra-axial collections are present. Ther e are no findings to suggest acute dural sinus thrombosis or acute territorial infarct. No significan t calvarial abnormalities are present. Visualized portions of the sinuses and mastoid air cells are c lear. Minimal white matter hypodensities are unchanged. IMPRESSION: No acute intracranial findings. ACT 112: Negative or not required by law. Electronically signed by: Anjel Meza M.D. 02/20/2019 12:04 PM
--- NOTE | 2019-02-20 12:06 | CT Scan Report ---
CT angio head w con CLINICAL HISTORY: 53 years-old Female presenting with [place], confusion, word finding difficulty. TECHNIQUE: Multidetector CT angiography of the head was performed after the administration of intrave nous contrast. 3-D volumetric and/or maximum intensity projection (MIP) images were subsequently liban nstructed for review. IV contrast: 120 mL of Optiray 320. One or more dose lowering techniques were u sed consistent with the principles of ALARA (as low as reasonably achievable), including automatic ex posure control, mA or kV adjustment to individual patient size, and/or use of iterative reconstructio n. COMPARISON: None. CT DOSE (mGy.cm): The estimated cumulative dose is 1691.77 mGy.cm. FINDINGS: [employer] Der[employer] Operator topogram: Unremarkable. Anterior circulation: Intracranial portions of the internal carotid arteries patent to the level of t he termini. Aplastic or hypoplastic A1 segment of the left anterior cerebral artery (VAN). Right VAN patent. Middle cerebral arteries patent. Anterior communicating artery patent. Posterior circulation: Codominant vertebral arteries. Intradural portions of the vertebral arteries p atent. Posterior inferior cerebellar arteries patent. Basilar artery patent. Anterior inferior cerebe llar arteries poorly visualized. Superior cerebellar arteries patent. Posterior cerebral arteries pat ent. Posterior communicating arteries hypoplastic or aplastic. Dural venous sinuses: Patent. Other: Allowing for the phase of contrast, brain parenchyma within normal limits. Calvarium intact. IMPRESSION: 1. No evidence of aneurysm, focal vessel occlusion, or significant stenosis of the intracranial donald brianne. ACT 112: Negative or not required by law. Electronically signed by: Bijan Blackman M.D. 02/20/2019 12:05 PM
--- NOTE | 2019-02-20 15:11 | History & Physical Report ---
Date of Service February 20, 2019 Assessment & Plan (1) Hypercalcemia: Admit to [facility] on telemetry Vital signs every 4 hours Continue generous IV fluid hydration Continue monitoring calcium closely Calcium improved from 12.2-9.6 after 3 L of fluids IV PTH normal 27.2 Low vitamin D 12.2 and should be above 30. Start vitamin D DVT prophylaxis Lovenox 40 mg subcu daily Full code Present on Admission?: Yes (2) Acute confusion: Resolved. CT of the head without contrast and CTA head and neck- no acute findings Present on Admission?: Yes (3) Acute renal insufficiency: Most likely due to migraine headache and hypercalcemia. Resolved in the afternoon Present on Admission?: Yes (4) Fibromyalgia: Patient does not have complaints at this time. 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 Sameer Suresh and he recommended to continue the same dose of levothyroxine 175 MCG's p.o. every morning. Patient should follow-up with her curb and gutter laborer and repeat TSH in 6 weeks. Present on Admission?: Yes (6) Obesity (BMI 30-39.9): Patient advised to try to lose weight and change her lifestyle/diet and exercises. Present on Admission?: Yes (7) HTN (hypertension): Blood pressure is well controlled. Continue home medicine propranolol 160 mg p.o. every morning. Continue monitoring every 4 hours Present on Admission?: Yes (8) Migraine: Continue home medicine Percocet 1 tablet p.o. every 8 hours as needed for pain, Rizatriptan 10 mg p.o. every 2 hours as needed, metoclopramide 10 mg p.o. twice daily as needed, gabapentin 600 mg p.o. 4 times daily, amitriptyline 100 mg p.o. nightly, butalbital acetaminophen caffeine 1 capsule p.o. every 6 hours as needed. Present on Admission?: Yes History of Present Illness Chief Complaint: Persistent migraine headache Primary Care Provider: Sangeeta Tejeda MD Patient is a 53 years old female with past medical history of hypothyroidism, migraine headache, benign essential hypertension, nephrolithiasis who presents to the emergency room with a persistent migraine started 2 hours ago. The patient reports that she has a migraine since her young age. She felt confused due to migraine headache and she felt that her left lips are getting numb. Patient reports that suddenly she became weak and she fell to the ground. She adds that she has been stumbling around her house for the past few days. The patient reports that she is nauseous and had chills this morning. Patient reports taking Tums regularly to stop nausea. Sometimes she takes several grams per day. Patient denies fever, chills, chest pain, shortness of breath, abdominal pain, frequency, urgency. Patient reports that she had Graves' disease 25 years ago and her thyroid gland was ablated at that time with radioactive isotope. Since then she is on levothyroxine. EKG is reviewed and shows normal sinus rhythm. ST and T wave abnormalities are nonspecific in comparison to EKG from May 28, 2018. Labs are reviewed: WBC is 11.46, hemoglobin 12.7, hematocrit 37.9, platelets 254, PT 10.1, INR 1, APTT 25.8. Sodium 135, potassium 3.9, chloride 102, BUN 15, creatinine 1.42 with baseline 0.96, GFR baseline 68, today GFR is 42.1. Calcium elevated to 12.2. Ionized calcium 1.17. AST 14, ALT 17, vitamin D12 0.2, TSH 66.8, T4 0.52, PTH 27.2. Urine grossly negative. Lyme disease IgG and IgM negative. Head CT no intracranial findings. Had CTA no evidence of aneurysm, focal vessel occlusion or significant stenosis of the intracranial arteries. CTA of the neck no evidence of hemodynamically significant carotid or vertebral artery stenosis. No evidence of dissection. Chest x-rays no acute cardiopulmonary findings. Decision was made to admit patient to [facility] on telemetry for further evaluation of hypercalcemia and migraine headache. Allergies Allergy/AdvReac Type Severity Reaction Status Date / Time paroxetine Allergy Intermediate nauseous Verified 02/20/19 10:30 butorphanol Allergy Unknown nauseous Verified 02/20/19 10:30 cortisone Allergy Unknown HIVES,facial Verified 02/20/19 10:30 swelling Sulfa (Sulfonamide Allergy Unknown Unknown Verified 02/20/19 10:30 Antibiotics) morphine AdvReac Mild nauesous Verified 02/20/19 10:30 iodine AdvReac Unknown itch Verified 02/20/19 10:30 Home Medications Home Medications Medication Instructions Recorded Confirmed Type amitriptyline 100 mg PO HS 12/13/17 02/20/19 History idcxwhlfgg-gbymwupgmq-ovh-cod 1 cap PO Q6H PRN 12/13/17 02/20/19 History levothyroxine 175 mcg PO QAM 12/13/17 02/20/19 History propranolol 160 mg PO QAM 12/13/17 02/20/19 History diphenhydramine HCl [Benadryl 25 mg PO Q8H PRN #10 tab 02/10/18 02/20/19 Rx Allergy] fremanezumab-vfrm 225 mg/1.5 mL 225 mg SQ .every 30 days #1.5 ml 11/28/18 02/20/19 Rx subcutaneous syringe gabapentin 600 mg tablet 600 mg PO QID tab 11/28/18 02/20/19 History metoclopramide HCl 10 mg tablet 10 mg PO BID PRN #30 tab 11/28/18 02/20/19 Rx rizatriptan 10 mg disintegrating 10 mg PO Q2H PRN #12 tab 11/28/18 02/20/19 Rx tablet oxycodone-acetaminophen [Percocet] 1 tab PO Q8H PRN 02/20/19 02/20/19 History Past Med/Surg History Medical History Acute kidney injury (Acute 04/03/14) Acute pyelonephritis (Acute 04/03/14) Atypical migraine (Acute) Benign essential HTN Cephalgia (Acute) Concussion (Acute) Contusion of multiple sites (Acute) Fall (Acute) Fibromyalgia Head injury (Acute) Headache (Acute) Hip injury (Acute) History of kidney stones HTN (hypertension) (Chronic) Hypokalemia (Acute) Hypothyroidism Injury of right lower arm (Acute) Intractable headache (Acute) Kidney stones Left nephrolithiasis Migraine (Chronic) Obesity (BMI 30-39.9) Positive D dimer (Acute) Renal insufficiency (Acute) UTI (urinary tract infection) Surgical History H/O lithotripsy Family History Other Diabetes Hypertension Migraine Social History Preferred Language: Occitan Communication Ability: Effective Visual Impairment: No Limitations Hearing Ability: Normal Gum Dipper Required: No Beliefs That Will Affect Care: None marital status: Current Living Situation: Spouse Other Information That Helps Us Care for You: No Feels Safe at Home: Yes Safety Concerns: Feels Safe At This Time Smoking Status: Never smoker Do You Dip or Chew Tobacco: No ; Second Hand Exposure: No ; Tobacco Cessation Education Requested by Patient: No Hx Alcohol Use: Yes Alcohol type: hard liquor Hx Substance Use: No Review of Systems Review of Systems: All systems reviewed & are unremarkable except as noted in HPI & below Physical Exam Constitutional: WD/WN, vitals as above well developed and + ill appearing Eyes: PERRL, conjunctivae normal, anicteric sclerae ENMT: external ear and nose normal, oropharynx normal Neck: trachea midline, no thyromegaly Respiratory: normal respiratory effort, lungs clear to auscultation Cardiovascular: RRR, no murmur, no edema Gastrointestinal (Abdomen): normal bowel sounds, soft, nontender, no hepatosplenomegaly Musculoskeletal: no cyanosis or clubbing, extremities motor strength 5/5 Skin: no rashes, warm and dry Neurologic: PERRL, EOMI, accommodation nl, no face palsy, no dysarthria deep tendon reflexes 2+ bilaterally, awake and + confused Complains of migraine headache Psychiatric: A+Ox3, euthymic affect Lymphatic: no cervical or axillary lymphadenopathy Results & Data Vital Signs (Past 12 Hours) Vital Signs Temp Pulse Resp BP Pulse Ox 02/20/19 13:00 77 22 115/77 02/20/19 12:30 78 13 144/78 H 95 02/20/19 12:00 76 17 130/67 98 02/20/19 11:57 78 16 130/64 02/20/19 11:30 75 15 111/54 L 98 02/20/19 11:00 76 16 135/66 98 02/20/19 10:48 127/82 99 02/20/19 10:31 84 19 02/20/19 10:30 83 20 136/69 98 02/20/19 10:01 90 17 99 02/20/19 10:00 90 19 157/88 H 97 02/20/19 09:44 95 H 24 98 02/20/19 09:43 96 H 20 178/100 H 98 02/20/19 09:31 37.1 C 103 H 20 172/90 H 94 Code Status & VTE Plan Code Status Full code VTE Prophylaxis Plan VTE Prophylaxis will be ordered: Yes PG Care Time/CCT Total # of Minutes Spent Total Time Spent with Patient: Total time spent is greater than 50% in coordination of care (as documented) at patient's floor/unit and/or counseling patient:
[2019-02-20] MEDS ORDERED: POLYETHYLENE (MIRALAX) 17 GM PACK PO PRN (16:18)
[2019-02-20] MEDS ORDERED: ALUMINUM/MAGNESIUM SUSP 30 ML UDC PO PRN (16:18)
[2019-02-20] MEDS ORDERED: MAGNESIUM HYDROXIDE SUSP 30 ML UDC PO PRN (16:18)
[2019-02-20] MEDS ORDERED: ACETAMINOPHEN 325 MG TAB PO PRN (16:18)
[2019-02-20] MEDS: OXYCODONE/ACETAMINOPHEN 5mg/325mg TAB PO PRN (16:28)
[2019-02-20] MEDS ORDERED: RIZATRIPTAN BENZOATE 10 MG TAB PO PRN (16:29)
[2019-02-20] MEDS: SODIUM CHLORIDE 0.9% 1000ML 1,000 ML IV SCH (16:57)
[2019-02-20] MEDS: GABAPENTIN 600 MG TAB PO SCH ×2 (16:58→20:52)
[2019-02-20] MEDS: ENOXAPARIN INJ 40 MG/0.4 ML SYR SQ SCH (17:01)
--- NOTE | 2019-02-20 18:25 | Emergency Department Note ---
Entered by Katerina Lyons acting as a scribe for Gurinder Jones MD History of Present Illness General Chief complaint: Neuro Symptoms/Deficit Stated complaint: HYPERTENSION Time Seen by Provider: 02/20/19 09:38 Source: patient History of Present Illness Onset (ago): hour(s) 2 Location: head (migraine) Severity: similar to prior episodes Pain Consistency: + other (persistent) Maximum Pain Intensity: 6 Quality: + other (migraine) Relieved By: + medication (migraine medication) Associated symptoms: + confusion, + fever/chills (Positive chills. Negative fever. ), + headaches, + nausea/vomiting (Positive nausea. Negative vomiting. ), + weakness and + other (Positive lip numbness, stumbling/falling, migraine. Negative congestion.); no cough The patient is a 53 year old female presenting to the Emergency Department complaining of a persistent migraine starting 2 hours ago. The patient reports that she has a migraine. She states that because of her migraine she is becoming confused and cant finish her sentences. She explains that her lips are sometimes numb. She notes that her legs will suddenly become weak and she will fall to the ground. She adds that she has been stumbling around her house for the past few days. The patient reports that she is nauseous and had chills this morning. She states that she has a history of migraines but that she doesnt normally fall and get confused when she has migraines. She explains that she began taking a medication for her migraines in November 2018 that initially onset a severe migraine, but since then has helped her migraines. 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 The patient denies fevers, cough, congestion and vomiting. Home Medications Home Medications Medication Instructions Recorded Confirmed Type amitriptyline 100 mg PO HS 12/13/17 02/20/19 History sffgrpcfjm-qfjzmglzjy-fff-cod 1 cap PO Q6H PRN 12/13/17 02/20/19 History levothyroxine 175 mcg PO QAM 12/13/17 02/20/19 History propranolol 160 mg PO QAM 12/13/17 02/20/19 History diphenhydramine HCl [Benadryl 25 mg PO Q8H PRN #10 tab 02/10/18 02/20/19 Rx Allergy] fremanezumab-vfrm 225 mg/1.5 mL 225 mg SQ .every 30 days #1.5 ml 11/28/18 02/20/19 Rx subcutaneous syringe gabapentin 600 mg tablet 600 mg PO QID tab 11/28/18 02/20/19 History metoclopramide HCl 10 mg tablet 10 mg PO BID PRN #30 tab 11/28/18 02/20/19 Rx rizatriptan 10 mg disintegrating 10 mg PO Q2H PRN #12 tab 11/28/18 02/20/19 Rx tablet oxycodone-acetaminophen [Percocet] 1 tab PO Q8H PRN 02/20/19 02/20/19 History Allergies Allergy/AdvReac Type Severity Reaction Status Date / Time paroxetine Allergy Intermediate nauseous Verified 02/20/19 10:30 butorphanol Allergy Unknown nauseous Verified 02/20/19 10:30 cortisone Allergy Unknown HIVES,facial Verified 02/20/19 10:30 swelling Sulfa (Sulfonamide Allergy Unknown Unknown Verified 02/20/19 10:30 Antibiotics) morphine AdvReac Mild nauesous Verified 02/20/19 10:30 iodine AdvReac Unknown itch Verified 02/20/19 10:30 Past Med/Surg History Medical History Acute kidney injury (Acute 04/03/14) Acute pyelonephritis (Acute 04/03/14) Atypical migraine (Acute) Benign essential HTN Cephalgia (Acute) Concussion (Acute) Contusion of multiple sites (Acute) Fall (Acute) Fibromyalgia Head injury (Acute) Headache (Acute) Hip injury (Acute) History of kidney stones HTN (hypertension) (Chronic) Hypokalemia (Acute) Hypothyroidism Injury of right lower arm (Acute) Intractable headache (Acute) Kidney stones Left nephrolithiasis Migraine (Chronic) Obesity (BMI 30-39.9) Positive D dimer (Acute) Renal insufficiency (Acute) UTI (urinary tract infection) Surgical History H/O lithotripsy Family History Other Diabetes Hypertension Migraine Social History Preferred Language: [place] Communication Ability: Effective Visual Impairment: No Limitations Hearing Ability: Normal Biometrics Experimentalist Required: No Beliefs That Will Affect Care: None marital status: Current Living Situation: Spouse Other Information That Helps Us Care for You: No Feels Safe at Home: Yes Safety Concerns: Feels Safe At This Time Smoking Status: Never smoker Do You Dip or Chew Tobacco: No ; Second Hand Exposure: No ; Tobacco Cessation Education Requested by Patient: No Hx Alcohol Use: Yes Alcohol type: hard liquor Hx Substance Use: No Review of Systems See HPI for pertinent positives & negatives. and A total of 10 systems reviewed and were otherwise negative Physical Exam Vital Signs Vital Signs - 24 hr 02/20/19 09:31 02/20/19 09:43 02/20/19 09:44 Temperature 37.1 C Temperature Source Oral Pulse Rate 103 H 96 H 95 H Pulse Rate from SpO2 Sensor 95 H 95 H Respiratory Rate 20 20 24 Respiratory Effort / Characteristics Non-Labored Spontaneous Respiratory Depth Normal Blood Pressure 172/90 H 178/100 H Blood Pressure Mean 117 114 Pulse Oximetry 94 98 98 Oxygen Delivery Method Room Air Sepsis Recent Fever Within 48 Hours No Sepsis New/Unexplained Change in Mental Status No Sepsis Action Taken by Nursing No Action Required 02/20/19 10:00 02/20/19 10:01 02/20/19 10:30 Temperature Temperature Source Pulse Rate 90 90 83 Pulse Rate from SpO2 Sensor 90 90 83 Respiratory Rate 19 17 20 Respiratory Effort / Characteristics Respiratory Depth Blood Pressure 157/88 H 136/69 Blood Pressure Mean 106 81 Pulse Oximetry 97 99 98 Oxygen Delivery Method Sepsis Recent Fever Within 48 Hours Sepsis New/Unexplained Change in Mental Status Sepsis Action Taken by Nursing 02/20/19 10:31 02/20/19 10:48 02/20/19 11:00 Temperature Temperature Source Pulse Rate 84 76 Pulse Rate from SpO2 Sensor 83 76 Respiratory Rate 19 16 Respiratory Effort / Characteristics Respiratory Depth Blood Pressure 127/82 135/66 Blood Pressure Mean 85 78 Pulse Oximetry 99 98 Oxygen Delivery Method Sepsis Recent Fever Within 48 Hours Sepsis New/Unexplained Change in Mental Status Sepsis Action Taken by Nursing 02/20/19 11:30 02/20/19 11:57 02/20/19 12:00 Temperature Temperature Source Pulse Rate 75 78 76 Pulse Rate from SpO2 Sensor 75 76 Respiratory Rate 15 16 17 Respiratory Effort / Characteristics Respiratory Depth Blood Pressure 111/54 L 130/64 130/67 Blood Pressure Mean 81 108 80 Pulse Oximetry 98 98 Oxygen Delivery Method Sepsis Recent Fever Within 48 Hours Sepsis New/Unexplained Change in Mental Status Sepsis Action Taken by Nursing 02/20/19 12:30 02/20/19 13:00 02/20/19 13:30 Temperature Temperature Source Pulse Rate 78 77 76 Pulse Rate from SpO2 Sensor 78 77 Respiratory Rate 13 22 10 L Respiratory Effort / Characteristics Respiratory Depth Blood Pressure 144/78 H 115/77 140/82 Blood Pressure Mean 96 103 99 Pulse Oximetry 95 92 Oxygen Delivery Method Sepsis Recent Fever Within 48 Hours Sepsis New/Unexplained Change in Mental Status Sepsis Action Taken by Nursing 02/20/19 14:00 02/20/19 14:30 02/20/19 15:00 Temperature Temperature Source Pulse Rate 75 74 76 Pulse Rate from SpO2 Sensor 75 Respiratory Rate 15 15 17 Respiratory Effort / Characteristics Respiratory Depth Blood Pressure 141/86 H 126/87 124/68 Blood Pressure Mean 94 102 81 Pulse Oximetry 97 96 Oxygen Delivery Method Sepsis Recent Fever Within 48 Hours Sepsis New/Unexplained Change in Mental Status Sepsis Action Taken by Nursing GENERAL: Awake, alert, fatigued-appearing, in no distress HENT: Normocephalic, atraumatic. Oropharynx with dry mucous membranes and otherwise unremarkable. . EYES: Normal conjunctiva. Sclera non-icteric. EOMI. No nystamgus. PEARRL. NECK: Supple. No nuchal rigidity. FROM. No JVD. RESPIRATORY: CTAB. CARDIAC: Regular rate, normal rhythm. Extremities warm and well perfused. Pulses equal. ABDOMEN: Soft, non-distended. No tenderness to palpation. No rebound or guarding. No masses. RECTAL: Deferred. MUSCULOSKELETAL: Chest examination reveals no tenderness. The back is symmetrical on inspection without obvious abnormality. There is no CVA tende rness to palpation. No joint edema. LOWER EXTREMITIES: Calves are equal size bilaterally and non-tender. No edema. No discoloration. NEURO: Normal sensorium. No sensory or motor deficits noted. Normal cerebellar function including finger to nose, alternating palms and heal to woody. 5/5 strength. SILT x 4 extremities. Fluent speech. Normal reflexes. SKIN: No rash or jaundice noted. Course Course 951: The patient was evaluated in room A11B, and a complete history and physical examination were performed. 1310: I updated the patient and her family at this time. 1318: I discussed the patient's case with Dr. Scott [facility] hospitalist. She will evaluate the patient for further management. Administered Medications Acetaminophen (Tylenol) 650 mg PO Q4H PRN PRN Reason: Pain or Fever Stop: 03/22/19 16:17 Last Admin: 02/20/19 19:29 Dose: 650 mg Documented by: [id number] Amitriptyline HCl (Elavil) 100 mg PO HS QUENTIN Stop: 03/22/19 20:59 Last Admin: 02/20/19 20:52 Dose: 100 mg Documented by: [id number] Enoxaparin Sodium (Lovenox) 40 mg SQ Q24H QUENTIN Stop: 03/22/19 17:59 Last Admin: 02/20/19 17:01 Dose: 40 mg Documented by: [id number] Gabapentin (Neurontin) 600 mg PO QID QUENTIN Stop: 03/22/19 16:59 Last Admin: 02/20/19 20:52 Dose: 600 mg Documented by: [id number] Admin: 02/20/19 16:58 Dose: 600 mg Documented by: [id number] Sodium Chloride (Nss 1000ml) 1,000 mls @ 100 mls/hr IV .Q10H QUENTIN Stop: 03/22/19 16:17 Last Admin: 02/20/19 16:57 Dose: 100 mls/hr Documented by: [id number] Miscellaneous (Order Awaiting Action) 1 ea N/A QS QUENTIN Stop: 03/23/19 00:00 Last Admin: 02/20/19 23:32 Dose: Not Given Documented by: [id number] Oxycodone/Acetaminophen (Percocet 5mg/325mg) 1 tab PO Q8H PRN PRN Reason: Pain Stop: 03/06/19 16:17 Last Admin: 02/20/19 16:28 Dose: 1 tab Documented by: [id number] Discontinued Medications Cyclobenzaprine HCl (Flexeril) 5 mg PO NOW STA Stop: 02/20/19 20:20 Last Admin: 02/20/19 20:52 Dose: 5 mg Documented by: [id number] Dexamethasone Sodium Phosphate (Decadron Pf) Confirm Administered Dose 10 mg .ROUTE .STK-MED ONE Stop: 02/20/19 10:11 Last Admin: 02/20/19 11:09 Dose: 10 mg Documented by: [id number] Diphenhydramine HCl (Benadryl) 25 mg IV NOW STA Stop: 02/20/19 10:01 Last Admin: 02/20/19 10:17 Dose: 25 mg Documented by: [id number] Sodium Chloride (Nss 1000ml) 1,000 mls @ 999 mls/hr IV .Q1H1M ONE Stop: 02/20/19 11:00 Last Infusion: 02/20/19 11:00 Dose: 0 mls/hr Documented by: [id number] Admin: 02/20/19 10:16 Dose: 999 mls/hr Documented by: [id number] Acetaminophen (Ofirmev) 1,000 mg in 100 mls @ 400 mls/hr IV NOW STA Stop: 02/20/19 10:14 Last Infusion: 02/20/19 11:00 Dose: 0 mls/hr Documented by: [id number] Admin: 02/20/19 10:16 Dose: 400 mls/hr Documented by: [id number] Prochlorperazine (Compazine) 2 mls @ 1 mls/min IV ONE ONE Stop: 02/20/19 10:01 Last Admin: 02/20/19 10:19 Dose: 1 mls/min Documented by: [id number] Dexamethasone Sodium Phosphate (10 mg/ Syringe) 2.5 mls @ 1 mls/min IV NOW STA Stop: 02/20/19 10:02 Last Admin: 02/20/19 11:09 Dose: Not Given Documented by: [id number] Sodium Chloride (Nss 1000ml) 1,000 mls @ 999 mls/hr IV .Q1H1M ONE Stop: 02/20/19 12:08 Last Infusion: 02/20/19 12:27 Dose: 0 mls/hr Documented by: [id number] Admin: 02/20/19 11:14 Dose: 999 mls/hr Documented by: [id number] Ioversol (Optiray 320 125ml) 120 ml IV ONCE PRN PRN Reason: Interaction Checking Stop: 02/24/19 11:43 Last Admin: 02/20/19 11:45 Dose: 120 ml Documented by: [id number] Medical Decision Making Differential Diagnosis Differential Diagnosis includes but is not limited to headache, tension headache, cluster headache, migraine, subarachnoid hemorrhage, meningitis, mass, central venous thrombus, concussion, trauma and epidural/subdural hemorrhage. Medical Records Attestation: I reviewed the patient's medical records. Home Medications Current Medication List: was personally reviewed by me Laboratory Data Attestation: I reviewed the patient's lab results. Result diagrams: 02/20/19 10:15 02/20/19 20:03 Lab Results 02/20/19 02/20/19 02/20/19 Range/Units 10:15 10:15 10:15 WBC 11.46 H (4.8-10.8) K/uL RBC 4.14 L (4.2-5.4) M/uL Hgb 12.7 (12.0-16.0) g/dL Hct 37.9 (37-47) % MCV 91.5 (80-100) fL MCH 30.7 (25-34) pg MCHC 33.5 (32-36) g/dL RDW Std Deviation 43.5 (36.4-46.3) fL RDW Coeff of [place] 13.0 (11.5-14.5) % Plt Count 254 (130-400) K/uL MPV 8.9 (7.4-10.4) fL Immature Gran % (Auto) 0.2 % Neut % (Auto) 87.4 % Lymph % (Auto) 8.3 % Emmet % (Auto) 3.5 % Eos % (Auto) 0.5 % Baso % (Auto) 0.1 % Immature Gran # (Auto) 0.02 (0.00-0.02) K/uL Neut # (Auto) 10.02 H (1.4-6.5) K/uL Lymph # (Auto) 0.95 L (1.2-3.4) K/uL Emmet # (Auto) 0.40 (0.11-0.59) K/uL Eos # (Auto) 0.06 (0-0.5) K/uL Baso # (Auto) 0.01 (0-0.2) K/uL Sodium 133 L (136-145) mmol/L Potassium 4.0 (3.5-5.1) mmol/L Chloride 96 L (98-107) mmol/L Carbon Dioxide 30 (21-32) mmol/L Anion Gap 7.0 (3-11) BUN 18 (7-18) mg/dl Creatinine 1.40 H (0.6-1.2) mg/dl Est Cr Clr Drug Dosing 51.3 ml/min Est GFR ( Amer) 49.6 Est GFR (Non-Af Amer) 42.8 BUN/Creatinine Ratio 13.0 (10-20) Glucose 98 (70-99) mg/dl Calcium 12.2 H* (8.5-10.1) mg/dl Phosphorus 4.4 (2.5-4.9) mg/dl Magnesium 2.1 (1.8-2.4) mg/dl Total Bilirubin 0.7 (0.2-1) mg/dl AST 17 (15-37) U/L ALT 20 (12-78) U/L Alkaline Phosphatase 137 H (45-117) U/L Troponin I < 0.015 (0-0.045) ng/ml Total Protein 9.0 H (6.4-8.2) gm/dl Albumin 4.4 (3.4-5.0) gm/dl Globulin 4.6 H (2.5-4.0) gm/dl Albumin/Globulin Ratio 1.0 (0.9-2) Lipase 62 L (73-393) U/L TSH 66.800 H (0.300-4.500) uIu/ml Free T4 (0.8-1.6) ng/dl Urine Color Urine Appearance (Clear) Urine pH (4.5-7.5) Ur Specific [place] (1.000-1.030) Urine Protein (Negative) Urine Glucose (UA) (Negative) Urine Ketones (Negative) Urine Blood (Negative) Urine Nitrite (Negative) Urine Bilirubin (Negative) Urine Urobilinogen (Negative) Ur Leukocyte Esterase (Negative) Urine WBC (Auto) (0-5) /hpf Urine RBC (Auto) (0-4) /hpf U Hyaline Cast (Auto) (0-5) /lpf U Epithel Cells (Auto) (0-5) /lpf Urine Bacteria (Auto) (Negative) Lyme Disease IgG Ab Negative (Negative) Lyme Disease IgM Ab Negative (Negative) 02/20/19 02/20/19 Range/Units 10:15 10:15 WBC (4.8-10.8) K/uL RBC (4.2-5.4) M/uL Hgb (12.0-16.0) g/dL Hct (37-47) % MCV (80-100) fL MCH (25-34) pg MCHC (32-36) g/dL RDW Std Deviation (36.4-46.3) fL RDW Coeff of [place] (11.5-14.5) % Plt Count (130-400) K/uL MPV (7.4-10.4) fL Immature Gran % (Auto) % Neut % (Auto) % Lymph % (Auto) % Emmet % (Auto) % Eos % (Auto) % Baso % (Auto) % Immature Gran # (Auto) (0.00-0.02) K/uL Neut # (Auto) (1.4-6.5) K/uL Lymph # (Auto) (1.2-3.4) K/uL Emmet # (Auto) (0.11-0.59) K/uL Eos # (Auto) (0-0.5) K/uL Baso # (Auto) (0-0.2) K/uL Sodium (136-145) mmol/L Potassium (3.5-5.1) mmol/L Chloride (98-107) mmol/L Carbon Dioxide (21-32) mmol/L Anion Gap (3-11) BUN (7-18) mg/dl Creatinine (0.6-1.2) mg/dl Est Cr Clr Drug Dosing ml/min Est GFR ( Amer) Est GFR (Non-Af Amer) BUN/Creatinine Ratio (10-20) Glucose (70-99) mg/dl Calcium (8.5-10.1) mg/dl Phosphorus (2.5-4.9) mg/dl Magnesium (1.8-2.4) mg/dl Total Bilirubin (0.2-1) mg/dl AST (15-37) U/L ALT (12-78) U/L Alkaline Phosphatase (45-117) U/L Troponin I (0-0.045) ng/ml Total Protein (6.4-8.2) gm/dl Albumin (3.4-5.0) gm/dl Globulin (2.5-4.0) gm/dl Albumin/Globulin Ratio (0.9-2) Lipase (73-393) U/L TSH (0.300-4.500) uIu/ml Free T4 0.52 L (0.8-1.6) ng/dl Urine Color Yellow Urine Appearance Cloudy A (Clear) Urine pH 8.0 H (4.5-7.5) Ur Specific Lawrence 1.014 (1.000-1.030) Urine Protein Negative (Negative) Urine Glucose (UA) Negative (Negative) Urine Ketones Negative (Negative) Urine Blood Negative (Negative) Urine Nitrite Negative (Negative) Urine Bilirubin Negative (Negative) Urine Urobilinogen Negative (Negative) Ur Leukocyte Esterase Negative (Negative) Urine WBC (Auto) 1-5 (0-5) /hpf Urine RBC (Auto) 0-4 (0-4) /hpf U Hyaline Cast (Auto) 1-5 (0-5) /lpf U Epithel Cells (Auto) >30 H (0-5) /lpf Urine Bacteria (Auto) Negative (Negative) Lyme Disease IgG Ab (Negative) Lyme Disease IgM Ab (Negative) Imaging Data Radiologist's Impression: Radiology results as stated below per my review and the radiologist's interpretation: CT angio head w con CLINICAL HISTORY: 53 years-old Female presenting with [place], confusion, word finding difficulty. TECHNIQUE: Multidetector CT angiography of the head was performed after the administration of intravenous contrast. 3-D volumetric and/or maximum intensity projection (MIP) images were subsequently reconstructed for review. IV contrast: 120 mL of Optiray 320. One or more dose lowering techniques were used consis tent with the principles of ALARA (as low as reasonably achievable), including automatic exposure control, mA or kV adjustment to individual patient size, and/or use of iterative reconstruction. COMPARISON: None. CT DOSE (mGy.cm): The estimated cumulative dose is 1691.77 mGy.cm. FINDINGS: Foam Charger topogram: Unremarkable. Anterior circulation: Intracranial portions of the internal carotid arteries patent to the level of the termini. Aplastic or hypoplastic A1 segment of the left anterior cerebral artery (VAN). Right VAN patent. Middle cerebral arteries patent. Anterior communicating artery patent. Posterior circulation: Codominant vertebral arteries. Intradural portions of the vertebral arteries patent. Posterior inferior cerebellar arteries patent. Basilar artery patent. Anterior inferior cerebellar arteries poorly visualized. Superior cerebellar arteries patent. Posterior cerebral arteries patent. Posterior communicating arteries hypoplastic or aplastic. Dural venous sinuses: Patent. Other: Allowing for the phase of contrast, brain parenchyma within normal limits. Calvarium intact. IMPRESSION: 1. No evidence of aneurysm, focal vessel occlusion, or significant stenosis of the intracranial arteries. ACT 112: Negative or not required by law. Electronically signed by: Bijan Blackman M.D. 02/20/2019 12:[address] angio neck with con CLINICAL HISTORY: [place], confusion, word finding difficulty POSSIBLE ACUTE STROKE COMPARISON STUDY: No previous studies for comparison. TECHNIQUE: CT angiography was performed from the aortic arch to the skull base. MIP imaging was performed. The patient was scanned in a dynamic helical fashion during intravenous administration of 120 cc of Optiray 320. A dose lowering technique was utilized adhering to the principles of ALARA. CT DOSE: Technique: CT angiogram of the carotid and vertebral arteries was obtained using intravenous contrast and 3-D reconstruction. NASCET criteria was utilized. Findings: The right carotid revealed no evidence of aneurysm and no evidence of dissection. There is no evidence of hemodynamic significant stenosis. The left carotid revealed no evidence of hemodynamic significant stenosis. There is no evidence of aneurysm. There is no evidence of dissection. There is no evidence of hemodynamically significant vertebral stenosis. There is no evidence of vertebral dissection. IMPRESSION: No evidence of hemodynamically significant carotid or vertebral artery stenosis. No evidence of dissection. ACT 112: Negative or not required by law. Electronically signed by: Brenton Prieto M.D. 02/20/2019 12:[address] OF THE HEAD WITHOUT CONTRAST CLINICAL HISTORY: [place], confusion, word finding difficulty COMPARISON STUDY: Head CT May 28, 2018. TECHNIQUE: Helical axial images of the head were obtained without IV contrast. Automated exposure control was utilized for the study. A dose lowering technique was utilized adhering to the principles of ALARA. FINDINGS: No acute intracranial hemorrhage, midline shift or mass effect is present. The ventricular system is unremarkable. The basilar cisterns are pat ent. No extra-axial collections are present. There are no findings to suggest acute dural sinus thrombosis or acute territorial infarct. No significant calvarial abnormalities are present. Visualized portions of the sinuses and mastoid air cells are clear. Minimal white matter hypodensities are unchanged. IMPRESSION: No acute intracranial findings. ACT 112: Negative or not required by law. Electronically signed by: Anjel Meza M.D. 02/20/2019 12:04 PM XR chest 1V portable CLINICAL HISTORY: Chest Pain COMPARISON STUDY: Chest radiograph May 28, 2018. FINDINGS: Lung volumes are normal. Lungs are clear. There is no pneumothorax or pleural effusion. Cardiac size is normal. Mediastinal contours are normal. There is no evidence for pulmonary edema. IMPRESSION: No acute cardiopulmonary findings. ACT 112: Negative or not required by law. Electronically signed by: Anjel Meza M.D. 02/20/2019 10:42 AM ECG Data Attestation: I personally reviewed and interpreted this ECG as follows: Indication: + nausea and + weakness Rate (beats per minute): 88 Rhythm: + normal sinus ECG [place]: + Normal ECG ST segments: no ST depression and no ST elevation ECG Findings: + Other (ST and T wave abnormality. QT-c 416. QRS 92. ) Blood Pressure Blood Pressure Findings: Elevated blood pressure Blood Pressure Disposition: further management by hospitalist OFELIA Narrative The patient is a pleasant 53-year-old woman with a past medical history of migraines remotely who presents emergency department with headache and confusion with unsteadiness that is been evolving over the past several days per HPI. On arrival patient is fatigued appearing but no acute distress, afebrile stable vital signs. Patient has no focal neuro deficits. She appears clinically dry. EKG without overt acute ischemia. Chest x-ray negative for acute process. Lab work was notable for hypercalcemia with a calcium of 12.8. WBC 11.4, nonspecific. H/H and platelets within normal limits. Chemistry without acidosis. Creatinine 1.4 consistent with the patient's clinically dry appearance. Troponin negative/undetectable. CTA of the head and neck was performed and negative for ICH, ischemia, severe narrowing or occlusion of large vessels. Patient was feeling improved after IV fluid hydration, APAP, Compazine, Benadryl, dexamethasone. I did review the patient's lab results including her elevated calcium which certainly could explain her symptoms. Patient does report she has been having persistent reflux symptoms and taking liberal amounts of Tums. Given the patient's symptomatic hypercalcemia reasonable to admit for further management. Patient is agreeable with this. Case was discussed with Dr. Scott, [facility] hospitalist, who evaluate the patient for admission. Impression & Plan Hypercalcemia, Acute renal insufficiency, Migraine, Hypothyroidism Discharge Plan Visit Data *Final* Discharge Date/Time: 02/20/19 15:36 Chief Complaint: Neuro Symptoms/Deficit Stated Complaint: HYPERTENSION ED Provider: Gurinder Jones Discharge Problem: Hypercalcemia, Acute renal insufficiency, Migraine, Hypothyroidism Patient Disposition: Admitted As Inpatient Discharge Instructions Interventions: ED Discharge Assessment Last Done: 02/20/19 15:36 The scribe's documentation has been prepared under my direction and personally reviewed by me in its entirety. I confirm that the note above accurately reflects all work, treatment, procedures, and medical decision making performed by me.
[2019-02-20] MEDS ORDERED: CYCLOBENZAPRINE HCL 5 MG TAB PO STA (20:19)
[2019-02-20 20:51] LABS: Albumin Globulin Ratio 0.9 (0.9-2); Albumin Level 3.6 gm/dl (3.4-5.0); BUN Creatinine Ratio 10.5 (10-20); Bilirubin,Total 0.5 mg/dl (0.2-1); Calcium 9.6 mg/dl (8.5-10.1); Creatinine Clr Calc Pharmacy 50.6 ml/min; Est GFR (African American) 48.8; Est GFR (Non-African American) 42.1; Globulin 4.2 gm/dl (2.5-4.0); Potassium 3.9 mmol/L (3.5-5.1); Total Protein 7.8 gm/dl (6.4-8.2)
[2019-02-20] MEDS: AMITRIPTYLINE HCL 100 MG TAB PO SCH (20:52)
[2019-02-21] MEDS ORDERED: ERGOCALCIFEROL 50,000 UNITS CAP PO STA (00:17)
[2019-02-21] MEDS: SODIUM CHLORIDE 0.9% 1000ML 1,000 ML IV SCH ×2 (01:48→12:00)
[2019-02-21] MEDS: OXYCODONE/ACETAMINOPHEN 5mg/325mg TAB PO PRN ×3 (05:50→22:02)
[2019-02-21] MEDS: LEVOTHYROXINE SODIUM 175 MCG TABLET PO SCH (05:50)
[2019-02-21 06:44] LABS: Hematocrit (blood only) 33.9 % (37-47); Hemoglobin 11.2 g/dL (12.0-16.0); Immature Granulocytes # (auto) 0.03 K/uL (0.00-0.02); Immature Granulocytes % (auto) 0.3 %; Lymphocytes # (auto) 1.07 K/uL (1.2-3.4); Lymphocytes % (auto) 9.7 %; Mean Corpuscular Hemoglobin 30.9 pg (25-34); Mean Corpuscular Volume 93.4 fL (80-100); Mean Platelet Volume 8.8 fL (7.4-10.4); Monocytes # (auto) 0.14 K/uL (0.11-0.59); Monocytes % (auto) 1.3 %; Neutrophils # (auto) 9.75 K/uL (1.4-6.5); Neutrophils % (auto) 88.7 %; Platelet Count 284 K/uL (130-400); RDW Coefficient of Variation 12.9 % (11.5-14.5); RDW Standard Deviation 44.2 fL (36.4-46.3); Red Blood Count 3.63 M/uL (4.2-5.4); White Blood Count 10.99 K/uL (4.8-10.8)
[2019-02-21 07:20] LABS: Albumin Level 3.4 gm/dl (3.4-5.0); BUN Creatinine Ratio 12.8 (10-20); Calcium 9.4 mg/dl (8.5-10.1); Creatinine Clr Calc Pharmacy 64.1 ml/min; Est GFR (African American) 64.9; Potassium 3.8 mmol/L (3.5-5.1)
[2019-02-21 07:22] LABS: Albumin Globulin Ratio 0.8 (0.9-2); Bilirubin,Total 0.5 mg/dl (0.2-1); Globulin 4.2 gm/dl (2.5-4.0); Total Protein 7.6 gm/dl (6.4-8.2)
[2019-02-21] MEDS: PROPRANOLOL HCL LA 80 MG CAPCR PO SCH (09:17)
[2019-02-21] MEDS: GABAPENTIN 600 MG TAB PO SCH ×4 (09:17→20:04)
[2019-02-21] MEDS: METOCLOPRAMIDE HCL 10 MG TABLET PO PRN (09:18)
[2019-02-21] MEDS: DULOXETINE HCL 60 MG CAP PO SCH (11:59)
--- NOTE | 2019-02-21 13:29 | Neurology Consultation ---
Date of Consultation February 21, 2019 Assessment & Plan (1) Hypothyroidism: (2) Hypercalcemia: (3) Migraine: Lizbet Her is a 53-year-old woman with past medical history of migraine, hypothyroidism, fibromyalgia, history of nephrolithiasis, morbid obesity, hypertension who presents to [facility] for evaluation of migraine associated with confusion, word finding difficulty, numb lips and bilateral leg weakness where her legs will just give out and she will fall to the ground, found to have hy percalcemia and overt hypothyroidism. # Migraine without aura: Currently sees Dr. Heard and is supposed to be on ajovy/amitriptyline/propranolol for migraine prevention and Maxalt/Reglan as needed for acute treatment. Both clinical and subclinical hypothyroidism are known to worsen migraine frequency and severity, suspect that this is the case given the severity of her hypothyroidism. -Continue above home preventative medications (amitriptyline and propranolol) -Begin serial migraine cocktails: IV tylenol/Benadryl/compazine q8h with IVFs to help break current headache cycle - Consider valproic acid 500mg IV q8h after 24 hours of migraine cocktails if no improvement in headache (to baseline severity as she has daily headaches at baseline) and test negative -If continues to have severe headaches despite above treatment, could consider DHE therapy #Hypothyroidism: Addressed per primary team as this is the most likely reason fo r her worsening headaches, new onset confusion and proximal leg weakness. Continue to monitor for improvement over the next few weeks as her hypothyroidism is treated appropriately. #Hypercalcemia: Resolved on repeat labs today. This could also have contributed to her confusion and muscle weakness. -Would advise her not to take such frequent Tums to prevent this in the future Thank you for this interesting consult. We will continue to follow. Please call or text with any questions. (4) Acute renal insufficiency: History of Present Illness Attending Physician: Harjeet Her, History of Present Illness Lizbet Her is a 53-year-old woman with past medical history of migraine, hypothyroidism, fibromyalgia, history of nephrolithiasis, morbid obesity, hypertension who presents to [facility] for evaluation of migraine associated with confusion, word finding difficulty, numb lips and bilateral leg weakness where her legs will just give out and she will fall to the ground. She presented to the ED on February 20, 2019 with the above symptoms. At that time review of systems is also notable for nausea and chills. Vitals are unremarkable except for blood pressure 172/90 and heart rate 103. Labs show WBC 11.46, hemoglobin 12.7, platelets 254, sodium mildly low at 135, BUN 15, creatinine 1.42, glucose 167, calcium 12.2, mag/phosphorus within normal, LFTs within normal, mildly elevated alkaline phosphatase 137, troponin negative, TSH significantly elevated at 66.8 with suppressed free T4 and intact PTH, low vitamin D 12.2, Lyme negative and urinalysis negative for infection. Chest x- ray showed no signs of infection. EKG showed normal sinus rhythm. Independent review of CT head shows no hemorrhage or hypodensities. CTA of the head and neck shows no LVO, high-grade stenosis or aneurysm, nor any cerebral venous sinus thrombosis. Given hypercalcemia significantly elevated TSH, patient was admitted for further work-up. On examination today, she reports that she has significant ongoing headache that starts in her neck and occipital region and radiates to the retro-orbital region. She has associated nausea and photo/phonophobia. Pain severity is 8 out of 10 which is similar to the severity that she has had with her prior headaches. The current headaches are similar in character to the ones that she has had in the past. She reports that she has been taking her preventive medications as ordered, as well as taking the rizatriptan 3 times a week as well as daily oxycodone for her arthritis pain (started this about 2 months ago). She reports that she has been taking her Synthroid dose as prescribed with no recent changes in her dosing. She reports that she is still waiting to have an MRI of the brain. She denies ever having symptoms similar to this in the past. She does endorse symptoms of hypothyroidism over the last few months including cold intolerance, worsening depression, and weight gain. Allergies Allergy/AdvReac Type Severity Reaction Status Date / Time paroxetine Allergy Intermediate nauseous Verified 02/20/19 10:30 butorphanol Allergy Unknown nauseous Verified 02/20/19 10:30 cortisone Allergy Unknown HIVES,facial Verified 02/20/19 10:30 swelling Sulfa (Sulfonamide Allergy Unknown Unknown Verified 02/20/19 10:30 Antibiotics) morphine AdvReac Mild nauesous Verified 02/20/19 10:30 iodine AdvReac Unknown itch Verified 02/20/19 10:30 Home Medications Home Medications Medication Instructions Recorded Confirmed Type amitriptyline 100 mg PO HS 12/13/17 02/20/19 History jfcinouoby-aashzfscev-afa-cod 1 cap PO Q6H PRN 12/13/17 02/20/19 History levothyroxine 175 mcg PO QAM 12/13/17 02/20/19 History propranolol 160 mg PO QAM 12/13/17 02/20/19 History diphenhydramine HCl [Benadryl 25 mg PO Q8H PRN #10 tab 02/10/18 02/20/19 Rx Allergy] fremanezumab-vfrm 225 mg/1.5 mL 225 mg SQ .every 30 days #1.5 ml 11/28/18 02/20/19 Rx subcutaneous syringe gabapentin 600 mg tablet 600 mg PO QID tab 11/28/18 02/20/19 History metoclopramide HCl 10 mg tablet 10 mg PO BID PRN #30 tab 11/28/18 02/20/19 Rx rizatriptan 10 mg disintegrating 10 mg PO Q2H PRN #12 tab 11/28/18 02/20/19 Rx tablet oxycodone-acetaminophen [Percocet] 1 tab PO Q8H PRN 02/20/19 02/20/19 History Patient History Medical History Acute kidney injury (Acute 04/03/14) Acute pyelonephritis (Acute 04/03/14) Atypical migraine (Acute) Benign essential HTN Cephalgia (Acute) Concussion (Acute) Contusion of multiple sites (Acute) Fall (Acute) Fibromyalgia Head injury (Acute) Headache (Acute) Hip injury (Acute) History of kidney stones HTN (hypertension) (Chronic) Hypokalemia (Acute) Hypothyroidism Injury of right lower arm (Acute) Intractable headache (Acute) Kidney stones Left nephrolithiasis Migraine (Chronic) Obesity (BMI 30-39.9) Positive D dimer (Acute) Renal insufficiency (Acute) UTI (urinary tract infection) Surgical History H/O lithotripsy Family History Other Diabetes Hypertension Migraine Social History Preferred Language: Albanian Communication Ability: Effective Visual Impairment: No Limitations Hearing Ability: Normal [employer] Screener Required: No Beliefs That Will Affect Care: None marital status: Current Living Situation: Spouse Other Information That Helps Us Care for You: No Feels Safe at Home: Yes Safety Concerns: Feels Safe At This Time Smoking Status: Never smoker Do You Dip or Chew Tobacco: No ; Second Hand Exposure: No ; Tobacco Cessation Education Requested by Patient: No Hx Alcohol Use: Yes Alcohol type: hard liquor Hx Substance Use: No Review of Systems Review of Systems: 14 point review of systems completed and negative except as in HPI. Physical Exam Physical Exam: General Exam: GEN: NAD, sitting in chair. CV: RRR, no peripheral edema PULM: Nonlabored respirations on room air. Neuro Exam: MS: Awake and Alert. Oriented to person, place, and date. Speech fluent and appropriate without dysarthria or paraphasic errors. Language intact including naming, comprehension, repetition. Cognition and memory grossly intact. Attention intact. No neglect. CN: Visual russell full. No extinction to double simultaneous stimuli. No optic disc edema on fundoscopic exam. PERRLA OU. EOMI without nystagmus. Facial sensation intact to LT. Facial muscles full and symmetric. Hearing intact to conversation. Uvula midline with symmetric palatal elevation. Shoulder shrug normal. Tongue midline. MOTOR: Normal bulk and tone. No pronator drift. BUE strength 5/5 at deltoids, biceps, triceps, wrist flexors and extensors, and hand grasp bilaterally. BLE strength 5/5 at iliopsoas, hamstrings, quadriceps, tibialis anterior, and gastrocnemius bilaterally. REFLEXES: 2+ at biceps, triceps, brachioradialis, 1+ patella bilaterally. Flexor plantar responses bilaterally. SENSORY: Intact to LT without extinction to double simultaneous stimuli. Vibration and temperature intact throughout. COORDINATION: No dysmetria or ataxia on xbwgjf-cm-jpwm bilaterally. Normal Gregor bilaterally. GAIT: Deferred given physical status Results & Data Vital Signs (Past 12 Hours) Vital Signs Temp Pulse Resp BP Pulse Ox 02/21/19 10:54 36.6 C 89 18 125/71 96 02/21/19 07:23 36.9 C 85 16 133/75 96 02/21/19 04:12 36.6 C 79 16 111/71 93 Laboratory Results Laboratory Results - last 24 hr 02/20/19 02/20/19 02/20/19 16:51 16:51 16:51 WBC RBC Hgb Hct MCV MCH MCHC RDW Std Deviation RDW Coeff of [place]ia Plt Count MPV Immature Gran % (Auto) Neut % (Auto) Lymph % (Auto) [place] % (Auto) Eos % (Auto) Baso % (Auto) Immature Gran # (Auto) Neut # (Auto) Lymph # (Auto) [place] # (Auto) Eos # (Auto) Baso # (Auto) Sodium Potassium Chloride Carbon Dioxide Anion Gap BUN Creatinine Est Cr Clr Drug Dosing Est GFR ( Amer) Est GFR (Non-Af Amer) BUN/Creatinine Ratio Glucose Calcium Ionized Calcium 1.17 Total Bilirubin AST ALT Alkaline Phosphatase Total Protein Albumin Globulin Albumin/Globulin Ratio 25-OH Vitamin D Total 12.2 L PTH Intact 27.2 02/20/19 02/21/19 02/21/19 20:03 06:16 06:16 WBC 10.99 H RBC 3.63 L Hgb 11.2 L Hct 33.9 L MCV 93.4 MCH 30.9 MCHC 33.0 RDW Std Deviation 44.2 RDW Coeff of [place] 12.9 Plt Count 284 MPV 8.8 Immature Gran % (Auto) 0.3 Neut % (Auto) 88.7 Lymph % (Auto) 9.7 [place] % (Auto) 1.3 Eos % (Auto) 0.0 Baso % (Auto) 0.0 Immature Gran # (Auto) 0.03 H Neut # (Auto) 9.75 H Lymph # (Auto) 1.07 L [place] # (Auto) 0.14 Eos # (Auto) 0.00 Baso # (Auto) 0.00 Sodium 135 L 137 Potassium 3.9 3.8 Chloride 102 106 Carbon Dioxide 23 25 Anion Gap 9.0 6.0 BUN 15 14 Creatinine 1.42 H 1.12 D Est Cr Clr Drug Dosing 50.6 64.1 Est GFR ( Amer) 48.8 64.9 Est GFR (Non-Af Amer) 42.1 56.0 BUN/Creatinine Ratio 10.5 12.8 Glucose 167 H 126 H Calcium 9.6 D 9.4 Ionized Calcium Total Bilirubin 0.5 0.5 AST 14 L 12 L ALT 17 17 Alkaline Phosphatase 116 108 Total Protein 7.8 7.6 Albumin 3.6 3.4 Globulin 4.2 H 4.2 H Albumin/Globulin Ratio 0.9 0.8 L 25-OH Vitamin D Total PTH Intact PG Care Time/CCT Total # of Minutes Spent Total Time Spent with Patient: Total time spent is greater than 50% in coordination of care (as documented) at patient's floor/unit and/or counseling patient:
[2019-02-21] MEDS ORDERED: LORazepam 1 MG TAB PO ONE (14:25)
--- NOTE | 2019-02-21 16:40 | Hospitalist Progress Note ---
Date of Service February 21, 2019 Assessment & Plan (1) Hypercalcemia: resolved with IV fluids, down to 9 PTH normal which would rule out hyperparathyroidism would expect PTH to be low with hypercalcemia of malignancy patient ingesting a lot of tums will check urinary calcium level to look into heriditary hypocalcuria, but would expect her to have presented with high calcium before this (2) Acute renal insufficiency: likely prerenal azotemia Cr improved to 1.1 from 1.4 on admission, continue IV fluids for now stop tomorrow (3) Fibromyalgia: Patient does not have complaints at this time. (4) Hypothyroidism: Discussed with eyeglass lens grinder Dr. Damien Suresh and he recommended to continue the same dose of levothyroxine 175 MCG's p.o. every morning. Patient should follow-up with her eyeglass lens grinder and repeat TSH in 6 weeks. unclear why TSH would be so high without any significant changes in her health will repeat TSH and T4 in the morning reviewed medications, no interactions that would make levothyroxine less effective (5) Obesity (BMI 30-39.9): Patient advised to try to lose weight and change her lifestyle/diet and exercises. certainly the hypothyroidism not helping (6) HTN (hypertension): Blood pressure is well controlled. Continue home medicine propranolol 160 mg p.o. every morning. Continue monitoring every 4 hours (7) Migraine: Continue home medicine Percocet 1 tablet p.o. every 8 hours as needed for pain, Rizatriptan 10 mg p.o. every 2 hours as needed, metoclopramide 10 mg p.o. twice daily as needed, gabapentin 600 mg p.o. 4 times daily, amitriptyline 100 mg p.o. nightly, butalbital acetaminophen caffeine 1 capsule p.o. every 6 hours as needed. appreciate neurology consult, hypothyroidism can lead to more frequent migraine headaches, need to fix that issue MRI brain without acute stroke so her difficulty speaking and numbness likely complex migraine Subjective patient feeling better today, less migraine headache no longer has difficulty speaking, no numbness in her left side MRI brain with no evidence of ischemic stroke, shows some small white matter changes but nothing significant reviewed labs, TSH markedly elevated at 66 she confirms that she is taking it reviewed medication list, no interactions that could lead to levothyroxine working less effectively will repeat TSH tomorrow and check T4 calcium normal at 9 PTH normal which rules out hyperparathyroidism and if it was hypercalcemia due to malignancy would expect PTH to be low patient taking Tums at home, likely the culprit discussed with Dr. Brooke, appreciate her input, hypothyroidism can lead to increased migraine headaches need to correct TSH as outpatient Review of Systems Review of Systems: All systems reviewed & are unremarkable except as noted in HPI & below Physical Exam Constitutional: WD/WN, vitals as above + lethargic Eyes: PERRL, conjunctivae normal, anicteric sclerae ENMT: external ear and nose normal, oropharynx normal Neck: trachea midline, no thyromegaly Respiratory: normal respiratory effort, lungs clear to auscultation Cardiovascular: RRR, no murmur, no edema Gastrointestinal (Abdomen): normal bowel sounds, soft, nontender, no hepatosplenomegaly Musculoskeletal: no cyanosis or clubbing, extremities motor strength 5/5 Skin: no rashes, warm and dry Neurologic: patellar DTR's 2+ bilat, sensation intact and PERRL, EOMI, a ccommodation nl, no face palsy, no dysarthria Psychiatric: A+Ox3, euthymic affect Lymphatic: no cervical or axillary lymphadenopathy Results & Data Vital Signs (Past 12 Hours) Vital Signs Temp Pulse Resp BP Pulse Ox 02/21/19 16:27 36.7 C 89 20 137/79 97 02/21/19 10:54 36.6 C 89 18 125/71 96 02/21/19 07:23 36.9 C 85 16 133/75 96 Laboratory Results Laboratory Results - last 24 hr 02/20/19 02/20/19 02/20/19 16:51 16:51 16:51 WBC RBC Hgb Hct MCV MCH MCHC RDW Std Deviation RDW Coeff of Sintia Plt Count MPV Immature Gran % (Auto) Neut % (Auto) Lymph % (Auto) [place] % (Auto) Eos % (Auto) Baso % (Auto) Immature Gran # (Auto) Neut # (Auto) Lymph # (Auto) [place] # (Auto) Eos # (Auto) Baso # (Auto) Sodium Potassium Chloride Carbon Dioxide Anion Gap BUN Creatinine Est Cr Clr Drug Dosing Est GFR ( Amer) Est GFR (Non-Af Amer) BUN/Creatinine Ratio Glucose Calcium Ionized Calcium 1.17 Total Bilirubin AST ALT Alkaline Phosphatase Total Protein Albumin Globulin Albumin/Globulin Ratio 25-OH Vitamin D Total 12.2 L PTH Intact 27.2 02/20/19 02/21/19 02/21/19 20:03 06:16 06:16 WBC 10.99 H RBC 3.63 L Hgb 11.2 L Hct 33.9 L MCV 93.4 MCH 30.9 MCHC 33.0 RDW Std Deviation 44.2 RDW Coeff of S[place]ia 12.9 Plt Count 284 MPV 8.8 Immature Gran % (Auto) 0.3 Neut % (Auto) 88.7 Lymph % (Auto) 9.7 [place] % (Auto) 1.3 Eos % (Auto) 0.0 Baso % (Auto) 0.0 Immature Gran # (Auto) 0.03 H Neut # (Auto) 9.75 H Lymph # (Auto) 1.[address] [place] # (Auto) 0.14 Eos # (Auto) 0.00 Baso # (Auto) 0.00 Sodium 135 L 137 Potassium 3.9 3.8 Chloride 102 106 Carbon Dioxide 23 25 Anion Gap 9.0 6.0 BUN 15 14 Creatinine 1.42 H 1.12 D Est Cr Clr Drug Dosing 50.6 64.1 Est GFR ( Amer) 48.8 64.9 Est GFR (Non-Af Amer) 42.1 56.0 BUN/Creatinine Ratio 10.5 12.8 Glucose 167 H 126 H Calcium 9.6 D 9.4 Ionized Calcium Total Bilirubin 0.5 0.5 AST 14 L 12 L ALT 17 17 Alkaline Phosphatase 116 108 Total Protein 7.8 7.6 Albumin 3.6 3.4 Globulin 4.2 H 4.2 H Albumin/Globulin Ratio 0.9 0.8 L 25-OH Vitamin D Total PTH Intact Diagnostic Findings MRI brain IMPRESSION: 1. No acute intracranial findings. 2. No intracranial mass or pathologic enhancement. 3. Multiple small white matter T2 hyperintense foci mildly increased in number since MRI of June 25, 2014. These are nonspecific. Small vessel disease, mildly greater than expected for age, is favored. These may also reflect the sequela of migraine headaches. Although within the differential, the appearance is not highly suggestive of multiple sclerosis. Medications Administered Current Inpatient Medications Acetaminophen (Tylenol) 650 mg PO Q4H PRN PRN Reason: Pain or Fever Stop: 03/22/19 16:17 Last Admin: 01/08/20 19:29 Dose: 650 mg Documented by: Al Hydrox/Mg Hydrox/Simethicone (Maalox) 15 ml PO Q4H PRN PRN Reason: Dyspepsia Stop: 03/22/19 16:17 Amitriptyline HCl (Elavil) 100 mg PO HS [facility] Stop: 03/22/19 20:59 Last Admin: 02/20/19 20:52 Dose: 100 mg Documented by: Duloxetine HCl (Cymbalta) 60 mg PO QAM [facility] Stop: 03/23/19 10:29 Last Admin: 02/21/19 11:59 Dose: 60 mg Documented by: Enoxaparin Sodium (Lovenox) 40 mg SQ Q24H [facility] Stop: 03/22/19 17:59 Last Admin: 02/20/19 17:01 Dose: 40 mg Documented by: Gabapentin (Neurontin) 600 mg PO QID [facility] Stop: 03/22/19 16:59 Last Admin: 02/21/19 11:59 Dose: 600 mg Documented by: Sodium Chloride (Nss 1000ml) 1,000 mls @ 100 mls/hr IV .Q10H [facility] Stop: 03/22/19 16:17 Last Admin: 02/21/19 12:00 Dose: 100 mls/hr Documented by: Levothyroxine Sodium (Synthroid) 175 mcg PO DAILYBB [facility] Stop: 03/23/19 06:29 Last Admin: 02/21/19 05:50 Dose: 175 mcg Documented by: Magnesium Hydroxide (Milk Of Magnesia) 30 ml PO Q12H PRN PRN Reason: Constipation Stop: 03/22/19 16:17 Metoclopramide HCl (Reglan) 10 mg PO BID PRN PRN Reason: nausea, migraine Stop: 03/22/19 16:17 Last Admin: 02/21/19 09:18 Dose: 10 mg Documented by: Oxycodone/Acetaminophen (Percocet 5mg/325mg) 1 tab PO Q8H PRN PRN Reason: Pain Stop: 03/06/19 16:17 Last Admin: 02/21/19 13:41 Dose: 1 tab Documented by: Polyethylene Glycol (Miralax Powder Packet) 17 gm PO DAILY PRN PRN Reason: Constipation Stop: 03/22/19 16:17 Propranolol HCl (Inderal La) [facility] [place] Stop: 03/23/19 08:59 Last Admin: 02/21/19 09:17 Dose: 160 mg Documented by: Rizatriptan Benzoate (Maxalt) 10 mg PO Q2H PRN PRN Reason: Migraine Headache Stop: 03/22/19 16:28 Last Admin: 02/21/19 09:42 Dose: 10 mg Documented by: PG Care Time/CCT Total # of Minutes Spent Total Time Spent with Patient: Total time spent is greater than 50% in coordination of care (as documented) at patient's floor/unit and/or counseling patient:
[2019-02-21] MEDS: ENOXAPARIN INJ 40 MG/0.4 ML SYR SQ SCH (17:51)
[2019-02-21] MEDS ORDERED: LORazepam 1 MG TAB ONE (18:04)
[2019-02-21] MEDS ORDERED: GADOBUTROL 65ML VIAL IV PRN (19:07)
--- NOTE | 2019-02-21 19:19 | Magnetic Resonance Report ---
MR brain MS wo/w con CLINICAL HISTORY: Dysarthria. Dizziness. Tingling in hands. COMPARISON STUDY: MRI of the brain June 25, 2014. Head CT and CTA of the head February 20, 2019. TECHNIQUE: Utilizing a 1.5 Amberly magnet, multiplanar, multi echo imaging of the brain was performed p re and postcontrast administration according to multiple sclerosis protocol. Intravenous injection of 9.5 cc of Gadavist was uneventful. FINDINGS: There are no foci of restricted diffusion to suggest acute infarct. No acute intracranial h emorrhage, midline shift or mass effect is present. Brain volume is normal. Ventricular system is nor mal. Basilar cisterns are patent. There are no extra axial collections. Flow-voids for the major intr acranial vessels are present. There is no intracranial mass or pathologic enhancement. There are mult iple small white matter T2 hyperintense foci which have mildly progressed since MRI of June 25, 2014. No cerebellopontine angle mass is noted. There is no mastoid effusion. Orbits are unremarkable. IMPRESSION: 1. No acute intracranial findings. 2. No intracranial mass or pathologic enhancement. 3. Multiple small white matter T2 hyperintense foci mildly increased in number since MRI of June 25 015. These are nonspecific. Small vessel disease, mildly greater than expected for age, is favored. T hese may also reflect the sequela of migraine headaches. Although within the differential, the appear ance is not highly suggestive of multiple sclerosis. ACT 112: Negative or not required by law. Electronically signed by: Anjel Meza M.D. 02/21/2019 7:18 PM
[2019-02-21] MEDS: AMITRIPTYLINE HCL 100 MG TAB PO SCH (20:04)
[2019-02-22] MEDS: SODIUM CHLORIDE 0.9% 1000ML 1,000 ML IV SCH ×2 (02:08→12:51)
[2019-02-22] MEDS: LEVOTHYROXINE SODIUM 175 MCG TABLET PO SCH (06:20)
[2019-02-22 07:35] LABS: Eosinophils # (auto) 0.01 K/uL (0-0.5); Eosinophils % (auto) 0.1 %; Hematocrit (blood only) 32.5 % (37-47); Hemoglobin 10.6 g/dL (12.0-16.0); Immature Granulocytes # (auto) 0.04 K/uL (0.00-0.02); Immature Granulocytes % (auto) 0.3 %; Lymphocytes # (auto) 1.46 K/uL (1.2-3.4); Lymphocytes % (auto) 12.6 %; Mean Corpuscular Hgb Conc 32.6 g/dL (32-36); Monocytes # (auto) 0.52 K/uL (0.11-0.59); Monocytes % (auto) 4.5 %; Neutrophils % (auto) 82.5 %; Platelet Count 272 K/uL (130-400); RDW Coefficient of Variation 13.4 % (11.5-14.5); Red Blood Count 3.42 M/uL (4.2-5.4); White Blood Count 11.63 K/uL (4.8-10.8)
[2019-02-22 08:01] LABS: Albumin Level 3.1 gm/dl (3.4-5.0); BUN Creatinine Ratio 16.6 (10-20); Calcium 8.5 mg/dl (8.5-10.1); Creatinine Clr Calc Pharmacy 67.9 ml/min; Est GFR (African American) 64.9; Potassium 3.8 mmol/L (3.5-5.1)
[2019-02-22 08:10] LABS: Albumin Globulin Ratio 0.9 (0.9-2); Bilirubin,Total 0.3 mg/dl (0.2-1); Globulin 3.6 gm/dl (2.5-4.0); Thyroid Stimulating Hormone 67.1 uIu/ml (0.300-4.500); Total Protein 6.7 gm/dl (6.4-8.2)
[2019-02-22 08:22] LABS: T4 Free Thyroxine 0.54 ng/dl (0.8-1.6)
[2019-02-22] MEDS: PROPRANOLOL HCL LA 80 MG CAPCR PO SCH (09:22)
[2019-02-22] MEDS: DULOXETINE HCL 60 MG CAP PO SCH (09:22)
[2019-02-22] MEDS: OXYCODONE/ACETAMINOPHEN 5mg/325mg TAB PO PRN ×2 (09:23→17:34)
[2019-02-22] MEDS: GABAPENTIN 600 MG TAB PO SCH ×4 (09:23→20:49)
[2019-02-22] MEDS: METOCLOPRAMIDE HCL 10 MG TABLET PO PRN (10:25)
[2019-02-22] MEDS ORDERED: PROCHLORPERAZINE 5 MG in SYRINGE 4 ML IV PRN (10:41)
[2019-02-22] MEDS ORDERED: DiphenhydrAMINE HCL 50 MG/ML VIAL IV PRN (10:41)
[2019-02-22] MEDS: ACETAMINOPHEN 1,000 MG/100 ML VIAL IV PRN ×2 (12:53→21:21)
--- NOTE | 2019-02-22 15:04 | Neurology Progress Note ---
Date of Service February 22, 2019 Assessment & Plan (1) Migraine: Lizbet Her is a 53-year-old woman with past medical history of migraine, hypothyroidism, fibromyalgia, history of nephrolithiasis, morbid obesity, hypertension who presents to [facility] for evaluation of migraine associated with c onfusion, word finding difficulty, numb lips and bilateral leg weakness where her legs will just give out and she will fall to the ground, found to have hypercalcemia and overt hypothyroidism. # Migraine without aura: Currently sees Dr. Heard and is supposed to be on ajovy/amitriptyline/propranolol for migraine prevention and Maxalt/Reglan as needed for acute treatment. Both clinical and subclinical hypothyroidism are known to worsen migraine frequency and severity, suspect that this is the case given the severity of her hypothyroidism. Now with typical migraines that she gets at home without any associated neurological symptoms. -Continue above home preventative medications (amitriptyline and propranolol) -Would give 1-2 doses of serial migraine cocktail as follows to help break current headache and then discharge home after second dose: IV tylenol/Benadryl/compazine (reports that she is worried about nausea on the car ride home, would discharge her soon after her second dose to prevent this as she has Reglan already at home) -Follow-up with Dr. Heard on February 25 as already scheduled #Hypothyroidism: Addressed per primary team as this is the most likely reason for her worsening headaches, new onset confusion and proximal leg weakness. Continue to monitor for improvement over the next few weeks as her hypothyroidi sm is treated appropriately. #Hypercalcemia: Resolved on repeat labs today. This could also have contributed to her confusion and muscle weakness. -Would advise her not to take such frequent Tums to prevent this in the future Thank you for this interesting consult. We will continue to follow. Please call or text with any questions. (2) Hypothyroidism: (3) Hypercalcemia: (4) Fibromyalgia: Subjective No acute events overnight. She reports that she was doing well until this morning when she had onset of 1 of her typical headaches. She is currently receiving treatment with IV medications for it. Discussed with her that the hospital is not the best place for someone with migraine headache and she was in agreement with this. She denied any other new neurological or other symptoms at this time. Review of Systems Review of Systems: 14 point review of systems completed and negative except as in HPI. Physical Exam Physical Exam: General Exam: GEN: NAD, sitting in bed. CV: RRR, no peripheral edema PULM: Nonlabored respirations on room air. Neuro Exam: MS: Awake and Alert. Oriented to person, place, and date. Speech fluent and appropriate without dysarthria or paraphasic errors. Language intact including naming, comprehension, repetition. Cognition and memory grossly intact. Attention intact. No neglect. CN: Visual russell full. No extinction to double simultaneous stimuli. No optic disc edema on fundoscopic exam. PERRLA OU. EOMI without nystagmus. Facial sensation intact to LT. Facial muscles full and symmetric. Hearing intact to conversation. Uvula midline with symmetric palatal elevation. Shoulder shrug normal. Tongue midline. MOTOR: Normal bulk and tone. No pronator drift. BUE strength 5/5 at deltoids, biceps, triceps, wrist flexors and extensors, and hand grasp bilaterally. BLE strength 5/5 at iliopsoas, hamstrings, quadriceps, tibialis anterior, and gastrocnemius bilaterally. REFLEXES: 2+ at biceps, triceps, brachioradialis, 1+ patella bilaterally. Flexor plantar responses bilaterally. SENSORY: Intact to LT without extinction to double simultaneous stimuli. Vibration and temperature intact throughout. COORDINATION: No dysmetria or ataxia on [id number] bilaterally. Normal Gregor bilaterally. GAIT: Deferred given physical status Results & Data Vital Signs (Past 12 Hours) Vital Signs Temp Pulse Pulse Resp BP Pulse Ox 02/22/19 08:00 84 02/22/19 07:00 37.1 C 81 18 125/75 95 02/22/19 04:07 36.9 C 83 18 109/69 88 L Laboratory Results Abnormal lab results 02/22/19 02/22/19 Range/Units 07:00 07:00 WBC 11.63 H (4.8-10.8) K/uL RBC 3.42 L (4.2-5.4) M/uL Hgb 10.6 L (12.0-16.0) g/dL Hct 32.5 L (37-47) % Immature Gran # (Auto) 0.04 H (0.00-0.02) K/uL Neut # (Auto) 9.60 H (1.4-6.5) K/uL Chloride 111 H (98-107) mmol/L BUN 19 H (7-18) mg/dl AST 12 L (15-37) U/L Albumin 3.1 L (3.4-5.0) gm/dl TSH 67.100 H (0.300-4.500) uIu/ml Free T4 0.54 L (0.8-1.6) ng/dl PG Care Time/CCT Total # of Minutes Spent Total Time Spent with Patient: Total time spent is greater than 50% in coordination of care (as documented) at patient's floor/unit and/or counseling patient:
--- NOTE | 2019-02-22 16:10 | Hospitalist Progress Note ---
Date of Service February 22, 2019 Assessment & Plan (1) Hypercalcemia: resolved with IV fluids, down to 8.5 PTH normal which would rule out hyperparathyroidism would expect PTH to be low with hypercalcemia of malignancy patient ingesting a lot of tums d/w Dr. Marie, it is very difficult to raise calcium level by just ingesting a lot of Tums will check urinary calcium level to look into heriditary hypocalcuria, but would expect her to have presented with high calcium before this (2) Acute renal insufficiency: likely prerenal azotemia Cr improved to 1.1 from 1.4 on admission, stop fluids (3) Fibromyalgia: Patient does not have complaints at this time. (4) Hypothyroidism: Discussed with laundrette owner Dr. 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 Marie would like to see in office on 02/28 at 745am (5) Obesity (BMI 30-39.9): Patient advised to try to lose weight and change her lifestyle/diet and exercises. certainly the hypothyroidism not helping (6) HTN (hypertension): Blood pressure is well controlled. Continue home medicine propranolol 160 mg p.o. every morning. Continue monitoring every 4 hours (7) Migraine: Continue home medicine Percocet 1 tablet p.o. every 8 hours as needed for pain, Rizatriptan 10 mg p.o. every 2 hours as needed, metoclopramide 10 mg p.o. twice daily as needed, gabapentin 600 mg p.o. 4 times daily, amitriptyline 100 mg p.o. nightly, butalbital acetaminophen caffeine 1 capsule p.o. every 6 hours as needed. 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 Brooke, she is not sure she would actually call this a migraine variant reviewed MRI brain results with patient, assured her there was no stroke discussed that taking Percocet and Fioricet shelter are not good for migraine headaches, she has taken for years called to discuss elevated TSH with Dr. Marie repeat TSH was 67 this morning, T4 0.5 patient assures me she takes Synthroid in the morning an hour prior to other medications and food her TSH in the past has been normal, has been on the 175mcg dose for years she gives a history of hyperthyroidism in the early , thyroid was irradiated and has been on synthroid ever since Dr. Marie would like to see patient in the office due to elevated TSH and hypercalcemia, unclear what would cause changes appointment made for 02/28 at 745am, patient agrees to go hope to get her home tomorrow Review of Systems Review of Systems: All systems reviewed & are unremarkable except as noted in HPI & below Gastrointestinal: + nausea; no abdominal pain, no vomiting, no constipation and no diarrhea/loose stools Neurologic: + headache(s) Physical Exam Constitutional: WD/WN, vitals as above + lethargic Eyes: PERRL, conjunctivae normal, anicteric sclerae ENMT: external ear and nose normal, oropharynx normal Neck: trachea midline, no thyromegaly Respiratory: normal respiratory effort, lungs clear to auscultation Cardiovascular: RRR, no murmur, no edema Gastrointestinal (Abdomen): normal bowel sounds, soft, nontender, no hepatosplenomegaly Musculoskeletal: no cyanosis or clubbing, extremities motor strength 5/5 Skin: no rashes, warm and dry Neurologic: patellar DTR's 2+ bilat, sensation intact and PERRL, EOMI, accommodation nl, no face palsy, no dysarthria Psychiatric: A+Ox3, euthymic affect Lymphatic: no cervical or axillary lymphadenopathy Results & Data Vital Signs (Past 12 Hours) Vital Signs Temp Pulse Pulse Resp BP Pulse Ox 02/22/19 16:03 36.7 C 74 18 129/74 96 02/22/19 08:00 84 02/22/19 07:00 37.1 C 81 18 125/75 95 Laboratory Results Laboratory Results - last 24 hr 02/22/19 02/22/19 02/22/19 07:00 07:00 19:20 WBC 11.63 H RBC 3.42 L Hgb 10.6 L Hct 32.5 L MCV 95.0 MCH 31.0 MCHC 32.6 RDW Std Deviation 46.0 RDW Coeff of [place] 13.4 Plt Count 272 MPV 9.0 Immature Gran % (Auto) 0.3 Neut % (Auto) 82.5 Lymph % (Auto) 12.6 [place] % (Auto) 4.5 Eos % (Auto) 0.1 Baso % (Auto) 0.0 Immature Gran # (Auto) 0.04 H Neut # (Auto) 9.60 H Lymph # (Auto) 1.46 [place] # (Auto) 0.52 Eos # (Auto) 0.01 Baso # (Auto) 0.00 Sodium 141 Potassium 3.8 Chloride 111 H Carbon Dioxide 24 Anion Gap 6.0 BUN 19 H Creatinine 1.12 Est Cr Clr Drug Dosing 67.9 Est GFR ( Amer) 64.9 Est GFR (Non-Af Amer) 56.0 BUN/Creatinine Ratio 16.6 Glucose 87 Calcium 8.5 Total Bilirubin 0.3 AST 12 L ALT 17 Alkaline Phosphatase 101 Total Protein 6.7 Albumin 3.1 L Globulin 3.6 Albumin/Globulin Ratio 0.9 TSH 67.100 H Free T4 0.54 L Urine Color Yellow Urine Appearance Clear Urine pH 6.0 Ur Specific [place] 1.013 Urine Protein Negative Urine Glucose (UA) Negative Urine Ketones Negative Urine Blood Negative Urine Nitrite Positive A Urine Bilirubin Negative Urine Urobilinogen Negative Ur Leukocyte Esterase Trace H Urine WBC (Auto) 10-30 H Urine RBC (Auto) 0-4 U Hyaline Cast (Auto) 0 U Epithel Cells (Auto) >30 H Urine Bacteria (Auto) 4+ H Diagnostic Findings MRI brain IMPRESSION: 1. No acute intracranial findings. 2. No intracranial mass or pathologic enhancement. 3. Multiple small white matter T2 hyperintense foci mildly increased in number since MRI of June 25, 2014. These are nonspecific. Small vessel disease, mildly greater than expected for age, is favored. These may also reflect the sequela of migraine headaches. Although within the differential, the appearance is not highly suggestive of multiple sclerosis. PG Care Time/CCT Total # of Minutes Spent Total Time Spent with Patient: Total time spent is greater than 50% in coordination of care (as documented) at patient's floor/unit and/or counseling patient:
[2019-02-22] MEDS: ENOXAPARIN INJ 40 MG/0.4 ML SYR SQ SCH (17:35)
[2019-02-22] MEDS ORDERED: Nursing to Pharmacy Communication ONE (19:13)
[2019-02-22 19:41] LABS: Appearance Urine Clear (Clear); Bacteria Urine Automated 4+ (Negative); Bilirubin Urine Negative (Negative); Blood Urine Negative (Negative); Cast Urine Automated 0 /lpf (0-5); Color Urine Yellow; Epithelial Cell Urine Auto >30 /lpf (0-5); Glucose Urine UA Negative (Negative); Ketones Urine Negative (Negative); Leukocyte Esterase Urine Trace (Negative); Nitrite Urine Positive (Negative); Protein Urine Negative (Negative); RBC Urine Automated 0-4 /hpf (0-4); Specific Gravity Urine 1.013 (1.000-1.030); Urobilinogen Urine Negative (Negative)
[2019-02-22] MEDS: AMITRIPTYLINE HCL 100 MG TAB PO SCH (20:49)
[2019-02-23] MEDS: OXYCODONE/ACETAMINOPHEN 5mg/325mg TAB PO PRN (03:47)
[2019-02-23] MEDS: LEVOTHYROXINE SODIUM 175 MCG TABLET PO SCH (06:02)
[2019-02-23 07:42] LABS: Basophils # (auto) 0.01 K/uL (0-0.2); Basophils % (auto) 0.1 %; Eosinophils # (auto) 0.29 K/uL (0-0.5); Eosinophils % (auto) 3.9 %; Hematocrit (blood only) 32.8 % (37-47); Hemoglobin 10.7 g/dL (12.0-16.0); Immature Granulocytes # (auto) 0.03 K/uL (0.00-0.02); Immature Granulocytes % (auto) 0.4 %; Lymphocytes # (auto) 2.06 K/uL (1.2-3.4); Lymphocytes % (auto) 27.9 %; Mean Corpuscular Hgb Conc 32.6 g/dL (32-36); Mean Corpuscular Volume 95.1 fL (80-100); Monocytes % (auto) 5.4 %; Neutrophils # (auto) 4.59 K/uL (1.4-6.5); Neutrophils % (auto) 62.3 %; Platelet Count 237 K/uL (130-400); RDW Coefficient of Variation 13.5 % (11.5-14.5); RDW Standard Deviation 46.8 fL (36.4-46.3); Red Blood Count 3.45 M/uL (4.2-5.4); White Blood Count 7.38 K/uL (4.8-10.8)
[2019-02-23 08:10] LABS: Albumin Level 3.3 gm/dl (3.4-5.0); BUN Creatinine Ratio 13.4 (10-20); Calcium 8.8 mg/dl (8.5-10.1); Creatinine Clr Calc Pharmacy 70.6 ml/min; Est GFR (Non-African American) 61.3; Potassium 3.8 mmol/L (3.5-5.1)
[2019-02-23 08:13] LABS: Albumin Globulin Ratio 0.8 (0.9-2); Bilirubin,Total 0.4 mg/dl (0.2-1); Total Protein 7.3 gm/dl (6.4-8.2)
[2019-02-23] MEDS: DULOXETINE HCL 60 MG CAP PO SCH (09:13)
[2019-02-23] MEDS: PROPRANOLOL HCL LA 80 MG CAPCR PO SCH (09:13)
[2019-02-23] MEDS: GABAPENTIN 600 MG TAB PO SCH (09:13)
[2019-02-23] MEDS: METOCLOPRAMIDE HCL 10 MG TABLET PO PRN (09:14)
--- NOTE | 2019-02-23 09:35 | Discharge Summary ---
Date of Service February 23, 2019 Admission HPI Per Admitting Provider Patient is a 53 years old female with past medical history of hypothyroidism, migraine headache, benign essential hypertension, nephrolithiasis who presents to the emergency room with a persistent migraine started 2 hours ago. The patient reports that she has a migraine since her young age. She felt confused due to migraine headache and she felt that her left lips are getting numb. Patient reports that suddenly she became weak and she fell to the ground. She adds that she has been stumbling around her house for the past few days. The patient reports that she is nauseous and had chills this morning. Patient reports taking Tums regularly to stop nausea. Sometimes she takes several grams per day. Patient denies fever, chills, chest pain, shortness of breath, abdominal pain, frequency, urgency. Patient reports that she had Graves' disease 25 years ago and her thyroid gland was ablated at that time with radioactive isotope. Since then she is on levothyroxine. EKG is reviewed and shows normal sinus rhythm. ST and T wave abnormalities are nonspecific in comparison to EKG from May 28, 2018. Labs are reviewed: WBC is 11.46, hemoglobin 12.7, hematocrit 37.9, platelets 254, PT 10.1, INR 1, APTT 25.8. Sodium 135, potassium 3.9, chloride 102, BUN 15, creatinine 1.42 with baseline 0.96, GFR baseline 68, today GFR is 42.1. Calcium elevated to 12.2. Ionized calcium 1.17. AST 14, ALT 17, vitamin D12 0.2, TSH 66.8, T4 0.52, PTH 27.2. Urine grossly negative. Lyme disease IgG and IgM negative. Head CT no intracranial findings. Had CTA no evidence of aneurysm, focal vessel occlusion or significant stenosis of the intracranial arteries. CTA of the neck no evidence of hemodynamically significant carotid or vertebral artery stenosis. No evidence of dissection. Chest x-rays no acute cardiopulmonary findings. Decision was made to admit patient to [facility] on telemetry for further evaluation of hypercalcemia and migraine headache. Admission Exam Per Admitting Provider Constitutional: WD/WN, vitals as above well developed and + ill appearing Eyes: PERRL, conjunctivae normal, anicteric sclerae ENMT: external ear and nose normal, oropharynx normal Neck: trachea midline, no thyromegaly Respiratory: normal respiratory effort, lungs clear to auscultation Cardiovascular: RRR, no murmur, no edema Gastrointestinal (Abdomen): normal bowel sounds, soft, nontender, no hepatosplenomegaly Musculoskeletal: no cyanosis or clubbing, extremities motor strength 5/5 Skin: no rashes, warm and dry Neurologic: PERRL, EOMI, accommodation nl, no face palsy, no dysarthria deep tendon reflexes 2+ bilaterally, awake and + confused Complains of migraine headache Psychiatric: A+Ox3, euthymic affect Lymphatic: no cervical or axillary lymphadenopathy Principal Diagnosis 1. Migraine without aura 2. Urinary tract infection 3. Hypo-thyroidism with elevated TSH 4. Hypercalcemia of unclear etiology, resolved with IV fluids Discharge Exam Gen: AAOx3, NAD HEENT: neck supple, no JVD. MMM. Heart: RR, no murmurs Lungs: clear to auscultation in all russell Abd: soft, nontender, nondistended. Normal BS Neuro: awake, alert. Nonfocal Psych: appropriate mood and affect Ext: No clubbing, cyanosis, edema Discharge Data Allergies Allergy/AdvReac Type Severity Reaction Status Date / Time paroxetine Allergy Intermediate nauseous Verified 02/20/19 10:30 butorphanol Allergy Unknown nauseous Verified 02/20/19 10:30 cortisone Allergy Unknown HIVES,facial Verified 02/20/19 10:30 swelling Sulfa (Sulfonamide Allergy Unknown Unknown Verified 02/20/19 10:30 Antibiotics) morphine AdvReac Mild nauesous Verified 02/20/19 10:30 iodine AdvReac Unknown itch Verified 02/20/19 10:30 Consultations 02/20/19 13:23 ED Decision to Admit Stat 02/21/19 12:26 Consult Neurology Routine Ordered Studies 02/20/19 10:00 CT angio head w con Stat CT angio neck with con Stat CT head/brain wo con Stat 02/21/19 12:25 MR brain MS wo/w con Urgent MR brain MS wo/w con CLINICAL HISTORY: Dysarthria. Dizziness. Tingling in hands. COMPARISON STUDY: MRI of the brain June 25, 2014. Head CT and CTA of the head February 20, 2019. TECHNIQUE: Utilizing a 1.5 Amberly magnet, multiplanar, multi echo imaging of the brain was performed pre and postcontrast administration according to multiple sclerosis protocol. Intravenous injection of 9.5 cc of Gadavist was uneventful. FINDINGS: There are no foci of restricted diffusion to suggest acute infarct. No acute intracranial hemorrhage, midline shift or mass effect is present. Brain volume is normal. Ventricular system is normal. Basilar cisterns are patent. There are no extra axial collections. Flow-voids for the major intracranial vessels are present. There is no intracranial mass or pathologic enhancement. There are multiple small white matter T2 hyperintense foci which have mildly progressed since MRI of June 25, 2014. No cerebellopontine angle mass is noted. There is no mastoid effusion. Orbits are unremarkable. IMPRESSION: 1. No acute intracranial findings. 2. No intracranial mass or pathologic enhancement. 3. Multiple small white matter T2 hyperintense foci mildly increased in number since MRI of June 25, 2014. These are nonspecific. Small vessel disease, mildly greater than expected for age, is favored. These may also reflect the sequela of migraine headaches. Although within the differential, the appearance is not highly suggestive of multiple sclerosis. Hospital Course (1) Hypercalcemia: resolved with IV fluids, down to 8.5 PTH normal which would rule out hyperparathyroidism would expect PTH to be low with hypercalcemia of malignancy patient ingesting a lot of tums d/w Dr. Marie, it is very difficult to raise calcium level by just ingesting a lot of Tums (2) Acute renal insufficiency: likely prerenal azotemia Cr improved to 1.1 from 1.4 on admission, stop fluids (3) Fibromyalgia: Patient does not have complaints at this time. (4) Hypothyroidism: Discussed with cooling tower operator Dr. 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 Marie would like to see in office on 02/28 at 745am (5) Obesity (BMI 30-39.9): Patient advised to try to lose weight and change her lifestyle/diet and exercises. certainly the hypothyroidism not helping (6) HTN (hypertension): Blood pressure is well controlled. Continue home medicine propranolol 160 mg p.o. every morning. Continue monitoring every 4 hours (7) Migraine: Continue home medicine Percocet 1 tablet p.o. every 8 hours as needed for pain, Rizatriptan 10 mg p.o. every 2 hours as needed, metoclopramide 10 mg p.o. twice daily as needed, gabapentin 600 mg p.o. 4 times daily, amitriptyline 100 mg p.o. nightly, butalbital acetaminophen caffeine 1 capsule p.o. every 6 hours as needed. appreciate neurology consult, hypothyroidism can lead to more frequent migraine headaches, need to fix that issue MRI brain without acute stroke so her difficulty speaking and numbness likely complex migraine, although neurology not convinced received Tylenol, Benadryl and Compazine IV today for migraine, provided little relief discussed important of avoiding Percocet and Fioricet longterm, patient has been taking for years, not interested in changing Total Time Total Time Spent Total Time Spent (In Minutes): discharge in excess of 30 minutes Discharge Plan Discharge Items Patient Disposition: Home - Self-Care Reason For Visit: HYPERCALCEMIA Discharge Diagnosis: 1. Migraine with aura 2. Hypercalcemia, since resolved 3. Hypothyroidism 4. Uncomplicated urinary tract infection Condition on Discharge: Good Activity: Resume your previous activity Lifting: Gradually increase as tolerated Bathing: No limitations Sexual Activity: When tolerated Driving/Machine Use: No limitations Weightbearing: Full weightbearing Non-emergency contact: Primary Care Provider and Neurologist Call non-emergency contact if: you have any medication questions Follow-up/Referrals: Kevin Heard MD [Physician] - 02/25/19 Damien Marie MD [Physician] - 02/28/19 7:45 am Sangeeta Tejeda MD [Primary Care Provider] - Diet: Regular Addtl Attending Provider Instructions: Keep your follow-up appointments as previously scheduled. Pending Studies at Discharge: No Stand-Alone Forms: My [employer], Smoking Cessation Medications and DC Order Prescriptions: New cefdinir 300 mg capsule 300 mg PO BID 6 Days Qty: 12 RF: 0 Continued gabapentin 600 mg tablet 600 mg PO QID RF: 0 Ajovy 225 mg/1.5 mL syringe 225 mg SQ .every 30 days Qty: 1.5 RF: 5 rizatriptan 10 mg tablet,disintegrating 10 mg PO Q2H PRN (Reason: migraine headache) Qty: 12 RF: 5 metoclopramide HCl 10 mg tablet 10 mg PO BID PRN (Reason: nausea, migraine) Qty: 30 RF: 2 levothyroxine 175 mcg tablet 175 mcg PO QAM RF: 0 propranolol 160 mg capsule,extended release 24 hr 160 mg PO QAM RF: 0 amitriptyline 100 mg tablet 100 mg PO HS RF: 0 [id number]-cod [id number] mg capsule 1 cap PO Q6H PRN (Reason: Migraine Headache) RF: 0 diphenhydramine HCl [Benadryl Allergy] 25 mg tablet 25 mg PO Q8H PRN (Reason: migraine headache) Qty: 10 RF: 0 oxycodone-acetaminophen [Percocet] 5-325 mg Tablet 1 tab PO Q8H PRN (Reason: Pain) RF: 0 Discharge Orders: Discharge Order (Routine); Ordered 02/23/19 Ordered By: Edison Bender Admission Data Admit Date/Time: 02/20/19 15:09 Attending Provider: Edison Bender Admit Provider: Chidi Scott Primary Care Provider: Sangeeta Tejeda Other Providers: Chidi Scott ; Trinh Brooke ; Harjeet Her
[2019-02-23] MEDS ORDERED: cefTRIAXone SODIUM 2,000 MG in DEXTROSE 5% 50 ML IV ONE (10:00)
== END 2019-02-23 12:20 | disposition home or self-care (01) | DRG 641 ==
LOC: ED 09:27 → SUATTDRO 15:09 → 2N 15:09